=== PATIENT | male | born 1970 | race African-American/Black ===

== ENCOUNTER 2018-08-12 15:12 | Emergency (ER) | payer MEDICAID ==
[~2018-08-12] VITALS: Ht 182.9 cm; Wt 104.3 kg
--- NOTE | 2018-08-12 15:59 | EKG ---
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
--- NOTE | 2018-08-12 15:59 | PHYS DOC ---
Past Medical History Past Medical History: CVA, Diabetes-Type II, DVT, [place] Additional Past Medical Histor: pancreatitis, hyperlipidemia, PE, substance abuse Smoking: Cigarettes Alcohol Use: Rarely Drug Use: None Adult General Chief Complaint Chief Complaint: CHEST PAIN HPI HPI 48-year-old male presents to ER via POV for complaints of chest pain. Patient reports chest pain started getting worse approximately 15 minutes ago while sitting at his cousin's house. Patient reports he just left AMA from [facility] today and his sister had picked him up today. Patient reports he had a stroke and they had administered TPA on Wednesday. Patient reports the doctors had wanted him to stay longer at the hospital but he did not want to stay due to his dislike of the hospital seen. Patient reports he has had ongoing mid chest pain while he was inpatient at . Patient reports pain today is similar to what he was experiencing however approximately 15 minutes ago pain did slightly increase so he came to hospital for evaluation. Patient reports he was diagnosed approximately 8 months ago with a DVT in his right lower extremity and has been on Coumadin for that. Patient during initial exam had conflicting recall of his recent hospitalization making it difficult to determine what tx he had received at . Discussed obtaining records from [facility] to further determine his treatment received prior to treatment in the ER. Patient is agreeable with obtaining records from . Review of Systems Review of Systems Constitutional: Denies fever or chills. Denies weakness/fatigue Eyes: Denies change in visual acuity, redness, or eye pain [] HENT: Denies nasal congestion or sore throat [] Respiratory: Denies cough or shortness of breath [] Cardiovascular: Reports chest pain- denies palpitations. Reports had CP when he left [facility] similar to current pain- he reports pain did increase about 15 min. 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 Denies incontinence Musculoskeletal: Denies back/neck pain or joint pain [] Integument: Denies rash, swelling or skin lesions [] Neurologic: Denies headache or sensory changes. Denies dizziness or lightheadedness. Reports rt side weakness similar to when at Med. Endocrine: Denies polyuria or polydipsia [] All other systems were reviewed and found to be within normal limits, except as documented in this note. Current Medications Current Medications Current Medications Medications (Trade) Dose Ordered Sig/Shane Start Time Stop Time Status Last Admin Dose Admin Acetaminophen (Tylenol) 650 mg 1X ONCE 08/12/18 17:30 08/12/18 17:48 DC Allergies Allergies Allergies Coded Allergies Type Severity Reaction Last Updated Verified NSAIDS (Non-Steroidal Anti-Inflamma Allergy Intermediate 08/12/18 Yes aspirin Allergy Intermediate 08/12/18 Yes morphine Allergy Intermediate 08/12/18 Yes prednisone Allergy Intermediate 08/12/18 Yes Physical Exam Physical Exam Constitutional: Well developed, well nourished, no acute distress, non-toxic appearance. Clear speech with symmetric facial features. No slurring of words HENT: Normocephalic, atraumatic, bilateral ears normal, oropharynx moist, no oral exudates, nose normal. [] Eyes: 3 mm PERRLA, EOMI, no nystagmus conjunctiva normal, no discharge. [] Neck: Normal range of motion, no tenderness, supple, no stridor. [] Cardiovascular:Heart rate regular rhythm, no murmur [] Lungs & Thorax: Bilateral breath sounds clear to auscultation. Respirations equal and nonlabored Abdomen: Bowel sounds normal, soft, no tenderness, no masses, no pulsatile masses. [] Skin: Warm, dry, no erythema, no rash. [] Back: No tenderness, no CVA tenderness. [] Extremities: No tenderness, no cyanosis, no clubbing, no edema. [] Neurologic: Alert and oriented X 3, normal motor function, during exam when asked to lift rt leg pt initially stated he had was unable to lift- when told he was visualized standing from w/c to the ER cart with full use of rt LE pt then was able to lift rt leg with no drift. Pt did similar with rt upper extremity- telephonic case manager was equal once again following pt being informed that he was visualized with movement he was able to move rt arm- although does have less movement in rt upper extrem. Uncertain if this is an accurate exam as pt appeared to minimize his movements purposely Psychologic: Affect normal, judgement normal, mood normal. [] Current Patient Data Vital Signs Vital Signs Date Time Temp Pulse Resp B/P (MAP) Pulse Ox O2 Delivery O2 Flow Rate FiO2 08/12/18 17:09 84 18 121/78 (92) 96 Room Air 11/2/18 15:19 99.0 99.0 Lab Values Laboratory Tests Test 08/12/18 16:28 08/12/18 16:30 Prothrombin Time 15.8 SEC (11.7-14.0) H Prothrombin Time INR 1.3 (0.8-1.1) H PTT 26 SEC (24-38) Sodium Level 140 mmol/L (136-145) Potassium Level 3.4 mmol/L (3.5-5.1) L Chloride Level 106 mmol/L (98-107) Carbon Dioxide Level 23 mmol/L (21-32) Anion Gap 11 (6-14) 17 mmol/L (6-14) H Blood Urea Nitrogen 11 mg/dL (8-26) Creatinine 1.1 mg/dL (0.7-1.3) Estimated GFR (Cockcroft-Gault) 71.1 BUN/Creatinine Ratio 10 (6-20) Glucose Level 90 mg/dL (70-99) 87 mg/dL (70-99) Calcium Level 9.4 mg/dL (8.5-10.1) Total Bilirubin 0.4 mg/dL (0.2-1.0) Aspartate Amino Transferase (AST) 29 U/L (15-37) Alanine Aminotransferase (ALT) 48 U/L (16-63) Alkaline Phosphatase 93 U/L (46-116) Troponin I Quantitative < 0.017 ng/mL (0.000-0.055) Total Protein 7.6 g/dL (6.4-8.2) Albumin 3.4 g/dL (3.4-5.0) Albumin/Globulin Ratio 0.8 (1.0-1.7) L POC Hemoglobin 12.2 g/dL (14-18) L POC Hematocrit 36 % (37-52) L POC Sodium 141 mmol/L (135-145) POC Potassium 3.4 mmol/L (3.5-5.0) L POC Chloride 106 mmol/L (98-110) POC Total CO2 22 mmol/L (23-32) L POC Blood Urea Nitrogen 10 mg/dL (8-26) POC Creatinine 1.0 mg/dL (0.5-1.4) POC Ionized Calcium (Noemy) 1.12 mmol/L (1.13-1.32) L Laboratory Tests 08/12/18 16:28 08/12/18 16:30 EKG EKG EKG obtained 08/12/18 at [address] Dove Sinus tachycardia Rate 116 No STEMI Radiology/Procedures Radiology/Procedures PROCEDURE: CT HEAD WO CONTRAST PQRS Compliance Statement: One or more of the following individualized dose reduction techniques were utilized for this examination: 1. Automated exposure control 2. Adjustment of the mA and/or kV according to patient size 3. Use of iterative reconstruction technique CT HEAD WITHOUT CONTRAST History: POSSIBLE CVA, RIGHT SIDE NUMBNESS Comparison: CT head without contrast, [facility], July 10, 2014. Procedure: Axial images are obtained of the head from the skull base through the vertex without IV contrast. Findings: The ventricles and sulci are normal for the patient's age. No mass-effect, midline shift, hemorrhage, extra-axial fluid collection, or obvious acute infarction is identified. Basilar cisterns are patent. Bone windows demonstrate no acute calvarial abnormality. The visualized paranasal sinuses are clear. Mastoid air cells are well aerated. IMPRESSION: No acute intracranial abnormality. Electronically signed by: Anand Robb MD (08/12/2018 4:13 PM) [id number] DICTATED and SIGNED BY: ANAND ROBB MD DATE: 08/12/18 1610 PROCEDURE: CHEST AP ONLY CHEST AP ONLY Clinical Indication: CHEST PAIN Comparison: Two-view chest, December 17, 2009. Findings: The cardiomediastinal silhouette is normal. Lungs are clear. There is no pneumothorax. No pleural effusion is appreciated. No acute bone abnormality. IMPRESSION: No acute cardiopulmonary process. Electronically signed by: Anand Robb MD (08/12/2018 3:58 PM) [id number] DICTATED and SIGNED BY: ANAND ROBB MD DATE: 08/12/18 1556 Course & Med Decision Making Course & Med Decision Making Pertinent Labs and Imaging studies reviewed. (See chart for details) After initial exam w/pt discussed pt's case and plan of care with Dr. Dove- pt provided conflicting information to him than he had with this provider on when he had stopped his Coumadin and when he left AMA from [facility]. 1715: There was a delay in getting patient's labs- he reports he is a " difficult stick". Discussed test results with patient with EKG showing no acute ST elevation or STEMI and ISTAT troponin <0.017; H&H stable at 12.2/36; chest x- ray with no acute findings. Head CT no acute findings this was discussed in depth with patient along with waiting on medical records from patient's recent admission this week. Pt is not wanting admission unless pain can be managed. Discuss that ACS could not be completely r/o with initial troponin as he had reported CP had increased just TREASURY ASSOCIATE to this ER. Pt after discussion is still not wanting to be admitted. Discussed repeating troponin in 2 hours to further rule out ACS- and pt is agreeable with this plan. Will provide patient with dose of Tylenol for pain. Patient at this time is in no visible distress with heart rate 84 and O2 sat 99% on room air. Pt remains neuro and vascular intact in all extremities. Patient is alert and oriented 3 with no neuro focal deficits. 1738: RN reports patient called out and is requesting to leave the ER. Upon entering the room patient reports he is not willing to stay for repeat troponin and is wanting to be discharged from the ER. Discussion had with patient regarding repeat troponin to further rule out ACS and that at this time he would have to check out AMA as further testing was advised. Patient was educated on risks of leaving AMA as well as benefits from staying for further testing. Patient verbalized understanding however is still wanting to check out AMA without repeat troponin or further monitoring. Should be noted that pt was able to ambulate without assist and dress himself- he was seen in the doorway of R[facility] with steady gait waiting on AMA paperwork. He had clear speech and was in no visible distress. Pt had no facial drooping, dragging of his rt LE, slurring of words, or difficulty grabbing paperwork from nurse. Pt walked out of the ER unassisted. Pt's paperwork had arrived via fax from [facility] as pt was leaving AMA. It was noted by Dr. Thaddeus Mercado MD that "there were several features on exam concerning for functional etiology of symptoms, including positive Norwood's sign and give way weakness. Pt also had persistent request of narcotics and refusal of other alternatives and refusal of NG tube. Pt also had refused to sign consent to request records from outside hospital. Regarding chest pain, ECG/troponin, CT chest w/o contrast, and VQ scan all unrevealing for etiology. Diagnosis likely not acute stroke, and more likely conversion disorder vs malingering. Pt requested to leave AMA overnight 08/10/18". Further noted by this physician "Pt able to ambulate out of unit". IN records it was noted "#PE/DVT -off Coumadin for 3d (ran out)" however pt reported to this ER he had stopped taking his Coumadin on Wednesday 08/08 and was admitted to on . Pt's MRA head w/o results from [facility] reported "no signifcant arterial stenosis or major branch vessel occlusion of the cerebral arterial vasculature"- CT chest w/o reported " unchanged size and contour of the thoracic aorta since September 2007 w/o calcified aortic plaque, intramural hematoma, or periaortic inflammation"; CXR report " The lung volume is normal. No pleural effusion or pneumothorax. Heart size is normal. Normal thoracic aorta ". In progress note on 08/10/18- Dr. Maria E Galvez MD reported "pt refusing to stay at . Pt stated that psychiatry and pain management promised medications to help with his 07/20 pain. Pt also stated that he spoke to another physician around 6:30 pm, who also promised him pain medications". Further writing from this physician "Pt continued to attempt to manipulate blurb writer into giving him medications". Pt had reported to this provider that he left AMA from prior to receiving a prescription for his Coumadin although there are discharge instructions in pt's records with information on his Rx'd Coumadin. So uncertain accuracy of pt's information he had provided during this ER visit. Dragon Disclaimer Dragon Disclaimer This electronic medical record was generated, in whole or in part, using a voice recognition dictation system. 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
--- NOTE | 2018-08-12 16:16 | RAD ---
PQRS Compliance Statement: One or more of the following individualized dose reduction techniques were utilized for this examination: 1. Automated exposure control 2. Adjustment of the mA and/or kV according to patient size 3. Use of iterative reconstruction technique CT HEAD WITHOUT CONTRAST History: POSSIBLE CVA, RIGHT SIDE NUMBNESS Comparison: CT head without contrast, [facility], July 10, 2014. Procedure: Axial images are obtained of the head from the skull base through the vertex without IV contrast. Findings: The ventricles and sulci are normal for the patient's age. No mass-effect, midline shift, hemorrhage, extra-axial fluid collection, or obvious acute infarction is identified. Basilar cisterns are patent. Bone windows demonstrate no acute calvarial abnormality. The visualized paranasal sinuses are clear. Mastoid air cells are well aerated. IMPRESSION: No acute intracranial abnormality. Electronically signed by: Anand Robb MD (08/12/2018 4:13 PM) [id number]
[2018-08-12 16:42] LABS: HEMOGLOBIN ISTAT 12.2 g/dL (14-18); ION CA ISTAT 1.12 mmol/L (1.13-1.32); POTASSIUM ISTAT 3.4 mmol/L (3.5-5.0)
[2018-08-12 16:49] LABS: PROTHROMBIN TIME PATIENT 15.8 SEC (11.7-14.0)
[2018-08-12 16:53] LABS: CALCIUM 9.4 mg/dL (8.5-10.1); CREATININE 1.1 mg/dL (0.7-1.3); GFR 71.1; POTASSIUM 3.4 mmol/L (3.5-5.1)
[2018-08-12 16:59] LABS: ALBUMIN 3.4 g/dL (3.4-5.0); ALBUMIN/GLOBULIN RATIO 0.8 (1.0-1.7); TOTAL BILIRUBIN 0.4 mg/dL (0.2-1.0); TOTAL PROTEIN 7.6 g/dL (6.4-8.2)
[2018-08-12 17:09] VITALS: BP 121/78
[2018-08-12] MEDS ORDERED: ACETAMINOPHEN 325 MG TABLET. PO ONE (17:30)
== END 2018-08-12 17:52 | disposition left against medical advice (07) ==
LOC: ER 15:12
DX: R07.89 Other chest pain (principal); I25.2 Old myocardial infarction; E11.9 Type 2 diabetes mellitus without complications; E78.00 Pure hypercholesterolemia, unspecified; Z86.711 Personal history of pulmonary embolism; F17.210 Nicotine dependence, cigarettes, uncomplicated; Z86.718 Personal history of other venous thrombosis and embolism; Z79.01 Long term (current) use of anticoagulants; Z88.6 Allergy status to analgesic agent; Z88.5 Allergy status to narcotic agent; Z88.8 Allergy status to other drugs, medicaments and biological substances
CPT/HCPCS: 36415; 70450; 71045; 80047; 80053; 84484; 85610; 85730; 93005; 99285-25

== ENCOUNTER 2020-05-28 01:35 | Inpatient (IN) | payer MEDICAID ==
[2020-05-28] VITALS (18 sets, daily range): BP systolic 123–176; BP diastolic 77–101
[~2020-05-28] VITALS: Ht 182.9 cm; Wt 85.7 kg
[~2020-05-28 01:35] MED LIST: APIX5TAB PO; ATOR40TA59 PO; DIPH25CA58 PO; EPIPEN0.3 MG/0.3 IM; FENT1PAT17 TP; GABA300C18 PO; LISI10TA2 PO; OXYC10TA46 PO; OXYC1TAB22 PO; PANT40TA77 PO; PROM25AM6 IJ
--- NOTE | 2020-05-28 01:57 | PHYS DOC ---
Past Medical History Past Medical History: CVA, Diabetes-Type II, DVT, [place] Additional Past Medical Histor: pancreatitis, hyperlipidemia, PE, substance abuse Smoking Status: Current Every Day Smoker Alcohol Use: Rarely Drug Use: None General Adult HPI: HPI: Patient is a 49 year old male who presents with swelling of his face. Patient told me that he has had this happen as long as he can remember. In addition he has family members who suffers from the same problem. He will intermittently develop swelling of his face and neck which eventually resulted in him needing to be intubated. He said he has been told that "his body is fighting himself ". Patient reports chest pain but he states that this chest pain and shortness of breath is secondary to the swelling that happens when this hits him. It also causes him to have some abdominal pain and he reports severe pain at this time. Given the emergent nature of this situation review of systems is limited to shortness of breath, positive for chest pain, no fever or chills, positive for abdominal pain, no nausea or vomiting, no melena or hematochezia. Review of Systems: Review of Systems: Limited secondary to patient's medical acuity] Heart Score: Risk Factors: Risk Factors: DM, Current or recent (<one month) smoker, HTN, HLP, family history of CAD, obesity. Risk Scores: Score 0 - 3: 2.5% MACE over next 6 weeks - Discharge Home Score 4 - 6: 20.3% MACE over next 6 weeks - Admit for Clinical Observation Score 7 - 10: 72.7% MACE over next 6 weeks - Early Invasive Strategies Current Medications: Current Medications Medications (Trade) Dose Ordered Sig/[facility] Start Time Stop Time Status Last Admin Dose Admin Atropine Sulfate (ATROPINE 0.5mg SYRINGE) 0.5 mg 1X ONCE 05/28/20 02:00 05/28/20 02:01 Midazolam HCl (Versed) 5 mg 1X ONCE 05/28/20 02:00 05/28/20 02:01 Rocuronium [place] (Zemuron) 42 mg 1X ONCE 05/28/20 02:00 05/28/20 02:01 UNV Allergies: Allergies: Allergies Coded Allergies Type Severity Reaction Last Updated Verified iodine Allergy Severe 09/15/19 Yes metoclopramide Allergy Severe 09/15/19 Yes ondansetron Allergy Severe ANAPHYLAXIS 09/15/19 Yes NSAIDS (Non-Steroidal Anti-Inflamma Allergy Intermediate 09/15/19 Yes aspirin Allergy Intermediate 09/15/19 Yes morphine Allergy Intermediate 09/15/19 Yes prednisone Allergy Intermediate 09/15/19 Yes Physical Exam: PE: Constitutional: Well developed, well nourished, moderate pain distress non-toxic appearance. [] HENT: Normocephalic, atraumatic, bilateral external ears normal, oropharynx moist, no oral exudates, nose normal. Tongue is normal in size, uvula is mildly enlarged, [] Eyes: PERRLA, EOMI, conjunctiva normal, no discharge. [] Neck: Normal range of motion, no tenderness, supple, no stridor. Soft tissue swelling of the lateral neck no masses [] Cardiovascular:Heart rate regular rhythm, no murmur [] Lungs & Thorax: Bilateral breath sounds clear to auscultation [] Abdomen: Bowel sounds normal, soft, no tenderness, no masses, no pulsatile masses. [] Skin: Warm, dry, no erythema, no rash. [] Back: No tenderness, no CVA tenderness. [] Extremities: No tenderness, no cyanosis, no clubbing, ROM intact, no edema. [] Neurologic: Alert and oriented X 3, normal motor function, normal sensory function, no focal deficits noted. [] Psychologic: Affect agitated, judgment normal, mood frightened. [] EKG: EKG: [] Radiology/Procedures: Radiology/Procedures: Indication: Respiratory failure Consent: Unable to give consent due to emergent nature. Medications Used: see nursing note Procedure: The patient was placed in the appropriate position. Intubation was performed with direct laryngoscope and a gum bougie as well as a 7.5 ETT. ETT was secured at 22 cm at the teeth. Initial confirmation of placement included bilateral breath sounds, tube fogging, adequate chest rise, adequate pulse oximetry reading. A chest x-ray to verify correct placement of the tube showed appropriate tube position. The patient tolerated the procedure well. Complications: none.[] Indication: Vascular access Consent: The patient provided consent for this procedure. Procedure: The patient was placed in the supine position. The right IJ area was prepped and draped in the usual fashion. Using ultrasound we were able to identify a possible area that would be consistent with the internal jugular vein. However after 2 attempts I was unable to maintain a high level of confidence that I was in the appropriate vein. I then switched to the left side. The left IJ area was then prepped and draped in the usual fashion. Using ultrasound I was able to identify very small left internal jugular vein.I was unable to cannulate secondary to a code being called at the time. I then abandoned the procedure and asked anesthesia to proceed with insertion. The patient tolerated the procedure well. Complications: Unable to perform [] Course & Med Decision Making: Course & Med Decision Making Pertinent Labs and Imaging studies reviewed. (See chart for details) 0156-after discussion with the patient I think he needs emergent intubation. I did discuss the treatment with the pharmacy and he did they do not have any C1 esterase inhibitor available to him. In addition no treatments are really effective hereditary angioedema. Although I do not know that this is the definitive diagnosis I highly suspect it. We will go ahead and treat with epinephrine and Benadryl and Pepcid. [] Dragon Disclaimer: Dragon Disclaimer: This electronic medical record was generated, in whole or in part, using a voice recognition dictation system. Departure Departure Impression: Primary Impression: Hereditary angioedema Additional Impressions: Acute respiratory failure Qualified Codes: J96.00 - Acute respiratory failure, unspecified whether with hypoxia or hypercapnia Chest pain Qualified Codes: R07.9 - Chest pain, unspecified Disposition: ADMITTED INPATIENT Condition: CRITICAL Referrals: UNKNOWN PCP NAME (PCP) Justicifation of Admission Dx: Justifications for Admission: Justification of Admission Dx: Yes Respiratory Failure: Airway Obstruction Critical Care Note Total Time (mins): 75 Comments A total of 75 minutes of critical care time was billed secondary to impending collapse of the cardiovascular and respiratory system. This was time billed outside of any procedure or teaching time. ELVIE DURAN MD May 28, 2020 01:57
[2020-05-28] MEDS ORDERED: ATROPINE 0.5 MG/5 ML DISP.SYRINGE. IV ONE (02:00)
[2020-05-28] MEDS ORDERED: MIDAZOLAM HCL/PF 5 MG/5 ML VIAL. NS ONE ×2 (02:00→04:00)
[2020-05-28] MEDS ORDERED: ROCURONIUM 50 MG/5 ML VIAL. IV ONE (02:00)
[2020-05-28] MEDS ORDERED: PROPOFOL 10 MG/ML (20ML) VIAL. IV ONE ×4 (02:03→03:22)
[2020-05-28] MEDS ORDERED: PROPOFOL 50 ML IV ONE (02:30)
[2020-05-28] MEDS ORDERED: PROPOFOL 100 ML IV PRN (02:30)
[2020-05-28] MEDS ORDERED: FAMOTIDINE 20 MG/2 ML VIAL IVP ONE (03:00)
[2020-05-28] MEDS ORDERED: diphenhydrAMINE 50 MG/ML VIAL IVP ONE ×2 (03:00→12:00)
--- NOTE | 2020-05-28 03:05 | RAD ---
INDICATION: Reason: Postintubation / Spl. Instructions: / History: COMPARISON: September 12, 2019 FINDINGS: Single view of chest obtained. Endotracheal tube near thoracic inlet. Enteric tube is seen coursing below the diaphragm with tip at expected location of stomach. Air-filled prominent loops of bowel and partially visualized left upper quadrant of abdomen. Hazy opacity at the left greater than right lung base IMPRESSION: * Lines and tubes as above. * Hazy opacity at the left greater than right lung base which could be from atelectasis, infiltrate or aspiration. Electronically signed by: Renny Goncalves MD (05/28/2020 3:02 AM) [id number]
[2020-05-28 04:58] LABS: BASE EXCESS ABG 0 mmol/L (-3-3); FIO2 ABG 40; HCO3 ABG 25 mmol/L (21-28); PCO2 ABG 44 mmHg (35-46); PO2 ABG 148 mmHg (75-108); SAT O2 ABG 99 % (92-99)
[2020-05-28] MEDS ORDERED: PROPOFOL 50 ML IV PRN (05:30)
--- NOTE | 2020-05-28 06:43 | RAD ---
INDICATION: Reason: pOST CENTRAL LINE / Spl. Instructions: / History: COMPARISON: Earlier same day FINDINGS: Single view of chest obtained. Endotracheal tube mid thoracic trachea. Enteric tube is seen with tip at left upper quadrant of the abdomen at expected location of the stomach. Right-sided vascular catheter with tip projecting over atriocaval junction. Mild opacity at the left lung base. IMPRESSION: * Lines and tubes as above. * Hazy opacity left lung base which could be from atelectasis or infiltrate. Electronically signed by: Renny Goncalves MD (05/28/2020 6:41 AM) [id number]
[2020-05-28 07:00] LABS: BILIRUBIN,URINE NEGATIVE (NEG); CLARITY,URINE CLEAR; COLOR,URINE YELLOW; NITRITE,URINE NEGATIVE (NEG); PH,URINE 6.5 (<5.0-8.0); PROTEIN,URINE NEGATIVE (NEG-TRACE)
[2020-05-28 07:07] LABS: AMPHETAMINE/METHAMPHETAMINE NEG (NEG); BARBITURATES NEG (NEG); BENZODIAZEPINES POS (NEG); CANNABINOIDS NEG (NEG); COCAINE NEG (NEG); METHADONE NEG (NEG); OPIATES POS (NEG); PHENCYCLIDINE NEG (NEG)
[2020-05-28] MEDS ORDERED: ROCURONIUM 50 MG/5 ML VIAL. ONE (07:07)
[2020-05-28] MEDS ORDERED: diphenhydrAMINE 50 MG/ML VIAL ONE (07:15)
[2020-05-28] MEDS ORDERED: FAMOTIDINE 20 MG/2 ML VIAL ONE (07:15)
[2020-05-28 07:19] LABS: AMORPHOUS SEDIMENT,UR PRESENT /HPF; BACTERIA,URINE 0 /HPF (0-FEW); RBC,URINE OCC /HPF (0-2); WBC,URINE 0 /HPF (0-4)
[2020-05-28 07:19] LABS: BASO % 1 % (0-3); EOS # 0.2 x10^3/uL (0.0-0.7); EOS % 4 % (0-3); HEMATOCRIT 34.5 % (39.0-53.0); HEMOGLOBIN 11.6 g/dL (13.0-17.5); LYMPH # 0.7 x10^3/uL (1.0-4.8); LYMPH % 18 % (24-48); MEAN CORPUSCULAR HEMOGLOBIN 30 pg (25-35); MEAN CORPUSCULAR HGB CONC 34 g/dL (31-37); MEAN CORPUSCULAR VOLUME 88 fL (79-100); MONO # 0.3 x10^3/uL (0.0-1.1); MONO % 9 % (0-9); NEUT # 2.7 x10^3/uL (1.8-7.7); NEUT % 68 % (31-73); PLATELET COUNT 216 x10^3/uL (140-400); RED BLOOD COUNT 3.91 x10^6/uL (4.30-5.70); RED CELL DISTRIBUTION WIDTH 14.4 % (11.5-14.5); WHITE BLOOD COUNT 3.9 x10^3/uL (4.0-11.0)
[2020-05-28] MEDS: IV NORMAL SALINE 1000ML BAG 1,000 ML IV SCH ×2 (07:25→21:15)
[2020-05-28 07:29] LABS: CALCIUM 9.1 mg/dL (8.5-10.1); CREATININE 0.6 mg/dL (0.7-1.3); GFR 172.6; POTASSIUM 3.5 mmol/L (3.5-5.1)
[2020-05-28] MEDS: amLODIPine BESYLATE 10 MG TABLET PO SCH (11:57)
--- NOTE | 2020-05-28 12:09 | CONS ---
DATE OF CONSULTATION: 05/28/2020 PULMONARY CONSULTATION REASON FOR CONSULTATION: Respiratory failure, angioedema. HISTORY OF PRESENT ILLNESS: The patient is a 49-year-old male who has known history of sarcoidosis, details of which are unknown. He has history of hereditary angioedema. He has history of tongue and face swelling chronically. Has required intubation a month ago. He presented to [facility] with swelling of his face. He had some chest pain as well as shortness of breath. There was some abdominal pain as well. The patient was intubated for airway protection. He has allergies to NONSTEROIDAL ANTI-INFLAMMATORY WELL IODINE AND PREDNISONE. He was transferred to our facility for further care. Currently, he is intubated and sedated with Versed. ABG showed a pH of 7.38, pCO2 of 44 and a pO2 148 on 40% FiO2. His urine drug screen was positive for opiates. I have been asked to see him for further evaluation. I have reviewed the patient's chest x-ray. No definite consolidation seen. He has some atelectasis of the left base. PAST MEDICAL HISTORY: History of sarcoidosis, details unknown, history of PE. History of deep venous thrombosis, history of CVA, history of substance abuse and history of hereditary angioedema. PAST SURGICAL HISTORY: Unknown. ALLERGIES: NONSTEROIDALS, ASPIRIN, IODINE, METOCLOPRAMIDE, MORPHINE, ONDANSETRON, AND PREDNISONE. REVIEW OF SYSTEMS: Unable to obtain from the patient. SOCIAL HISTORY: Is everyday smoker. MEDICATIONS: Reviewed as listed in the MRAD including Versed, fentanyl and Benadryl. PHYSICAL EXAMINATION: VITAL SIGNS: Reviewed. Blood pressure is stable, diastolic, mildly higher. Pulse ox 100%. HEENT: Visual exam done due to COVID suspected. No paradoxical breathing. SKIN: With no rash. EXTREMITIES: Leg with no edema and face with no obvious swelling. LABORATORY DATA: Reviewed. Chemistries: BUN and creatinine normal. INR 1.1. White cell count 3.9, hemoglobin 11.6 and platelets are 216. IMPRESSION: 1. Acute respiratory failure secondary to angioedema. This is a patient who has had hereditary angioedema and required intubation over a month ago. Currently, his facial swelling appears to have improved. He will be rested on assist control mode for another 24 hours. 2. History of deep venous thrombosis and pulmonary embolism, on home Eliquis. 3. History of sarcoidosis, details unknown. 4. History of tobacco use. RECOMMENDATIONS: 1. We will continue with present assist control mode along with sedation. 2. We will do the cuff deflation test in the next 24 hours. 3. Continue p.r.n. Benadryl. 4. Continue home Eliquis. 5. Stress ulcer prophylaxis. 6. Discussed with RN and RT. Critical care time is 37 minutes, Dr. Corbin. TEGAN MARTIN MD DR: BARAK/araceli JOB#: [id number] / [id number]
--- NOTE | 2020-05-28 12:39 | NUR ---
SS following for discharge planning. SS reviewed pt chart and discussed with pt RN. Pt is from home and is currently on the vent. COVID19 pending. SS will continue to follow for discharge planning.
--- NOTE | 2020-05-28 13:22 | HP ---
ADMIT DATE: 05/28/2020 CHIEF COMPLAINT: Shortness of breath, facial swelling. HISTORY OF PRESENT ILLNESS: The patient is a pleasant 49-year-old male well known to our service. We admit him once a month or so. At this time, he presents with unusual symptoms. He has swelling of his face. Apparently, this runs in his family. He lost his airway and had to be intubated in the ER, is now in the ICU on the vent. PAST MEDICAL HISTORY: Stroke, diabetes, hypertension, hyperlipidemia, PE, substance abuse, pancreatitis, tobacco abuse. ALLERGIES: NSAIDs, METOCLOPRAMIDE, MORPHINE, ONDANSETRON, AND PREDNISONE. FAMILY HISTORY: Diabetes. SOCIAL HISTORY: He quit drinking. He still takes drugs and smokes. MEDICATIONS: Reviewed, please refer to the MRAD. REVIEW OF SYSTEMS: Unable to obtain. The patient is on the vent. PHYSICAL EXAMINATION: VITALS: Within normal limits and are stable. GENERAL: He is intubated and sedated. HEENT: Normal cephalic atraumatic, external auditory canals are patent EYES: Extraocular muscles are intact, pupils are equally round and reactive to light and accommodation MUSCULOSKELETAL: Well developed, well nourished, good range of motion ENDOCRINE: No thyromegaly was palpated LYMPHATICS: No cervical chain or axillary nodes were noted HEMATOPOIETIC: No bruising NECK: Supple, no JVD, no thyromegaly was noted. LUNGS: He has decreased breath sound. He is on the vent, AC/16/450 with 40% FiO2 and 5 of PEEP and he is satting 100%. HEART: RRR, S1, S2 present. Peripheral pulses intact, no obvious murmurs were noted. ABDOMEN: Soft, nontender. Positive bowel sounds no organomegaly, normal bowel sounds. EXTREMITIES: Without any cyanosis, clubbing, or edema. Pedal pulses intact, Homans sign is negative. NEUROLOGIC: He is sedated. PSYCHIATRIC Unobtainable. SKIN: No ulcerations or rashes, good skin turgor, no jaundice. VASCULAR: Good capillary refill, neurovascular bundle appears to be intact. ASSESSMENT AND PLAN: Angioedema. The patient has been admitted. He got treated with IV Benadryl, IV Pepcid and IV Zemuron. We have consulted Pulmonary for vent management. Continue home meds including Eliquis. GI prophylaxis. LONG-TERM PROGNOSIS: Guarded. KEESHAL Blossom GARCIA DO DR: LURDES/araceli JOB#: [id number] / [id number]
[2020-05-28] MEDS: ANTI-COAG MONITOR BY PHARMACY. MC PRN (14:38)
[2020-05-28] MEDS: MIDAZOLAM HCL 100 MG in IV NORMAL SALINE 100ML 100 ML IV PRN (17:19)
[2020-05-28] MEDS: diphenhydrAMINE 50 MG/ML VIAL IVP SCH ×2 (17:19→23:43)
[2020-05-28] MEDS: FAMOTIDINE 20 MG/2 ML VIAL IVP SCH (21:14)
[2020-05-28] MEDS: APIXABAN 5 MG TABLET. PO SCH (21:14)
[2020-05-29] VITALS (21 sets, daily range): BP systolic 108–159; BP diastolic 67–99
[2020-05-29] MEDS: MIDAZOLAM HCL 100 MG in IV NORMAL SALINE 100ML 100 ML IV PRN (04:30)
[2020-05-29] MEDS: diphenhydrAMINE 50 MG/ML VIAL IVP SCH ×4 (06:02→23:45)
[2020-05-29 07:38] LABS: BASE EXCESS ABG -3 mmol/L (-3-3); HCO3 ABG 22 mmol/L (21-28); PCO2 ABG 37 mmHg (35-46); PO2 ABG 128 mmHg (75-108); SAT O2 ABG 98 % (92-99)
[2020-05-29] MEDS: FAMOTIDINE 20 MG/2 ML VIAL IVP SCH ×2 (07:39→20:49)
[2020-05-29] MEDS: amLODIPine BESYLATE 10 MG TABLET PO SCH (07:39)
[2020-05-29] MEDS: APIXABAN 5 MG TABLET. PO SCH ×2 (07:39→20:00)
[2020-05-29 09:24] LABS: FIO2 ABG 40
[2020-05-29] MEDS: ANTI-COAG MONITOR BY PHARMACY. MC PRN (09:32)
--- NOTE | 2020-05-29 10:09 | PDOC ---
PULMONARY PROGRESS NOTES DATE: 05/29/20 TIME: 10:06 Subjective Pt. is awake and alert, off sedation, Positive cuff leak, place on CPAP trial and tolerating Vitals Vital Signs Date Time Temp Pulse Resp B/P (MAP) Pulse Ox O2 Delivery O2 Flow Rate FiO2 05/29/20 09:00 75 18 145/83 (103) 100 Ventilator 05/29/20 07:52 98.7 98.7 Comments intubated Lungs: Clear, Other Cardiovascular: S1, S2 Abdomen: Soft, Non-tender Neuro Exam: Alert Extremities: No Edema Labs Laboratory Tests Test 05/28/20 04:55 05/28/20 06:41 05/28/20 06:48 05/29/20 07:15 O2 Saturation 99 % (92-99) 98 % (92-99) Arterial Blood pH 7.38 (7.35-7.45) 7.39 (7.35-7.45) Arterial Blood pCO2 at Patient Temp 44 mmHg (35-46) 37 mmHg (35-46) Arterial Blood pO2 at Patient Temp 148 mmHg (75-108) 128 mmHg (75-108) Arterial Blood HCO3 25 mmol/L (21-28) 22 mmol/L (21-28) Arterial Blood Base Excess 0 mmol/L (-3-3) -3 mmol/L (-3-3) FiO2 40 40 White Blood Count 3.9 x10^3/uL (4.0-11.0) Red Blood Count 3.91 x10^6/uL (4.30-5.70) Hemoglobin 11.6 g/dL (13.0-17.5) Hematocrit 34.5 % (39.0-53.0) Mean Corpuscular Volume 88 fL (79-100) Mean Corpuscular Hemoglobin 30 pg (25-35) Mean Corpuscular Hemoglobin Concent 34 g/dL (31-37) Red Cell Distribution Width 14.4 % (11.5-14.5) Platelet Count 216 x10^3/uL (140-400) Neutrophils (%) (Auto) 68 % (31-73) Lymphocytes (%) (Auto) 18 % (24-48) Monocytes (%) (Auto) 9 % (0-9) Eosinophils (%) (Auto) 4 % (0-3) Basophils (%) (Auto) 1 % (0-3) Neutrophils # (Auto) 2.7 x10^3/uL (1.8-7.7) Lymphocytes # (Auto) 0.7 x10^3/uL (1.0-4.8) Monocytes # (Auto) 0.3 x10^3/uL (0.0-1.1) Eosinophils # (Auto) 0.2 x10^3/uL (0.0-0.7) Basophils # (Auto) 0.0 x10^3/uL (0.0-0.2) Prothrombin Time 14.0 SEC (11.7-14.0) Prothromb Time International Ratio 1.1 (0.8-1.1) Activated Partial Thromboplast Time 31 SEC (24-38) Sodium Level 141 mmol/L (136-145) Potassium Level 3.5 mmol/L (3.5-5.1) Chloride Level 105 mmol/L (98-107) Carbon Dioxide Level 28 mmol/L (21-32) Anion Gap 8 (6-14) Blood Urea Nitrogen 9 mg/dL (8-26) Creatinine 0.6 mg/dL (0.7-1.3) Estimated GFR (Cockcroft-Gault) 172.6 Glucose Level 108 mg/dL (70-99) Calcium Level 9.1 mg/dL (8.5-10.1) Troponin I Quantitative < 0.017 ng/mL (0.000-0.055) Urine Collection Type Unknown Urine Color Yellow Urine Clarity Clear Urine pH 6.5 (<5.0-8.0) Urine Specific [place] 1.015 (1.000-1.030) Urine Protein Negative mg/dL (NEG-TRACE) Urine Glucose (UA) Negative mg/dL (NEG) Urine Ketones (Stick) Trace mg/dL (NEG) Urine Blood Negative (NEG) Urine Nitrite Negative (NEG) Urine Bilirubin Negative (NEG) Urine Urobilinogen Dipstick 1.0 mg/dL (0.2 mg/dL) Urine Leukocyte Esterase Negative (NEG) Urine RBC Occ /HPF (0-2) Urine WBC 0 /HPF (0-4) Urine Amorphous Sediment Present /HPF Urine Bacteria 0 /HPF (0-FEW) Urine Mucus Marked /LPF Urine Opiates Screen Pos (NEG) Urine Methadone Screen Neg (NEG) Urine Barbiturates Neg (NEG) Urine Phencyclidine Screen Neg (NEG) Urine Amphetamine/Methamphetamine Neg (NEG) Urine Benzodiazepines Screen Pos (NEG) Urine Cocaine Screen Neg (NEG) Urine Cannabinoids Screen Neg (NEG) Urine Ethyl Alcohol Neg (NEG) Laboratory Tests Test 05/29/20 07:15 O2 Saturation 98 % (92-99) Arterial Blood pH 7.39 (7.35-7.45) Arterial Blood pCO2 at Patient Temp 37 mmHg (35-46) Arterial Blood pO2 at Patient Temp 128 mmHg (75-108) Arterial Blood HCO3 22 mmol/L (21-28) Arterial Blood Base Excess -3 mmol/L (-3-3) FiO2 40 Medications Active Scripts Medications Dose Route/Sig Max Daily Dose Days Date Category FENTANYL 50mcg/hr (Fentanyl) 1 Each Patch.td72 1 Patch TP Q3DAYS 09/16/19 Reported Percocet 10-325 Mg Tablet (Oxycodone/Acetaminophen) 1 Each Tablet 2 Tab PO PRN Q4-6HRS PRN 09/13/19 Reported Oxycontin (Oxycodone HCl) 10 Mg Tab.er.12h 10 Mg PO BID 09/13/19 Reported Benadryl (Diphenhydramine Hcl) 25 Mg Capsule 50 Mg PO Q6HRS 09/13/19 Reported Phenergan (Promethazine Hcl) 25 Mg/1 Ml Ampul 25 Mg IJ PRN PRN 09/13/19 Reported Gabapentin 300 Mg Capsule 600 Mg PO DAILY 09/13/19 Reported Eliquis (Apixaban) 5 Mg Tablet 5 Mg PO DAILY 09/13/19 Reported Protonix (Pantoprazole Sodium) 40 Mg Tablet.dr 40 Mg PO DAILYAC 09/13/19 Reported Atorvastatin Calcium 40 Mg Tablet 1 Tab PO DAILY 09/13/19 Reported Lisinopril 10 Mg Tablet 1 Tab PO DAILY 09/13/19 Reported Epipen (Epinephrine) 0.3 Mg/0.3 Ml Auto.injct 0.3 Mg IM UD 09/13/19 Reported Impression . IMPRESSION: 1. Acute respiratory failure secondary to angioedema. This is a patient who has had hereditary angioedema and required intubation over a month ago. Currently, his facial swelling appears to have improved. He will be rested on assist control mode for another 24 hours.--- improved plan for extubation today 2. History of deep venous thrombosis and pulmonary embolism, on home Eliquis. 3. History of sarcoidosis, details unknown. 4. History of tobacco use. Plan . RECOMMENDATIONS: Pt. placed on CPAP trial this am, plan to proceed with extubation post ABG Cuff deflation test demonstrated positive cuff leak Continue p.r.n. Benadryl. Continue home Eliquis. Stress ulcer prophylaxis. Discussed with RN and RT. Critical care time is 30 minutes addend: Post extubation patient had some neck swelling but did ok. He reports 8 times intubations before. He has been reluctant for tracheostomy but agreed if has another intubation, he would be ok with with tracheostomy. TEGAN MARTIN MD May 29, 2020 10:09
--- NOTE | 2020-05-29 11:01 | NUR ---
Pt extubated to a 4L NC. Voice very hoarse. complaining of throat and chest pain. Good air movement auscultated over thachea area by RT. Sats at 100% on the NC. pt encouraged not to talk right now concentrate on breathing. Pt given suction catheter for when coughing. Call light within reach. Addendum: 05/29/20 at 1109 by ESPERANZA MORENO RN Dr Romero notified of the above.
[2020-05-29] MEDS ORDERED: EPINEPHrine 1 MG/ML VIAL ONE (11:22)
--- NOTE | 2020-05-29 11:28 | EKG ---
[facility] [address] [place] [address] Test Date: 2020-05-29 Test Time: 11:23:43 Pat Name: JAY WHITE Department: Room: 109 1 Gender: M Complex Case Manager: MONIKA : 1970 Requested By: GIANNI CARLSON Order Number: [id number] Reading MD: Measurements Intervals [place] Rate: 82 P: 90 MN: 178 QRS: 43 QRSD: 90 T: 62 QT: 382 QTc: 449 Interpretive Statements SINUS RHYTHM NORMAL ECG RI6.02 Compared to ECG 09/15/2019 19:41:44 Sinus tachycardia no longer present
[2020-05-29] MEDS ORDERED: RACEPINEPHRINE 2.25% 0.5 ML NEBU. NEB ONE (11:30)
[2020-05-29] MEDS: IV NORMAL SALINE 1000ML BAG 1,000 ML IV SCH ×2 (11:45→23:45)
[2020-05-29] MEDS ORDERED: HYDROmorphone 2 MG TABLET PO PRN (12:00)
[2020-05-29] MEDS: HYDROmorphone 2 MG/ML VIAL IV PRN ×6 (12:14→23:46)
[2020-05-29] MEDS ORDERED: ONDANSETRON PF 4 MG/2 ML VIAL. IVP PRN (13:30)
[2020-05-29] MEDS: diphenhydrAMINE 50 MG/ML VIAL IVP PRN ×2 (13:51→21:10)
[2020-05-29] MEDS ORDERED: fentaNYL 50MCG/HR PATCH 1 PATCH PATCH.TD72 TD SCH (14:00)
--- NOTE | 2020-05-29 14:00 | NUR ---
Pt requesting more benadryl. states when this happens at home he take 100mg every 6 hours for several days. PRN dose given as per order. Also pt states that pain medication is not working and unable to swallow pain pills at this time. Pt states I iva go home and take my pain pills to make the pain go away. Home medication verified and Dr Patterson notified and orders given. Pt willing to stay at this time. Pain medication given as per new order. Dr Romero called and updated of patient.
--- NOTE | 2020-05-29 15:31 | NUR ---
SS following up with discharge planning. SS reviewed pt chart and discussed with pt RN. Pt extubated today. Pt now on nasal canula oxygen. SS will continue to follow for discharge planning.
--- NOTE | 2020-05-29 20:52 | PDOC ---
PROGRESS NOTES Date of Service: DATE: 05/29/20 TIME: 20:49 Chief Complaint Chief Complaint Acute respiratory failure secondary to angioedema. 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 Plan: Vent management as per pulmonary regional engagement consultant supportive measures probable extubation later in the day reassess in the am DVT prophylaxis: Eliquis. Vitals Vitals Vital Signs Date Time Temp Pulse Resp B/P (MAP) Pulse Ox O2 Delivery O2 Flow Rate FiO2 05/29/20 18:25 16 99 Nasal Cannula 4.0 05/29/20 18:00 82 128/82 (97) 05/29/20 15:00 97.5 97.5 Physical Exam Lungs: Clear, Other Labs LABS Laboratory Tests Test 05/29/20 07:15 O2 Saturation 98 % (92-99) Arterial Blood pH 7.39 (7.35-7.45) Arterial Blood pCO2 at Patient Temp 37 mmHg (35-46) Arterial Blood pO2 at Patient Temp 128 mmHg (75-108) Arterial Blood HCO3 22 mmol/L (21-28) Arterial Blood Base Excess -3 mmol/L (-3-3) FiO2 40 Assessment and Plan Assessmemt and Plan Problems Medical Problems: (1) Acute respiratory failure Status: Acute (2) Chest pain Status: Acute (3) Hereditary angioedema Status: Acute Comment Review of Relevant I have reviewed the following items wandy (where applicable) has been applied. Labs Laboratory Tests Test 05/28/20 04:55 05/28/20 06:41 05/28/20 06:48 05/29/20 07:15 O2 Saturation 99 % (92-99) 98 % (92-99) Arterial Blood pH 7.38 (7.35-7.45) 7.39 (7.35-7.45) Arterial Blood pCO2 at Patient Temp 44 mmHg (35-46) 37 mmHg (35-46) Arterial Blood pO2 at Patient Temp 148 mmHg (75-108) 128 mmHg (75-108) Arterial Blood HCO3 25 mmol/L (21-28) 22 mmol/L (21-28) Arterial Blood Base Excess 0 mmol/L (-3-3) -3 mmol/L (-3-3) FiO2 40 40 White Blood Count 3.9 x10^3/uL (4.0-11.0) Red Blood Count 3.91 x10^6/uL (4.30-5.70) Hemoglobin 11.6 g/dL (13.0-17.5) Hematocrit 34.5 % (39.0-53.0) Mean Corpuscular Volume 88 fL (79-100) Mean Corpuscular Hemoglobin 30 pg (25-35) Mean Corpuscular Hemoglobin Concent 34 g/dL (31-37) Red Cell Distribution Width 14.4 % (11.5-14.5) Platelet Count 216 x10^3/uL (140-400) Neutrophils (%) (Auto) 68 % (31-73) Lymphocytes (%) (Auto) 18 % (24-48) Monocytes (%) (Auto) 9 % (0-9) Eosinophils (%) (Auto) 4 % (0-3) Basophils (%) (Auto) 1 % (0-3) Neutrophils # (Auto) 2.7 x10^3/uL (1.8-7.7) Lymphocytes # (Auto) 0.7 x10^3/uL (1.0-4.8) Monocytes # (Auto) 0.3 x10^3/uL (0.0-1.1) Eosinophils # (Auto) 0.2 x10^3/uL (0.0-0.7) Basophils # (Auto) 0.0 x10^3/uL (0.0-0.2) Prothrombin Time 14.0 SEC (11.7-14.0) Prothromb Time International Ratio 1.1 (0.8-1.1) Activated Partial Thromboplast Time 31 SEC (24-38) Sodium Level 141 mmol/L (136-145) Potassium Level 3.5 mmol/L (3.5-5.1) Chloride Level 105 mmol/L (98-107) Carbon Dioxide Level 28 mmol/L (21-32) Anion Gap 8 (6-14) Blood Urea Nitrogen 9 mg/dL (8-26) Creatinine 0.6 mg/dL (0.7-1.3) Estimated GFR (Cockcroft-Gault) 172.6 Glucose Level 108 mg/dL (70-99) Calcium Level 9.1 mg/dL (8.5-10.1) Troponin I Quantitative < 0.017 ng/mL (0.000-0.055) Urine Collection Type Unknown Urine Color Yellow Urine Clarity Clear Urine pH 6.5 (<5.0-8.0) Urine Specific [place] 1.015 (1.000-1.030) Urine Protein Negative mg/dL (NEG-TRACE) Urine Glucose (UA) Negative mg/dL (NEG) Urine Ketones (Stick) Trace mg/dL (NEG) Urine Blood Negative (NEG) Urine Nitrite Negative (NEG) Urine Bilirubin Negative (NEG) Urine Urobilinogen Dipstick 1.0 mg/dL (0.2 mg/dL) Urine Leukocyte Esterase Negative (NEG) Urine RBC Occ /HPF (0-2) Urine WBC 0 /HPF (0-4) Urine Amorphous Sediment Present /HPF Urine Bacteria 0 /HPF (0-FEW) Urine Mucus Marked /LPF Urine Opiates Screen Pos (NEG) Urine Methadone Screen Neg (NEG) Urine Barbiturates Neg (NEG) Urine Phencyclidine Screen Neg (NEG) Urine Amphetamine/Methamphetamine Neg (NEG) Urine Benzodiazepines Screen Pos (NEG) Urine Cocaine Screen Neg (NEG) Urine Cannabinoids Screen Neg (NEG) Urine Ethyl Alcohol Neg (NEG) Laboratory Tests Test 05/29/20 07:15 O2 Saturation 98 % (92-99) Arterial Blood pH 7.39 (7.35-7.45) Arterial Blood pCO2 at Patient Temp 37 mmHg (35-46) Arterial Blood pO2 at Patient Temp 128 mmHg (75-108) Arterial Blood HCO3 22 mmol/L (21-28) Arterial Blood Base Excess -3 mmol/L (-3-3) FiO2 40 Medications Current Medications Midazolam HCl (Versed) 5 mg 1X ONCE NS ; Start 05/28/20 at 02:00; Stop 05/28/20 at 02:01; Status DC Atropine Sulfate (ATROPINE 0.5mg SYRINGE) 0.5 mg 1X ONCE IV Last administered on 05/28/20at 02:02; Start 05/28/20 at 02:00; Stop 05/28/20 at 02:01; Status DC Rocuronium [place] (Zemuron) 42 mg 1X ONCE IV Last administered on 05/28/20at 02:04; Start 05/28/20 at 02:00; Stop 05/28/20 at 02:01; Status DC Propofol (Diprivan) 200 mg STK-MED ONCE IV ; Start 05/28/20 at 02:03; Stop 05/28/20 at 02:04; Status DC Propofol (Diprivan) 200 mg STK-MED ONCE IV ; Start 05/28/20 at 02:03; Stop 05/28/20 at 02:04; Status DC Propofol 50 ml @ 1.301 mls/ hr 1X ONCE IV Last administered on 05/28/20at 02:27; Start 05/28/20 at 02:30; Stop 05/28/20 at 02:31; Status DC Propofol 100 ml @ 1.301 mls/ hr CONT PRN IV SEE I/O RECORD; Start 05/28/20 at 02:30; Stop 05/29/20 at 10:05; Status DC Diphenhydramine HCl (Benadryl) 25 mg 1X ONCE IVP Last administered on 05/28/20at 07:32; Start 05/28/20 at 03:00; Stop 05/28/20 at 03:01; Status DC Famotidine (Pepcid Vial) 20 mg 1X ONCE IVP Last administered on 05/28/20at 07:31; Start 05/28/20 at 03:00; Stop 05/28/20 at 03:01; Status DC Propofol (Diprivan) 200 mg STK-MED ONCE IV ; Start 05/28/20 at 03:21; Stop 05/28/20 at 03:22; Status DC Propofol (Diprivan) 200 mg STK-MED ONCE IV ; Start 05/28/20 at 03:22; Stop 05/28/20 at 03:22; Status DC Midazolam HCl (Versed) 5 mg 1X ONCE NS ; Start 05/28/20 at 04:00; Stop 05/28/20 at 04:01; Status DC Propofol 50 ml @ 1.301 mls/ hr CONT PRN PRN IV SEDATION Last administered on 05/28/20at 07:39; Start 05/28/20 at 05:30; Stop 05/28/20 at 12:00; Status DC Sodium Chloride 1,000 ml @ 75 mls/hr [id number] IV Last administered on 05/28/20at 21:15; Start 05/28/20 at 06:00; Stop 05/29/20 at 05:59; Status DC Midazolam HCl 100 mg/Sodium Chloride 100 ml @ 1 mls/hr CONT PRN PRN IV SEE COMMENTS Last administered on 05/29/20at 04:30; Start 05/28/20 at 06:45; Stop at 10:05; Status DC Rocuronium [place] (Zemuron) 50 mg STK-MED ONCE .ROUTE ; Start 05/28/20 at 07:07; Stop 05/28/20 at 07:08; Status DC Diphenhydramine HCl (Benadryl) 50 mg STK-MED ONCE .ROUTE ; Start 05/28/20 at 07:15; Stop 05/28/20 at 07:15; Status DC Famotidine (Pepcid Vial) 20 mg STK-MED ONCE .ROUTE ; Start 05/28/20 at 07:15; Stop 05/28/20 at 07:15; Status DC Fentanyl Citrate 30 ml @ 2.5 mls/hr CONT PRN IV SEE PROTOCOL Last administered on 05/29/20at 04:30; Start 05/28/20 at 08:30; Stop 05/29/20 at 10:05; Status DC Apixaban (Eliquis) 5 mg BID PO Last administered on 05/29/20at 07:39; Start 05/28/20 at 21:00 Diphenhydramine HCl (Benadryl) 25 mg Q6HRS ONCE IVP Last administered on 05/28/20at 11:56; Start 05/28/20 at 12:00; Stop 05/28/20 at 12:01; Status DC Info (Anti-Coagulation Monitoring By Pharmacy) 1 each PRN DAILY PRN MC SEE COMMENTS Last administered on 05/29/20at 09:32; Start 05/28/20 at 10:45 Amlodipine Besylate (Norvasc) 10 mg DAILY PO Last administered on 05/29/20at 07:39; Start 05/28/20 at 12:00 Famotidine (Pepcid Vial) 20 mg BID IVP Last administered on 05/29/20at 07:39; Start 05/28/20 at 21:00 Diphenhydramine HCl (Benadryl) 25 mg PRN Q6HRS PRN IVP ITCHING Last administered on 05/29/20at 13:51; Start 05/28/20 at 13:15 Diphenhydramine HCl (Benadryl) 25 mg Q6HRS IVP Last administered on 05/29/20at 17:54; Start 05/28/20 at 18:00 Epinephrine HCl (Adrenalin) 1 mg STK-MED ONCE .ROUTE ; Start 05/29/20 at 11:22; Stop 05/29/20 at 11:22; Status DC Epinephrine (S2 Racepinephrine) 0.5 ml 1X ONCE NEB Last administered on 05/29/20at 11:32; Start 05/29/20 at 11:30; Stop 05/29/20 at 11:42; Status DC Sodium Chloride 1,000 ml @ 75 mls/hr [id number] IV Last administered on 05/29/20at 11:45; Start 05/29/20 at 11:45 Hydromorphone HCl (Dilaudid) 1 mg PRN Q4HRS PRN PO PAIN; Start 05/29/20 at 12:00; Status Cancel Hydromorphone HCl (Dilaudid) 1 mg PRN Q4HRS PRN IV MODERATE TO SEVERE PAIN Last administered on 05/29/20at 13:52; Start 05/29/20 at 12:15; Stop 05/29/20 at 13:58; Status DC Ondansetron HCl (Zofran) 4 mg PRN Q6HRS PRN IVP NAUSEA/VOMITING; Start 05/29/20 at 13:30 Fentanyl (Duragesic 50mcg/ Hr Patch) 1 patch Q3DAYS TD ; Start 05/29/20 at 14:00 Hydromorphone HCl (Dilaudid) 1 mg PRN Q2HR PRN IV MODERATE TO SEVERE PAIN Last administered on 05/29/20at 17:55; Start 05/29/20 at 14:00 Active Scripts Active Reported FENTANYL 50mcg/hr (Fentanyl) 1 Each Patch.td72 1 Patch TP Q3DAYS Percocet 10-325 Mg Tablet (Oxycodone/Acetaminophen) 1 Each Tablet 2 Tab PO PRN Q4-6HRS PRN Oxycontin (Oxycodone HCl) 10 Mg Tab.er.12h 10 Mg PO BID Benadryl (Diphenhydramine Hcl) 25 Mg Capsule 50 Mg PO Q6HRS Phenergan (Promethazine Hcl) 25 Mg/1 Ml Ampul 25 Mg IJ PRN PRN Gabapentin 300 Mg Capsule 600 Mg PO DAILY Eliquis (Apixaban) 5 Mg Tablet 5 Mg PO DAILY Protonix (Pantoprazole Sodium) 40 Mg Tablet.dr 40 Mg PO DAILYAC Atorvastatin Calcium 40 Mg Tablet 1 Tab PO DAILY Lisinopril 10 Mg Tablet 1 Tab PO DAILY Epipen (Epinephrine) 0.3 Mg/0.3 Ml Auto.injct 0.3 Mg IM UD Vitals/I & O Vital Sign - Last 24 Hours 05/28/20 05/28/20 05/28/20 05/28/20 21:00 22:00 22:25 22:30 Pulse 67 67 Resp 18 18 B/P (MAP) 140/78 (98) 143/77 (99) Pulse Ox 100 100 100 99 O2 Delivery Ventilator Ventilator Ventilator 05/28/20 05/28/20 05/28/20 05/28/20 23:00 23:27 23:59 23:59 Temp 97.6 97.6 Pulse 79 80 Resp 17 17 B/P (MAP) 140/83 (102) 129/77 (94) Pulse Ox 97 99 97 O2 Delivery Ventilator Mechanical Ventilator Ventilator 05/29/20 05/29/20 05/29/20 05/29/20 00:05 00:59 02:00 03:00 Pulse 79 78 81 Resp 17 14 17 B/P (MAP) 128/78 (95) 155/91 (112) 159/94 (115) Pulse Ox 97 97 99 98 O2 Delivery Ventilator Ventilator Ventilator Ventilator 05/29/20 05/29/20 05/29/20 05/29/20 03:45 04:00 04:00 04:30 Temp 98.7 98.7 Pulse 79 Resp 17 B/P (MAP) 156/99 (118) Pulse Ox 98 99 97 O2 Delivery Ventilator Ventilator Mechanical Ventilator 05/29/20 05/29/20 05/29/20 05/29/20 05:00 05:38 05:40 06:00 Pulse 87 88 Resp 18 16 B/P (MAP) 140/86 (104) 133/83 (100) Pulse Ox 98 97 98 98 O2 Delivery Ventilator Ventilator Ventilator 05/29/20 05/29/20 05/29/20 05/29/20 07:00 07:18 07:39 07:52 Temp 98.7 98.7 Pulse 71 71 Resp 18 B/P (MAP) 126/87 126/81 (96) Pulse Ox 100 100 O2 Delivery Mechanical Ventilator Ventilator Ventilator 05/29/20 05/29/20 05/29/20 05/29/20 08:00 09:00 10:06 10:35 Pulse 75 75 81 Resp 18 20 B/P (MAP) 154/87 (109) 145/83 (103) 150/90 (110) Pulse Ox 100 97 O2 Delivery Ventilator Ventilator Nasal Cannula O2 Flow Rate 4.0 05/29/20 05/29/20 05/29/20 05/29/20 11:33 12:00 12:14 12:28 Pulse 92 Resp 24 26 B/P (MAP) 146/90 (108) Pulse Ox 100 100 98 O2 Delivery Nasal Cannula Nasal Cannula Nasal Cannula Nasal Cannula O2 Flow Rate 4.0 4.0 4.0 4.0 05/29/20 05/29/20 05/29/20 05/29/20 13:52 13:55 14:47 15:00 Temp 97.5 97.5 Pulse 81 81 Resp 16 16 16 18 B/P (MAP) 128/78 (95) 133/81 (98) Pulse Ox 99 99 99 O2 Delivery Nasal Cannula Nasal Cannula Nasal Cannula Nasal Cannula O2 Flow Rate 4.0 4.0 4.0 05/29/20 05/29/20 05/29/20 05/29/20 16:00 16:00 16:02 16:32 Pulse 73 Resp 12 16 16 B/P (MAP) 118/73 (88) Pulse Ox 99 99 O2 Delivery Nasal Cannula Nasal Cannula Nasal Cannula O2 Flow Rate 4.0 4.0 4.0 4.0 05/29/20 05/29/20 05/29/20 05/29/20 17:00 17:55 18:00 18:25 Pulse 79 82 Resp 16 16 18 16 B/P (MAP) 112/79 (90) 128/82 (97) Pulse Ox 99 97 99 99 O2 Delivery Nasal Cannula Nasal Cannula Nasal Cannula Nasal Cannula O2 Flow Rate 4.0 4.0 4.0 Intake and Output0 05/28/20 05/28/20 05/29/20 15:00 23:00 07:00 Intake Total 996 ml 1114 ml Output Total 700 ml 802 ml 525 ml Balance -700 ml 194 ml 589 ml Justicifation of Admission Dx: Justifications for Admission: Justification of Admission Dx: Yes Respiratory Failure: Airway Obstruction GIANNI CARLSON MD May 29, 2020 20:52
--- NOTE | 2020-05-29 23:00 | NUR ---
Patient moved to room to ICU room 109 to 106. Green belongings bag with clothes and back pack left in room. Patient states he wanted to keep his wallet with him. Advised that it is possible to lost in linens. He further stated that he had $800 in his wallet. Asked if he wanted to keep it with security and that would be the safest place in order to security of wallet. He replied "no" and placed his wallet in green back. I did not witness $800 but saw a $20 bill. Placed green bag in corner of room.
[2020-05-30] VITALS (10 sets, daily range): BP systolic 110–133; BP diastolic 49–84
[2020-05-30] MEDS: diphenhydrAMINE 50 MG/ML VIAL IVP SCH ×2 (02:32→06:39)
[2020-05-30] MEDS: HYDROmorphone 2 MG/ML VIAL IV PRN ×4 (02:32→08:47)
--- NOTE | 2020-05-30 03:35 | NUR ---
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 Denies SOA and refused RT assessment. Appeared tearful and a stated he did feel like he was being treated well and wanted to get better so he could go home. Reports pain as a "spasm" and the dilaudid helps. Pain meds and PRN benedryl given. 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 Requested to speak to supervisor communications and signals. Patient care turned over to PEDRO Baltazar.
[2020-05-30] MEDS: diphenhydrAMINE 50 MG/ML VIAL IVP PRN ×2 (04:32→08:46)
--- NOTE | 2020-05-30 06:20 | NUR ---
After explanation to patient, bentley catheter removed without difficulty and urinal left at bedside. Educate patient to notify RN if he is unable to void and call for assistance if he needs to stand to void. Patient verbalized understanding.
[2020-05-30] MEDS: APIXABAN 5 MG TABLET. PO SCH (08:49)
[2020-05-30] MEDS: amLODIPine BESYLATE 10 MG TABLET PO SCH (09:00)
[2020-05-30] MEDS: FAMOTIDINE 20 MG/2 ML VIAL IVP SCH (09:03)
[2020-05-30] MEDS ORDERED: AMLO5TAB10 PO (09:10)
--- NOTE | 2020-05-30 09:16 | PDOC3 ---
Discharge Summary Visit Information Date of Admission: May 28, 2020 Date of Discharge: May 30, 2020 Admitting Diagnosis Comment: Acute respiratory failure secondary to hereditary angioedema Final Diagnosis Problems Medical Problems: (1) Acute respiratory failure Status: Acute (2) Chest pain Status: Acute (3) Hereditary angioedema Status: Acute Acute respiratory failure secondary to angioedema. Essential hypertension History of sarcoidosis Tobacco abuse COPD History of deep venous thrombosis and pulmonary embolism, on home Eliquis. Brief Hospital Course Allergies Allergies Coded Allergies Type Severity Reaction Last Updated Verified iodine Allergy Severe 09/15/19 Yes metoclopramide Allergy Severe 09/15/19 Yes ondansetron Allergy Severe ANAPHYLAXIS 09/15/19 Yes NSAIDS (Non-Steroidal Anti-Inflamma Allergy Intermediate 09/15/19 Yes aspirin Allergy Intermediate 09/15/19 Yes morphine Allergy Intermediate 09/15/19 Yes prednisone Allergy Intermediate 09/15/19 Yes Vital Signs Vital Signs Date Time Temp Pulse Resp B/P (MAP) Pulse Ox O2 Delivery O2 Flow Rate FiO2 05/30/20 08:47 18 Room Air 05/30/20 07:00 69 124/81 (95) 92 05/30/20 04:00 98.4 2.0 98.4 Lab Results Laboratory Tests Test 05/29/20 07:15 O2 Saturation 98 % (92-99) Arterial Blood pH 7.39 (7.35-7.45) Arterial Blood pCO2 at Patient Temp 37 mmHg (35-46) Arterial Blood pO2 at Patient Temp 128 mmHg (75-108) Arterial Blood HCO3 22 mmol/L (21-28) Arterial Blood Base Excess -3 mmol/L (-3-3) FiO2 40 Brief Hospital Course Mr. Christensen is a 49 old male who presented with acute respiratory failure secondary to angioedema and was promptly intubated, the patient fortunately enough was able to be extubated quite quickly. The patient had been taking lisinopril and I have strongly recommended to avoid BELEM inhibitors in ARB use as well. Amlodipine was started in the inpatient setting but he is says that due to his pain medications his blood pressure tends to run low. I have encouraged him to take a log of her BP readings at home in the meantime. I will provide him with a prescription for amlodipine 5 mg and encouraged him to follow-up with his primary care physician within 1 week. Signs and symptoms of alarm were discussed prior to discharge no changes were made to his home medications except for the discontinuation of the BELEM inhibitor and the recommendation to start a calcium channel marvin for better pressure control Greater than 35 minutes were spent in the discharge process the patient counseling coordination of care and arrangements for a safe discharge Assessment Assessment Gen.: well-developed well-nourished in no apparent distress Head: Normal shape atraumatic Eyes: Pupils equal reactive to light and accommodation, normal conjunctivae and lids Ears: Normal shape Nose: Normal shape no trauma Mouth: No exudates of the back of throat no thrush no lesions Neck: Supple no JVD no carotid bruit or lymphadenopathy no thyromegaly Chest: Lungs clear to auscultation with good inspiratory effort no crackles rales or rhonchi Cardiovascular: S1-S2 regular rhythm no murmurs gallops or rubs Abdomen: Bowel sounds present soft nontender no hepatosplenomegaly appreciated sign Extremities: No clubbing no cyanosis no edema peripheral pulses palpated bilaterally Neurological: Alert awake oriented in person time place and situation, cranial nerves II through XII intact, no motor or sensory deficits appreciated Psych: Appropriate mood, cooperative Discharge Information Condition at Discharge: Improved Follow Up: Weeks Disposition/Orders: D/C to Home Scheduled Amlodipine Besylate (Amlodipine Besylate) 5 Mg Tablet, 5 MG PO DAILY for HTN for 30 Days, #30 Prescribed by: GIANNI CARLSON MD on 05/30/20 0910 Apixaban (Eliquis) 5 Mg Tablet, 5 MG PO DAILY for blood thinner, (Reported) Entered as Reported by: SHWETHA PAYNE RN on 09/13/19 0645 Diphenhydramine Hcl (Benadryl) 25 Mg Capsule, 50 MG PO Q6HRS for Allergic reaction , (Reported) Entered as Reported by: SHWETHA PAYNE RN on 09/13/19 0645 Epinephrine (Epipen) 0.3 Mg/0.3 Ml Auto.injct, 0.3 MG IM UD for allergic reaction, #1 Ref 0 (Reported) Entered as Reported by: SHWETHA PAYNE RN on 09/13/19 0630 Fentanyl (FENTANYL 50mcg/hr) 1 Each Patch.td72, 1 PATCH TP Q3DAYS for pain, #10 (Reported) Entered as Reported by: PREMA DONALDSON on 09/16/19 1343 Gabapentin (Gabapentin) 300 Mg Capsule, 600 MG PO DAILY for NEUROGENIC PAIN, (Reported) Entered as Reported by: SHWETHA PAYNE RN on 09/13/19644 Oxycodone HCl (Oxycontin) 10 Mg Tab.er.12h, 10 MG PO BID for pain, (Reported) Entered as Reported by: SHWETHA PAYNE RN on 09/13/19644 Pantoprazole Sodium (Protonix ) 40 Mg Tablet.dr, 40 MG PO DAILYAC for GERD, (Reported) Entered as Reported by: SHWETHA PAYNE RN on 09/13/19644 Scheduled PRN Oxycodone/Apap 10-325 (Percocet 10-325 Mg Tablet ) 1 Each Tablet, 2 TAB PO PRN Q4-6HRS PRN for PAIN, Ref 0 (Reported) Entered as Reported by: SHWETHA PAYNE RN on 09/13/19644 Promethazine Hcl (Phenergan) 25 Mg/1 Ml Ampul, 25 MG IJ PRN PRN for GAS / BLOATING, (Reported) Entered as Reported by: SHWETHA PAYNE RN on 09/13/19644 Discontinued Medications Atorvastatin Calcium (Atorvastatin Calcium) 40 Mg Tablet, 1 TAB PO DAILY for High Cholesterol , #30 Ref 5 (Reported) Entered as Reported by: SHWETHA PAYNE RN on 09/13/19644 Last Action: Discontinued on 05/30/20 0900 by CLYDE VERDUGO Lisinopril (Lisinopril) 10 Mg Tablet, 1 TAB PO DAILY for Hypertention , #30 Ref 5 (Reported) Entered as Reported by: SHWETHA PAYNE RN on 09/13/19644 Last Action: Discontinued on 05/30/20 0900 by CLYDE VERDUGO Justicifation of Admission Dx: Justifications for Admission: Justification of Admission Dx: Yes Respiratory Failure: Airway Obstruction GIANNI CARLSON MD May 30, 2020 09:15
--- NOTE | 2020-05-30 09:29 | PDOC ---
PULMONARY PROGRESS NOTES DATE: 05/30/20 TIME: 09:27 Subjective Pt. is awake and alert, extubated 05/29 Vitals Vital Signs Date Time Temp Pulse Resp B/P (MAP) Pulse Ox O2 Delivery O2 Flow Rate FiO2 05/30/20 08:47 18 Room Air 05/30/20 07:00 69 124/81 (95) 92 05/30/20 04:00 98.4 2.0 98.4 General: Alert, No acute distress Lungs: Clear Cardiovascular: S1, S2 Abdomen: Soft, Non-tender Neuro Exam: Alert Extremities: No Edema Labs Laboratory Tests Test 05/29/20 07:15 O2 Saturation 98 % (92-99) Arterial Blood pH 7.39 (7.35-7.45) Arterial Blood pCO2 at Patient Temp 37 mmHg (35-46) Arterial Blood pO2 at Patient Temp 128 mmHg (75-108) Arterial Blood HCO3 22 mmol/L (21-28) Arterial Blood Base Excess -3 mmol/L (-3-3) FiO2 40 Medications Active Scripts Medications Dose Route/Sig Max Daily Dose Days Date Category FENTANYL 50mcg/hr (Fentanyl) 1 Each Patch.td72 1 Patch TP Q3DAYS 09/16/19 Reported Percocet 10-325 Mg Tablet (Oxycodone/Acetaminophen) 1 Each Tablet 2 Tab PO PRN Q4-6HRS PRN 09/13/19 Reported Oxycontin (Oxycodone HCl) 10 Mg Tab.er.12h 10 Mg PO BID 09/13/19 Reported Benadryl (Diphenhydramine Hcl) 25 Mg Capsule 50 Mg PO Q6HRS 09/13/19 Reported Phenergan (Promethazine Hcl) 25 Mg/1 Ml Ampul 25 Mg IJ PRN PRN 09/13/19 Reported Gabapentin 300 Mg Capsule 600 Mg PO DAILY 09/13/19 Reported Eliquis (Apixaban) 5 Mg Tablet 5 Mg PO DAILY 09/13/19 Reported Protonix (Pantoprazole Sodium) 40 Mg Tablet.dr 40 Mg PO DAILYAC 09/13/19 Reported Atorvastatin Calcium 40 Mg Tablet 1 Tab PO DAILY 09/13/19 Reported Lisinopril 10 Mg Tablet 1 Tab PO DAILY 09/13/19 Reported Epipen (Epinephrine) 0.3 Mg/0.3 Ml Auto.injct 0.3 Mg IM UD 09/13/19 Reported Impression . IMPRESSION: 1. Acute respiratory failure secondary to angioedema. This is a patient who has had hereditary angioedema and required intubation over a month ago. extubated 05/29 2. History of deep venous thrombosis and pulmonary embolism, on home Eliquis. 3. History of sarcoidosis, allergic to steroids 4. History of tobacco use. Plan . Extubated.05/29. on RA Continue p.r.n. Benadryl. Continue home Eliquis. Stress ulcer prophylaxis. Discussed with RN and RT. He reports 8 times intubations before. He has been reluctant for tracheostomy but agreed if has another intubation, he would be ok with with tracheostomy. ok with dc plans TEGAN MARTIN MD May 30, 2020 09:29
--- NOTE | 2020-05-30 11:05 | NUR ---
DC: Earlier pt was given sherbert and water which he handled w/o diff and took Eliqiis med w/o diff. Clear speech and good cough. Pt requested Dilaudid and Benadryl this morn and meds given.Pt requested to go home as he had job he needed to get to. Seen by Dr Romero and Savita. Rt SC TL Dc'd w/o diff with occlusive dsg and instructions to leave on 24 Hr. DC instructions and presc for Amlodipine given to pt. Cab pass given to pt. He is going to his pharmacy in [place] and he will get a ride from there. 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 Pt smoked cigarette prior to getting into cab w/o permission.
== END 2020-05-30 10:50 | disposition home or self-care (01) | DRG 208 ==
LOC: ER 01:35 → 1 WEST ICU 06:50
PROVIDERS: ADMIT Internal Medicine; ATTEND Internal Medicine
PROC: 0BH17EZ Insertion of Endotracheal Airway into Trachea, Via Natural or Artificial Opening (ICD-10-PCS; principal; 2020-05-28)
PROC: 5A1945Z Respiratory Ventilation, 24-96 Consecutive Hours (ICD-10-PCS; 2020-05-28)
PROC: 02HV33Z Insertion of Infusion Device into Superior Vena Cava, Percutaneous Approach (ICD-10-PCS; 2020-05-28)
PROC: B548ZZA Ultrasonography of Superior Vena Cava, Guidance (ICD-10-PCS; 2020-05-28)
DX: J96.00 Acute respiratory failure, unspecified whether with hypoxia or hypercapnia (principal); J98.11 Atelectasis; T78.3XXA Angioneurotic edema, initial encounter; J44.9 Chronic obstructive pulmonary disease, unspecified; I10 Essential (primary) hypertension; F17.200 Nicotine dependence, unspecified, uncomplicated; E78.5 Hyperlipidemia, unspecified; E11.9 Type 2 diabetes mellitus without complications; D86.9 Sarcoidosis, unspecified; D84.1 Defects in the complement system; Z86.73 Personal history of transient ischemic attack (TIA), and cerebral infarction without residual deficits; Z88.8 Allergy status to other drugs, medicaments and biological substances; Z86.718 Personal history of other venous thrombosis and embolism; Z86.711 Personal history of pulmonary embolism; Z83.3 Family history of diabetes mellitus; Z79.01 Long term (current) use of anticoagulants; Z88.6 Allergy status to analgesic agent; Z88.5 Allergy status to narcotic agent; Z91.041 Radiographic dye allergy status
CPT/HCPCS: 31500; 36415; 36556; 36600; 51702; 71045; 80048; 80307; 81001; 82805; 84484; 85025; 85610; 85730; 93005; 94002; 94003; 94640; 94760; 96374; 96375; 99291; 99292; J0461; J1170; J1200; J2250; J2704; J3010; J3490; J7030; G0378

== ENCOUNTER 2020-08-18 03:55 | Emergency (ER) | payer MEDICAID ==
[~2020-08-18] VITALS: Ht 185.4 cm; Wt 86.4 kg
[~2020-08-18 03:55] MED LIST changes: +AMLO-186 PO
--- NOTE | 2020-08-18 04:26 | PHYS DOC ---
Past Medical History Past Medical History: CVA, Diabetes-Type II, DVT, [place] Additional Past Medical Histor: pancreatitis, hyperlipidemia, PE, substance abuse Past Surgical History: Cholecystectomy Additional Past Surgical Histo: CHEST TUBE INSERTION; PEG TUBE Smoking Status: Current Every Day Smoker Alcohol Use: None Drug Use: None General Adult EDM: Chief Complaint: CHEST PAIN HPI: HPI: Patient is a 50 year old presents with a chief complaint of chest pain. Patient states he has a history of hereditary angioedema and feels like his chest is tightening up and causing his airway to close off. Patient has shortness of breath and this chest discomfort. Patient describes the symptoms as severe in intensity. Patient states he has been intubated multiple times in the past has had similar symptoms in the past. Patient states he gave himself epinephrine shot in the leg prior to arrival. Review of Systems: Review of Systems: Constitutional: Denies fever or chills. [] Eyes: Denies change in visual acuity. [] HENT: Denies nasal congestion or sore throat. [] Respiratory: Denies cough but has shortness of breath. [] Cardiovascular: Complains of chest pain GI: Complains of abdominal pain but no vomiting or diarrhea : Denies dysuria. [] Musculoskeletal: Denies back pain or joint pain. [] Integument: Denies rash. [] Neurologic: Denies headache, focal weakness or sensory changes. [] Endocrine: Denies polyuria or polydipsia. [] Lymphatic: Denies swollen glands. [] Psychiatric: Denies depression or anxiety. [] Heart Score: HEART Score for Chest Pain: HEART Score for Chest Pain Response (Comments) Value History Slighlty/Non-Suspicious 0 ECG Normal 0 Age >45 - < 65 1 Risk Factors 1 or 2 Risk Factors 1 Total 2 Risk Factors: Risk Factors: DM, Current or recent (<one month) smoker, HTN, HLP, family history of CAD, obesity. Risk Scores: Score 0 - 3: 2.5% MACE over next 6 weeks - Discharge Home Score 4 - 6: 20.3% MACE over next 6 weeks - Admit for Clinical Observation Score 7 - 10: 72.7% MACE over next 6 weeks - Early Invasive Strategies Current Medications: Active Scripts Active Reported Percocet 10-325 Mg Tablet (Oxycodone/Acetaminophen) 1 Each Tablet 2 Tab PO PRN Q4-6HRS PRN Oxycontin (Oxycodone HCl) 10 Mg Tab.er.12h 10 Mg PO BID Benadryl (Diphenhydramine Hcl) 25 Mg Capsule 50 Mg PO Q6HRS Eliquis (Apixaban) 5 Mg Tablet 5 Mg PO DAILY Protonix (Pantoprazole Sodium) 40 Mg Tablet.dr 40 Mg PO DAILYAC Epipen (Epinephrine) 0.3 Mg/0.3 Ml Auto.injct 0.3 Mg IM UD Allergies: Allergies: Allergies Coded Allergies Type Severity Reaction Last Updated Verified iodine Allergy Severe 09/15/19 Yes metoclopramide Allergy Severe 09/15/19 Yes ondansetron Allergy Severe ANAPHYLAXIS 09/15/19 Yes NSAIDS (Non-Steroidal Anti-Inflamma Allergy Intermediate 09/15/19 Yes aspirin Allergy Intermediate 09/15/19 Yes morphine Allergy Intermediate 09/15/19 Yes prednisone Allergy Intermediate 09/15/19 Yes Physical Exam: PE: Constitutional: Well developed, well nourished, anxious, speaks in full sentences, handle secretions well HENT: Normocephalic, atraumatic, bilateral external ears normal, no angioedema of the lips tongue or oropharynx. Nose normal. [] Eyes: PERRLA, EOMI, conjunctiva normal, no discharge. [] Neck: Normal range of motion, no tenderness, supple, no stridor. [] Patient appears to be forcefully flexing his sternocleidomastoid muscles to create the appearance of swelling behind the angle of the mandible Cardiovascular:Heart rate regular rhythm, peripheral pulses are intact cap refill is brisk Lungs & Thorax: Bilateral breath sounds clear, no respiratory distress Abdomen: soft, no tenderness, no masses, no pulsatile masses. [] Skin: Warm, dry, no erythema, no rash. [] Back: No tenderness, no CVA tenderness. [] Extremities: No tenderness, no cyanosis, no clubbing, ROM intact, no edema. [] Neurologic: Alert and oriented X 3, normal motor function, normal sensory function, no focal deficits noted. [] Psychologic: Anxious Current Patient Data: Vital Signs: Vital Signs Date Time Temp Pulse Resp B/P (MAP) Pulse Ox O2 Delivery O2 Flow Rate FiO2 08/18/20 04:37 86 140/97 (111) 99 Room Air 08/18/20 04:19 86 197/111 (139) 99 Room Air 08/18/20 04:04 92 178/107 (130) 100 Room Air 08/18/20 04:02 98.6 92 18 178/107 (130) 99 Room Air 98.6 EKG: EKG: [] EKG interpreted by me normal sinus rhythm with rate 89 normal axis normal intervals normal ST segments Radiology/Procedures: Radiology/Procedures: [][address] [address] IMAGING REPORT Signed PATIENT: JAY WHITE CACCOUNT: [id number] : 1970 LOCATION: ER AGE: 50 SEX: M EXAM STATUS: DEP ER ORD. PHYSICIAN: AMI CHRISTOPHER MD REASON: PATIENT STATES NECK IS SWELLING PROCEDURE: NECK SOFT TISSUE Study: CR NECK SOFT TISSUE Indication: Neck swelling. Comparison: 06/11/2020 Findings: The lateral view is diagnostic to the C5-C6 disc space. More inferiorly obscuration by overlapping osseous and soft tissue structures. Prevertebral soft tissue thickness is within normal limits. Unremarkable epiglottis. No radiopaque foreign body seen within the airway. Multilevel facet degeneration. Discogenic arthrosis and uncovertebral joint hypertrophy is greatest at C6-C7. Impression: No acute osseous or soft tissue abnormality throughout the adequately assessed neck to account for reported swelling. Electronically signed by: XANDER ROCHA MD (08/18/2020 6:24 AM) [id number] DICTATED and SIGNED BY: XANDER ROCHA MD DATE: 08/18/[address] [address] IMAGING REPORT Signed PATIENT: JAY WHITE CACCOUNT: [id number] : 1970 LOCATION: ER AGE: 50 SEX: M EXAM STATUS: DEP ER ORD. PHYSICIAN: AMI CHRISTOPHER MD REASON: CHEST PAIN PROCEDURE: PORTABLE CHEST 1V Study: CR PORTABLE CHEST 1V Indication: Chest pain. Comparison: 08/06/2020 Findings: The cardiomediastinal silhouette is within normal limits for size. Similar configuration of the zach. No confluent infiltrate, layering effusion or pneumothorax. Symmetric rounded densities at both lower lung arana favored nipple shadows. Impression: No acute radiographic abnormality of the chest. Electronically signed by: XANDER ROCHA MD (08/18/2020 6:20 AM) [id number] DICTATED and SIGNED BY: XANDER ROCHA MD DATE: 08/18/20619 Course & Med Decision Making: Course & Med Decision Making Pertinent Labs and Imaging studies reviewed. (See chart for details) [] Patient states he gave himself the epinephrine shot in the right thigh, I examined the thigh, there is no evidence of puncture wound 50-year-old male comes in with chest pain and a feeling like his throat is closing off. Reviewing the patient's old record he had similar episode in the past and when he was intubated. Patient was assessed several times by me in the ER and was able to handle secretions without difficulty, he had no stridor and no signs of angioedema in his airway. Patient kept asking for medications to knock him down, he was informed that he would not be getting any sedative medicines at this time. Patient then became upset and elected to sign out AMA after he refused lab to draw his blood. Patient understands the risk of signing out AMA including myocardial infarction pulmonary embolism respiratory failure and . Of note I am highly suspicious that the patient's behavior is concerning for drug-seeking behavior. Patient has multiple allergies to none opiate medications and has no objective signs of angioedema on my exam. Patient also had no puncture wound in his thigh where he said he gave himself an epi shot. Patient's chest x-ray and soft tissue neck shows no evidence of edema. Patient vital signs are stable in the ER other than hypertension. Oxygen levels are present Dragon Disclaimer: Dragon Disclaimer: This electronic medical record was generated, in whole or in part, using a voice recognition dictation system. Departure Departure Impression: Primary Impression: Chest pain Disposition: 07 AMA/ELOPED/LWBS Condition: STABLE Referrals: NO PCP (PCP) AMI CHRISTOPHER MD Aug 18, 2020 04:26
--- NOTE | 2020-08-18 04:34 | EKG ---
[facility] [address] [place] [address] Test Date: 2020-08-18 Test Time: 04:02:32 Pat Name: JAY WHITE Department: Room: Gender: M Bacon Slicer: : 1970 Requested By: AMI CHRISTOPHER Order Number: [id number] Reading MD: Measurements Intervals [place] Rate: 89 P: 51 MD: 162 QRS: 40 QRSD: 86 T: 60 QT: 354 QTc: 432 Interpretive Statements SINUS RHYTHM NORMAL ECG RI6.02 No previous ECG available for comparison
[2020-08-18 04:37] VITALS: BP 140/97
--- NOTE | 2020-08-18 06:23 | RAD ---
Study: CR PORTABLE CHEST 1V Indication: Chest pain. Comparison: 08/06/2020 Findings: The cardiomediastinal silhouette is within normal limits for size. Similar configuration of the zach. No confluent infiltrate, layering effusion or pneumothorax. Symmetric rounded densities at both lower lung arana favored nipple shadows. Impression: No acute radiographic abnormality of the chest. Electronically signed by: XANDER ROCHA MD (08/18/2020 6:20 AM) [id number]
--- NOTE | 2020-08-18 06:27 | RAD ---
Study: CR NECK SOFT TISSUE Indication: Neck swelling. Comparison: 06/11/2020 Findings: The lateral view is diagnostic to the C5-C6 disc space. More inferiorly obscuration by overlapping osseous and soft tissue structures. Prevertebral soft tissue thickness is within normal limits. Unremarkable epiglottis. No radiopaque foreign body seen within the airway. Multilevel facet degeneration. Discogenic arthrosis and uncovertebral joint hypertrophy is greatest at C6-C7. Impression: No acute osseous or soft tissue abnormality throughout the adequately assessed neck to account for reported swelling. Electronically signed by: XANDER ROCHA MD (08/18/2020 6:24 AM) [id number]
== END 2020-08-18 04:48 | disposition left against medical advice (07) ==
LOC: ER 03:55
DX: R07.89 Other chest pain (principal); R06.02 Shortness of breath; E11.9 Type 2 diabetes mellitus without complications; F17.200 Nicotine dependence, unspecified, uncomplicated; E78.5 Hyperlipidemia, unspecified; Z86.718 Personal history of other venous thrombosis and embolism; I25.2 Old myocardial infarction; Z86.73 Personal history of transient ischemic attack (TIA), and cerebral infarction without residual deficits; Z88.5 Allergy status to narcotic agent; Z88.6 Allergy status to analgesic agent; Z88.8 Allergy status to other drugs, medicaments and biological substances
CPT/HCPCS: 70360; 71045; 93005; 99284; 99285

== ENCOUNTER 2021-02-14 11:46 | Inpatient (IN) | payer MEDICAID ==
[~2021-02-14] VITALS: Ht 180.3 cm; Wt 86.3 kg
[~2021-02-14 11:46] MED LIST changes: +LISI10TA16 PO; -LISI10TA2 PO; +PROM25TA10 PO
[2021-02-14] MEDS ORDERED: EPINEPHrine 1 MG/ML VIAL IM PRN (12:00)
[2021-02-14] MEDS ORDERED: diphenhydrAMINE 50 MG/ML VIAL IM ONE (12:00)
[2021-02-14] MEDS ORDERED: DEXAMETHASONE SOD PHOS 20 MG/5 ML VIAL. IV ONE (12:00)
--- NOTE | 2021-02-14 12:03 | PDOC1 ---
History and Physical Date of Admission Date of Admission DATE: 02/14/21 TIME: 12:10 Identification/Chief Complaint Chief Complaint sudden onset throat swelling today, pain both jaws History of Present Illness History of Present Illness seen in ER sudden onset throat swelling today, pain both jaws GIVEN SQ EPI, DEXAMETHASONE IN ER BY DR IBARRA history of hereditary angioedema, who has required multiple intubations in the past at different hospitals and refused to have any elective tracheostomy. history of a CVA, history of factor V Leiden mutation for which he is on anticoagulation. Had abd pain and hematemesis in 09/2019 - EGD by Dr. Almonte then showed GERD and emesis-induced lesion at fundus. PT has prior, refusal for tracheostomy, leaves AMA unless gets requested meds, Past Medical History Past Medical History Angioedema Narcotic dependence CVA, Diabetes-Type II, DVT, [place], pancreatitis, hyperlipidemia, PE, substance abuse, HEREDITARY ANGIOEDEMA Cholecystectomy, CHEST TUBE INSERTION; PEG TUBE Pulmonary: Bronchitis GI: No pertinent hx Heme/Onc: Anemia NOS, Other Past Surgical History Past Surgical History: Other Family History Family History: No Significant, Hypertension Social History Drugs: Marijuana Current Medications Current Medications Current Medications Diphenhydramine HCl (Benadryl) 50 mg 1X ONCE IM ; Start 02/14/21 at 12:00; Stop 02/14/21 at 12:01; Status DC Dexamethasone Sodium Phosphate (Decadron) 10 mg 1X ONCE IV ; Start 02/14/21 at 12:00; Stop 02/14/21 at 12:01; Status DC Epinephrine HCl (Adrenalin) 0.3 mg PRN Q5MIN PRN IM ALLERGIC REACTION; Start 02/14/21 at 12:00 Active Scripts Active Reported Promethazine Hcl 25 Mg Tablet 25 Mg PO PRN BID PRN Percocet 10-325 Mg Tablet (Oxycodone/Acetaminophen) 1 Each Tablet 2 Tab PO PRN Q4-6HRS PRN Oxycontin (Oxycodone HCl) 10 Mg Tab.er.12h 10 Mg PO BID Benadryl (Diphenhydramine Hcl) 25 Mg Capsule 50 Mg PO Q6HRS Eliquis (Apixaban) 5 Mg Tablet 5 Mg PO DAILY Protonix (Pantoprazole Sodium) 40 Mg Tablet.dr 40 Mg PO DAILYAC Epipen (Epinephrine) 0.3 Mg/0.3 Ml Auto.injct 0.3 Mg IM UD Allergies Allergies: Coded Allergies: iodine (Verified Allergy, Severe, 09/15/19) metoclopramide (Verified Allergy, Severe, 09/15/19) ondansetron (Verified Allergy, Severe, ANAPHYLAXIS, 09/15/19) prochlorperazine (Verified Allergy, Severe, 09/16/20) NSAIDS (Non-Steroidal Anti-Inflamma (Verified Allergy, Intermediate, 09/15/19) aspirin (Verified Allergy, Intermediate, 09/15/19) morphine (Verified Allergy, Intermediate, 09/15/19) prednisone (Verified Allergy, Intermediate, 09/15/19) ROS Review of System Had abd pain and hematemesis in 09/2019 - EGD by Dr. Almonte then showed GERD and emesis-induced lesion at fundus. PT has prior, refusal for tracheostomy, leaves AMA unless gets requested meds, General: YES: Fatigue, Appetite PSYCHOLOGICAL ROS: YES: Anxiety, Depression Eyes: No Blurry vision, No Decreased vision, No Double vision, No Dry eyes, No Excessive tearing, No Eye Pain, No Itchy Eyes, No Loss of vision, No Photophobia, No Scotomata, No Uses contacts, No Uses glasses, No Other HEENT: No: Heacaches, Visual Changes, Hearing change, Nasal congestion, Nasal discharge, Oral lesions, Sinus pain, Sore Throat, Epistaxis, Sneezing, Snoring, Tinnitus, Vertigo, Vocal changes, Other ALLERGY AND IMMUNOLOGY: YES: Hives, Nasal Congestion Hematological and Lymphatic: YES: Bleeding Problems; No: Blood Clots, Blood Transfusions, Brusing, Night Sweats, Pallor, Swollen Lymph Nodes, Other Respiratory: No: Cough, Hemoptysis, Orthopnea, Pleuritic Pain, Shortness of breath, SOB with excertion, Sputum Changes, Stridor, Tachypnea, Wheezing, Other Cardiovascular: No Chest Pain, No Palpitations, No Orthopnea, No Paroxysmal Noc. Dyspnea, No Edema, No Lt Headedness, No Other Gastrointestinal: No Nausea, No Vomiting, No Abdominal Pain, No Diarrhea, No Constipation, No Melena, No Hematochezia, No Other Genitourinary: No Dysuria, No Frequency, No Incontinence, No Hematuria, No Retention, No Discharge, No Urgency, No Pain, No Flank Pain, No Other, No , No , No , No , No , No , No Musculoskeletal: No Gait Disturbance, No Joint Pain, No Joint Stiffness, No Joint Swelling, No Muscle Pain, No Muscular Weakness, No Pain In:, No Swelling In:, No Other Skin: Yes Dry Skin, Yes Rash, Yes Skin Lesion Changes Physical Exam Physical Exam General: Alert, Oriented X3, Cooperative, mod acute distress HEENT: Atraumatic TMJ'S swollen Lungs: Normal air movement Abdomen: Soft Extremities: No clubbing, No cyanosis Skin: No rashes, No breakdown Neuro: Normal speech, Sensation intact General: Oriented X3, Cooperative, mild distress HEENT: Atraumatic, Mucous membr. moist/pink Lungs: Clear to auscultation, Normal air movement Heart: RRR, no thrills, no gallops, no murmurs, no jug vein distention Breasts: Not examined Abdomen: Normal bowel sounds, Soft Rectal Exam: not examined Extremities: No cyanosis Neuro: Cranial nerves 3-12 NL Images Images MRI of the abdomen without contrast to include a MRCP 02/04/2021 CLINICAL HISTORY: Chronic abdominal pain. TECHNIQUE: Unenhanced T2-weighted axial and coronal fat saturated T2-weighted axial, diffusion-weighted axial and inversion phase T1-weighted axial images of the abdomen were obtained. Additionally thin section fat saturated T2-weighted coronal images of the abdomen were obtained. Multiplanar 3-D MIP reconstructed images of the biliary system were obtained for an MRCP. FINDINGS: Comparison is made to the patient's CT scan of the abdomen dated 02/02/2021. The liver, spleen, pancreas and adrenal glands are within normal limits. Rounded high signal intensity lesions are seen involving both kidneys on the T2-weighted images which measure 3 mm to 2.1 cm in size. These likely represent cysts. No further imaging evaluation is recommended. The abdominal aorta tapers normally. No free fluid is seen within the abdomen. There is no evidence of bowel obstruction. MRCP images demonstrate nonvisualization of the gallbladder consistent with a cholecystectomy. The common hepatic duct, left and right hepatic ducts and their branches, and common bile duct are normal in caliber as is the main pancreatic duct. No filling defect is seen. The marrow signal of the visualized bony structures is within normal limits. IMPRESSION: 1. Post cholecystectomy. 2. No evidence of choledocholithiasis. Electronically signed by: Dhaval Dave MD (02/04/2021 6:05 PM) [id number] DICTATED and SIGNED BY: DHAVAL DAVE MD DATE: 02/04/21 [id number] 0 VTE Prophylaxis Ordered VTE Prophylaxis Devices: No VTE Pharmacological Prophylaxi: Yes Assessment/Plan Assessment/Plan Impression: Hereditary angioedema with acute throat swelling HX factor V Leiden mutation for which he is on anticoagulation. ELIQUIS Narcotic dependence hx HX CVA, Diabetes-Type II, DVT, SC, hx pancreatitis, hx hyperlipidemia, HX PE, HX substance abuse, anemia ADMITTED ICU BED IV STEROIDS DECADRON 4 MG IV Q 6 HRS GI prophylaxis Consult DR MARTIN IV BENADRYL prn 25 mg q 6 hrs HOME MEDS ASPIRATION PRECAUTIONS hx noncompliance 35 min cc time Justifications for Admission Other Justification Seizure ELSIE HERCULES MD February 14, 2021 12:03
[2021-02-14] MEDS ORDERED: oxyCODONE/APAP 10/325 1 TAB TABLET ONE (14:11)
[2021-02-14] MEDS ORDERED: EPINEPHRINE 0.3 MG IM SCH (14:15)
[2021-02-14] MEDS ORDERED: 0.9 % SODIUM CHLORIDE 10 ML DISP.SYRIN. IV PRN (14:30)
[2021-02-14] MEDS ORDERED: MAG HYDROX/ALUMINUM HYD/SIMETH 30 ML ORAL.SUSP PO PRN (14:30)
[2021-02-14] MEDS ORDERED: IV NORMAL SALINE 1000ML BAG 1,000 ML IV SCH (14:30)
[2021-02-14] MEDS ORDERED: oxyCODONE/APAP 10/325 1 TAB TABLET PO ONE (14:30)
[2021-02-14] MEDS ORDERED: ONDANSETRON PF 4 MG/2 ML VIAL. IVP PRN (14:30)
[2021-02-14] MEDS ORDERED: diphenhydrAMINE 50 MG/ML VIAL IVP PRN (14:30)
[2021-02-14] MEDS ORDERED: CALCIUM CARBONATE 500 MG TAB.CHEW PO PRN (14:30)
[2021-02-14] MEDS ORDERED: BISACODYL 10 MG SUPP.RECT. PR PRN (14:30)
[2021-02-14] MEDS ORDERED: MAGNESIUM HYDROXIDE 2,400 MG/30 ML ORAL.SUSP. PO PRN (14:30)
[2021-02-14] MEDS ORDERED: PROMETHAZINE 12.5 MG TABLET. PO PRN (14:45)
[2021-02-14 14:50] LABS: CALCIUM 8.8 mg/dL (8.5-10.1); CREATININE 0.7 mg/dL (0.7-1.3); GFR 143.9; POTASSIUM 3.2 mmol/L (3.5-5.1)
[2021-02-14 14:53] VITALS: BP 161/93
[2021-02-14 14:57] LABS: ALBUMIN 3.3 g/dL (3.4-5.0); ALBUMIN/GLOBULIN RATIO 1.1 (1.0-1.7); TOTAL BILIRUBIN 0.3 mg/dL (0.2-1.0); TOTAL PROTEIN 6.3 g/dL (6.4-8.2)
[2021-02-14] MEDS ORDERED: PANTOPRAZOLE 40 MG TABLET.DR. PO SCH (16:30)
--- NOTE | 2021-02-14 17:58 | PHYS DOC ---
Past Medical History Past Medical History: CVA, Diabetes-Type II, DVT, [place] Additional Past Medical Histor: pancreatitis, hyperlipidemia, PE, substance abuse, HEREDITARY ANGIOEDEMA Past Surgical History: Cholecystectomy, Other Additional Past Surgical Histo: CHEST TUBE INSERTION; PEG TUBE Smoking Status: Current Every Day Smoker Alcohol Use: None Drug Use: None General Adult EDM: Chief Complaint: ALLERGIC REACTION HPI: HPI: 50-year-old male presenting the emergency department today with swelling of the neck and difficulty breathing with a history of angioedema. This all started today. He has a history of this and was admitted many times recently intubated and left AGAINST MEDICAL ADVICE for not receiving opiate therapy in the intensive care unit. Here the patient is breathing comfortably without stridor he does have swelling of his parotid glands and his tonsils. He is not in acute respiratory distress. He reports the swelling is in the inside of his neck. Onset today. Location neck. Duration constant. No alleviating factors. Review of systems negative for chest pain shortness of breath abdominal pain vomiting fevers chills headache. All other review of systems negative. ED course: 50-year-old male presenting with swelling of the neck that started today. On examination the patient is breathing comfortably with swelling pre sent externally and internally but without acute stridor or acute respiratory distress. Patient was given intramuscular epinephrine. He is reportedly allergic to steroids and he reports that this makes his swelling worse so we did not give the Decadron I ordered. We were able to give the intramuscular Benadryl. On reexamination he continues to be breathing comfortably without stridor or any respiratory distress. Given the location of his sensation of swelling we will admit the patient to the intensive care unit. I spoke with Dr. Strauss who accepts patient for admission. While in the emergency department the patient decided to leave AGAINST MEDICAL ADVICE. He understands the risks of disability chronic pain and suffering. He continues to breathe comfortably without any distress at this time Heart Score: C/O Chest Pain: No Risk Factors: Risk Factors: DM, Current or recent (<one month) smoker, HTN, HLP, family his tory of CAD, obesity. Risk Scores: Score 0 - 3: 2.5% MACE over next 6 weeks - Discharge Home Score 4 - 6: 20.3% MACE over next 6 weeks - Admit for Clinical Observation Score 7 - 10: 72.7% MACE over next 6 weeks - Early Invasive Strategies Current Medications: Current Medications Medications (Trade) Dose Ordered Sig/Shane Start Time Stop Time Status Last Admin Dose Admin Dexamethasone Sodium Phosphate (Decadron) 10 mg 1X ONCE 02/14/21 12:00 02/14/21 12:01 DC Diphenhydramine HCl (Benadryl) 50 mg 1X ONCE 02/14/21 12:00 02/14/21 12:01 DC 02/14/21 12:03 50 MG Epinephrine HCl (Adrenalin) 0.3 mg PRN Q5MIN PRN 02/14/21 12:00 02/14/21 12:03 0.3 MG Allergies: Allergies: Allergies Coded Allergies Type Severity Reaction Last Updated Verified iodine Allergy Severe 09/15/19 Yes metoclopramide Allergy Severe 09/15/19 Yes ondansetron Allergy Severe ANAPHYLAXIS 09/15/19 Yes prochlorperazine Allergy Severe 09/16/20 Yes NSAIDS (Non-Steroidal Anti-Inflamma Allergy Intermediate 09/15/19 Yes aspirin Allergy Intermediate 09/15/19 Yes morphine Allergy Intermediate 09/15/19 Yes prednisone Allergy Intermediate 09/15/19 Yes Physical Exam: PE: Constitutional: Well developed, well nourished, no acute distress, non-toxic appearance. [] Not in acute respiratory distress. HENT: Normocephalic, atraumatic, bilateral external ears normal, oropharynx moist, no oral exudates, nose normal. [] The patient's oropharyngeal region has some mild swelling of the tonsils bilaterally. The tonsils are not touching. There is a patent airway without stridor. Eyes: PERRLA, EOMI, conjunctiva normal, no discharge. [] Neck: Normal range of motion, no tenderness, supple, no stridor. Mild swelling of the parotid glands of the jaw but without swelling of the anterior neck. Cardiovascular:Heart rate regular rhythm, no murmur [] Lungs & Thorax: Bilateral breath sounds clear to auscultation [] Abdomen: Bowel sounds normal, soft, no tenderness, no masses, no pulsatile masses. [] Skin: Warm, dry, no erythema, no rash. [] Back: No tenderness, no CVA tenderness. [] Extremities: No tenderness, no cyanosis, no clubbing, ROM intact, no edema. [] Neurologic: Alert and oriented X 3, normal motor function, normal sensory function, no focal deficits noted. [] Psychologic: Affect normal, judgement normal, mood normal. [] Current Patient Data: Labs: Laboratory Tests Test 02/14/21 14:25 Sodium Level 148 mmol/L (136-145) H Potassium Level 3.2 mmol/L (3.5-5.1) L Chloride Level 109 mmol/L (98-107) H Carbon Dioxide Level 28 mmol/L (21-32) Anion Gap 11 (6-14) Blood Urea Nitrogen 11 mg/dL (8-26) Creatinine 0.7 mg/dL (0.7-1.3) Estimated GFR (Cockcroft-Gault) 143.9 BUN/Creatinine Ratio 16 (6-20) Glucose Level 102 mg/dL (70-99) H Calcium Level 8.8 mg/dL (8.5-10.1) Iron Level 23 ug/dL (65-175) L Total Iron Binding Capacity 354 ug/dL (250-450) Iron Saturation 6 % (15-34) L Total Bilirubin 0.3 mg/dL (0.2-1.0) Aspartate Amino Transferase (AST) 17 U/L (15-37) Alanine Aminotransferase (ALT) 12 U/L (16-63) L Alkaline Phosphatase 104 U/L (46-116) Troponin I Quantitative < 0.017 ng/mL (0.000-0.055) Total Protein 6.3 g/dL (6.4-8.2) L Albumin 3.3 g/dL (3.4-5.0) L Albumin/Globulin Ratio 1.1 (1.0-1.7) Thyroid Stimulating Hormone (TSH) 0.141 uIU/mL (0.358-3.74) L Laboratory Tests 02/14/21 14:25 Vital Signs: Vital Signs Date Time Temp Pulse Resp B/P (MAP) Pulse Ox O2 Delivery O2 Flow Rate FiO2 02/14/21 14:53 84 21 161/93 (115) 97 Room Air 02/14/21 11:53 99.6 99.6 EKG: EKG: [] Radiology/Procedures: Radiology/Procedures: [] Course & Med Decision Making: Course & Med Decision Making Pertinent Labs and Imaging studies reviewed. (See chart for details) [] Dragon Disclaimer: Dragon Disclaimer: This electronic medical record was generated, in whole or in part, using a voice recognition dictation system. Departure Departure Impression: Primary Impression: Left against medical advice Additional Impressions: Acute anaphylaxis Angioedema Disposition: LEFT AGAINST MEDICAL ADVICE Condition: GOOD Referrals: NO PCP (PCP) Critical Care Time Critical care time was 45 minutes exclusive of procedures. BABAK IBARRA MD February 14, 2021 17:58
[2021-02-14] MEDS ORDERED: DEXAMETHASONE SOD PHOS 4 MG/ML VIAL IVP SCH (18:00)
[2021-02-14] MEDS ORDERED: oxyCODONE ER 10 MG TAB.ER.12H PO SCH (21:00)
[2021-02-14] MEDS ORDERED: FAMOTIDINE 20 MG/2 ML VIAL IVP SCH (21:00)
[2021-02-14] MEDS ORDERED: APIXABAN 5 MG TABLET. PO SCH (21:00)
[2021-02-14] MEDS ORDERED: SENNOSIDES/DOCUSATE 8.6/50MG TABLET. PO SCH (21:00)
[2021-02-14] MEDS ORDERED: DOCUSATE SODIUM 100 MG CAPSULE. PO SCH (21:00)
[2021-02-15] MEDS ORDERED: ELECTROLYTE (ICU) PROTOCOL. MC SCH (09:00)
== END 2021-02-14 15:10 | disposition left against medical advice (07) | DRG 642 ==
LOC: ER 11:46 → ED HOLD 12:00
PROVIDERS: ADMIT Family Medicine; ATTEND Family Medicine
DX: D84.1 Defects in the complement system (principal); D68.51 Activated protein C resistance; E11.9 Type 2 diabetes mellitus without complications; E78.5 Hyperlipidemia, unspecified; I10 Essential (primary) hypertension; K21.9 Gastro-esophageal reflux disease without esophagitis; Z79.01 Long term (current) use of anticoagulants; Z82.49 Family history of ischemic heart disease and other diseases of the circulatory system; Z86.711 Personal history of pulmonary embolism; Z86.73 Personal history of transient ischemic attack (TIA), and cerebral infarction without residual deficits; Z87.891 Personal history of nicotine dependence; Z88.8 Allergy status to other drugs, medicaments and biological substances; Z91.19 Patient's noncompliance with other medical treatment and regimen; Z86.718 Personal history of other venous thrombosis and embolism; I25.2 Old myocardial infarction; Z90.49 Acquired absence of other specified parts of digestive tract; D64.9 Anemia, unspecified; Z53.29 Procedure and treatment not carried out because of patient's decision for other reasons
CPT/HCPCS: 36415; 80053; 83540; 83550; 84443; 84484; 96372; J0171; J1200; 99291-25

== ENCOUNTER 2021-08-07 10:42 | Inpatient (IN) | payer MEDICAID ==
[~2021-08-07] VITALS: Ht 182.9 cm; Wt 84.2 kg
[2021-08-07] MEDS ORDERED: EPINEPHrine 1 MG/ML VIAL SQ ONE (11:15)
[2021-08-07] MEDS ORDERED: diphenhydrAMINE 50 MG/ML VIAL IVP ONE (11:15)
[2021-08-07] MEDS ORDERED: FAMOTIDINE 20 MG/2 ML VIAL IVP ONE (11:15)
--- NOTE | 2021-08-07 11:19 | PHYS DOC ---
Past Medical History Past Medical History: CVA, Diabetes-Type II, DVT, UT Additional Past Medical Histor: pancreatitis, hyperlipidemia, PE, substance abuse, HEREDITARY ANGIOEDEMA Past Surgical History: Cholecystectomy, Other Additional Past Surgical Histo: CHEST TUBE INSERTION; PEG TUBE Smoking Status: Current Every Day Smoker Alcohol Use: None Drug Use: None General Adult EDM: Chief Complaint: SHORTNESS OF BREATH HPI: HPI: Patient is a 51-year-old male presenting for shortness of breath. This is an acute on chronic issue for him. He has a complex history of hereditary angioedema, who has required multiple intubations in the past, narcotic dependence, CVA, history of factor V Leiden mutation for which he is on anticoagulation. Reports he has been at baseline health but 2 days ago started noticing increased fullness in bilateral submandibular areas in addition to abdomen and groin. Symptoms progressively worsened and reports he had difficulties with p.o. intake yesterday. Reports he woke up today and had issues speaking and so, he administered 0.3 mg IM epinephrine. Reports this helped his symptoms and he began to speak again. Nonetheless, his symptoms did not significantly improve prompting him to come in for evaluation. On arrival, continues to complain of bilateral neck, abdomen and groin swelling. Denies any significant changes in baseline health, sick contacts or recent travel. Admits he is amenable for elective tracheostomy at this time. Review of Systems: Review of Systems: Fourteen body systems of review of systems have been reviewed. See HPI for pertinent positives and negative responses, other newman all other systems are negative, non-pertinent or non-contributory Heart Score: C/O Chest Pain: No Risk Factors: Risk Factors: DM, Current or recent (<one month) smoker, HTN, HLP, family history of CAD, obesity. Risk Scores: Score 0 - 3: 2.5% MACE over next 6 weeks - Discharge Home Score 4 - 6: 20.3% MACE over next 6 weeks - Admit for Clinical Observation Score 7 - 10: 72.7% MACE over next 6 weeks - Early Invasive Strategies Current Medications: Current Medications Medications (Trade) Dose Ordered Sig/Shane Start Time Stop Time Status Last Admin Dose Admin Diphenhydramine HCl (Benadryl) 50 mg 1X ONCE 08/07/21 11:15 08/07/21 11:16 UNV Epinephrine HCl (Adrenalin) 0.3 mg 1X ONCE 08/07/21 11:15 08/07/21 11:16 UNV Famotidine (Pepcid Vial) 20 mg 1X ONCE 08/07/21 11:15 08/07/21 11:16 UNV Allergies: Allergies: Allergies Coded Allergies Type Severity Reaction Last Updated Verified iodine Allergy Severe 09/15/19 Yes metoclopramide Allergy Severe 09/15/19 Yes ondansetron Allergy Severe ANAPHYLAXIS 09/15/19 Yes prochlorperazine Allergy Severe 09/16/20 Yes NSAIDS (Non-Steroidal Anti-Inflamma Allergy Intermediate 09/15/19 Yes aspirin Allergy Intermediate 09/15/19 Yes morphine Allergy Intermediate 09/15/19 Yes prednisone Allergy Intermediate 09/15/19 Yes Physical Exam: PE: Constitutional: Well developed, well nourished, age-appropriate, appears in moderate respiratory distress speaking in few word sentences only HENT: Normocephalic, atraumatic, bilateral external ears normal, oropharynx moist, no oral exudates, nose normal. Bilateral submandibular space engorged without any obvious oropharyngeal involvement. No phonation changes. Patient tolerating secretions well. Eyes: PERRLA, EOMI, conjunctiva normal, no discharge. Neck: Normal range of motion, no tenderness, supple, no stridor. Cardiovascular: Heart rate regular, sinus rhythm, no murmurs rubs or gallops Lungs & Thorax: Tachypneic but no obvious respiratory failure. Accessory muscle use noted in bilateral neck and abdomen, clear to auscultation bilaterally Abdomen: Bowel sounds normal, soft, no tenderness, no masses, no pulsatile masses. Nonsurgical abdomen, no peritoneal signs Skin: Warm, dry, no erythema, no rash. Back: No tenderness, no CVA tenderness. Extremities: No tenderness, no cyanosis, no clubbing, ROM intact, no edema. Neurologic: Alert and oriented X 3, grossly normal motor & sensory function, no focal deficits noted. Psychologic: Anxious affect and mood Current Patient Data: Vital Signs: Vital Signs Date Time Temp Pulse Resp B/P (MAP) Pulse Ox O2 Delivery O2 Flow Rate FiO2 08/07/21 10:53 98.3 121 22 176/108 (130) 98 Room Air 98.3 Vital Signs Date Time Temp Pulse Resp B/P (MAP) Pulse Ox O2 Delivery O2 Flow Rate FiO2 08/07/21 10:53 98.3 121 22 176/108 (130) 98 Room Air 98.3 EKG: EKG: EKG ordered and interpreted by myself 1111 hrs. as sinus rhythm at 99 bpm, u nremarkable intervals, no axis deviation, no acute ischemic findings, no STEMI Radiology/Procedures: Radiology/Procedures: EXAM: Chest, single view. HISTORY: Shortness of breath. COMPARISON: 02/02/2021 FINDINGS: A frontal view of the chest is obtained. There is no infiltrate, pleural effusion or pneumothorax. The heart is normal in size. IMPRESSION: No acute pulmonary finding. Electronically signed by: Amparo Martinez MD (08/07/2021 11:46 AM) [id number] Course & Med Decision Making: Course & Med Decision Making Airway patent, breathing labored, vitals obtained and grossly nonconcerning There was initial concern as patient is well-known to our department for need for intubation, airway is patent and he is oxygenating and ventilating well on arrival so this was deferred Patient has longstanding history of poor peripheral access and difficulties were had trying to obtain peripheral access. I recommended placement of central line or IO but patient deferred, requesting PICC/midline As such, patient who administered IM epinephrine prior to arrival was administered IM Benadryl. Steroids were deferred due to patient's history of reported allergic reaction to steroids? Patient monitored closely in ER with continued improvement in overall airway. Patient initially presented speaking in few word sentences but was eventually a ble to have full sentences and aggressively asking for pain medication Traveling PICC/midline team contacted who were ultimately unable to obtain definitive access. 24-gauge peripheral IV started on the left anterior chest I disclosed with patient again who had full capacity need for definitive IV access, continues to decline IO and/or central line placement at this time. I discussed with patient history of hereditary angioedema, he has received FFP for his condition in the past. He has refused elective tracheostomies in the past. He is never tried new injectable therapies for this condition Ultimately I discussed case at length with hospitalist who accepted patient care in ICU setting for continued airway monitoring and inpatient medical management of patient's improved hereditary angioedema Hospitalist is aware of patient's refusal of central line/IO placement at this time. Patient does understand if there is an acute worsening in condition that due to medical necessity we will attempt these procedures and complies Critical Care Time This patient required critical care. Due to the fact that the patient required a significant amount of one on one physician - patient contact time, ordering and review of studies, arranging urgent treatment with development of a management plan, evaluation of patients response to treatment with frequent reassessments, and discussions with other providers this patient required 30 minutes of critical care time. Critical care time was indicated due to the inherent instability and/or potential for instability in this patient. The critical care time that is allocated to this patient is above and beyond any time spent on any other billable procedures performed on this patient. Marguerite Disclaimer: Marguerite Disclaimer: This electronic medical record was generated, in whole or in part, using a voice recognition dictation system. Departure Departure Impression: Primary Impression: Hereditary angioedema Additional Impression: Cervical lymphadenopathy Disposition: ADMITTED INPATIENT Condition: STABLE Referrals: NO PCP (PCP) CELAI HATFIELD DO Aug 07, 2021 11:19
--- NOTE | 2021-08-07 11:22 | EKG ---
[facility] [address] [place] [address] Test Date: 2021-08-07 Test Time: 11:02:42 Pat Name: JAY WHITE Department: Room: Gender: M Club Director: : 1970 Requested By: CELIA HATFIELD Order Number: [id number] Reading MD: Shane Ely Measurements Intervals [place] Rate: 99 P: 113 HI: 154 QRS: 51 QRSD: 88 T: 64 QT: 350 QTc: 455 Interpretive Statements SINUS RHYTHM Electronically Signed On 08-08-2021 13:29:20 CDT by Shane Ely
[2021-08-07] MEDS ORDERED: EPINEPHrine 1 MG/ML VIAL ONE (11:38)
--- NOTE | 2021-08-07 11:48 | RAD ---
EXAM: Chest, single view. HISTORY: Shortness of breath. COMPARISON: 02/02/2021 FINDINGS: A frontal view of the chest is obtained. There is no infiltrate, pleural effusion or pneumo thorax. The heart is normal in size. IMPRESSION: No acute pulmonary finding. Electronically signed by: Amparo Martinez MD (08/07/2021 11:46 AM) [id number]
[2021-08-07] MEDS ORDERED: diphenhydrAMINE 50 MG/ML VIAL IM ONE (12:15)
[2021-08-07] MEDS ORDERED: fentaNYL PF VIAL 100 MCG/2 ML VIAL IVP ONE (13:00)
--- NOTE | 2021-08-07 13:03 | PDOC1 ---
History and Physical Date of Admission Date of Admission DATE: 08/07/21 TIME: 13:03 Identification/Chief Complaint Chief Complaint Throat Swelling Source Source: Patient History of Present Illness History of Present Illness The patient is a 50-year-old male who has a history of sarcoidosis, hereditary angioedema, DVT/PE and Factor V leiden mutation with polysubstance abuse and multiple intubations for hereditary angioedema who comes to ED c/o bilateral jaw, abdominal, and scrotal pain and throat swelling. He awoke having difficulty speaking and took IM epinephrine at home 0.3mg and had some improvement but has neck pain abdominal pain scrotal pain worsened he felt his throat closing came to the ED for further care. EKG ordered and interpreted by myself 1111 hrs. as sinus rhythm at 99 bpm, unremarkable intervals, no axis deviation, no acute ischemic findings, No labs available. Chest x-ray no infiltrates Given benadryl and fentanyl IV with improvement in his symptoms. Notes he is amenable to elective traceostomy at this time. Admitted to ICU for further care. Past Medical History Pulmonary: Bronchitis GI: No pertinent hx Heme/Onc: Anemia NOS, Other Past Surgical History Past Surgical History: Other Family History Family History: No Significant, Hypertension Social History Smoke: 1 pack per day ALCOHOL: none Drugs: Marijuana Current Problem List Problem List Problems Medical Problems: (1) Hereditary angioedema Status: Acute Current Medications Current Medications Current Medications Famotidine (Pepcid Vial) 20 mg 1X ONCE IVP Last administered on 08/07/21at 12:25; Start 08/07/21 at 11:15; Stop 08/07/21 at 11:23; Status DC Diphenhydramine HCl (Benadryl) 50 mg 1X ONCE IVP ; Start 08/07/21 at 11:15; Stop 08/07/21 at 11:30; Status DC Epinephrine HCl (Adrenalin) 0.3 mg 1X ONCE SQ ; Start 08/07/21 at 11:15; Stop 08/07/21 at 11:30; Status DC Diphenhydramine HCl (Benadryl) 50 mg 1X ONCE IM Last administered on 08/07/21at 11:33; Start 08/07/21 at 12:15; Stop 08/07/21 at 12:16; Status DC Epinephrine HCl (Adrenalin) 1 mg STK-MED ONCE .ROUTE ; Start 08/07/21 at 11:38; Stop 08/07/21 at 11:38; Status DC Fentanyl Citrate (Fentanyl 2ml Vial) 50 mcg 1X ONCE IVP Last administered on 08/07/21at 12:58; Start 08/07/21 at 13:00; Stop 08/07/21 at 13:01; Status DC Active Scripts Active Reported Promethazine Hcl 25 Mg Tablet 25 Mg PO PRN BID PRN Percocet 10-325 Mg Tablet (Oxycodone/Acetaminophen) 1 Each Tablet 2 Tab PO PRN Q4-6HRS PRN Oxycontin (Oxycodone HCl) 10 Mg Tab.er.12h 10 Mg PO BID Benadryl (Diphenhydramine Hcl) 25 Mg Capsule 50 Mg PO Q6HRS Eliquis (Apixaban) 5 Mg Tablet 5 Mg PO DAILY Protonix (Pantoprazole Sodium) 40 Mg Tablet.dr 40 Mg PO DAILYAC Epipen (Epinephrine) 0.3 Mg/0.3 Ml Auto.injct 0.3 Mg IM UD Allergies Allergies: Coded Allergies: iodine (Verified Allergy, Severe, 09/15/19) metoclopramide (Verified Allergy, Severe, 09/15/19) ondansetron (Verified Allergy, Severe, ANAPHYLAXIS, 09/15/19) prochlorperazine (Verified Allergy, Severe, 09/16/20) NSAIDS (Non-Steroidal Anti-Inflamma (Verified Allergy, Intermediate, 09/15/19) aspirin (Verified Allergy, Intermediate, 09/15/19) morphine (Verified Allergy, Intermediate, 09/15/19) prednisone (Verified Allergy, Intermediate, 09/15/19) ROS General: YES: Fatigue, Malaise; No: Chills, Night Sweats, Appetite, Other PSYCHOLOGICAL ROS: YES: Anxiety; No: Behavioral Disorder, Concentration difficultie, Decreased libido, Depression, Disorientation, Hallucinations, Hostility, Irritablity, Memory difficulties, Mood Swings, Obsessive thoughts, Physical abuse, Sexual abuse, Sl eep disturbances, Suicidal ideation, Other Eyes: No Blurry vision, No Decreased vision, No Double vision, No Dry eyes, No Excessive tearing, No Eye Pain, No Itchy Eyes, No Loss of vision, No Photophobia, No Scotomata, No Uses contacts, No Uses glasses, No Other HEENT: YES: Sore Throat; No: Heacaches, Visual Changes, Hearing change, Nasal congestion, Nasal discharge, Oral lesions, Sinus pain, Epistaxis, Sneezing, Snoring, Tinnitus, Vertigo, Vocal changes, Other ALLERGY AND IMMUNOLOGY: No: Hives, Insect Bite Sensitivity, Itchy/Watery Eyes, Nasal Congestion, Post Nasal Drip, Seasonal Allergies, Other Hematological and Lymphatic: YES: Blood Clots; No: Bleeding Problems, Blood Transfusions, Brusing, Night Sweats, Pallor, Swollen Lymph Nodes, Other ENDOCRINE: No: Breast Changes, Galactorrhea, Hair Pattern Changes, Hot Flashes, Malaise/lethargy, Mood Swings, Palpitations, Polydipsia/polyuria, Skin Changes, Temperature Intolerance, Unexpected Weight Changes, Other Breast: No New/Changing Breast Lumps, No Nipple changes, No Nipple discharge, No Other Respiratory: YES: Shortness of breath, Stridor; No: Cough, Hemoptysis, Orthopnea, Pleuritic Pain, SOB with excertion, Sputum Changes, Tachypnea, Wheezing, Other Cardiovascular: No Chest Pain, No Palpitations, No Orthopnea, No Paroxysmal Noc. Dyspnea, No Edema, No Lt Headedness, No Other Gastrointestinal: Yes Nausea, Yes Abdominal Pain; No Vomiting, No Diarrhea, No Constipation, No Melena, No Hematochezia, No Other Genitourinary: No Dysuria, No Frequency, No Incontinence, No Hematuria, No Retention, No Discharge, No Urgency, No Pain, No Flank Pain, No Other, No , No , No , No , No , No , No Musculoskeletal: No Gait Disturbance, No Joint Pain, No Joint Stiffness, No Joint Swelling, No Muscle Pain, No Muscular Weakness, No Pain In:, No Swelling In:, No Other Neurological: No Behavorial Changes, No Bowel/Bladder ControlChng, No Confusion, No Dizziness, No Gait Disturbance, No Headaches, No Impaired Coord/balance, No Memory Loss, No Numbness/Tingling, No Seizures, No Speech Problems, No Tremors, No Visual Changes, No Weakness, No Other Skin: No Dry Skin, No Eczema, No Hair Changes, No Lumps, No Mole Changes, No Mottling, No Nail Changes, No Pruritus, No Rash, No Skin Lesion Changes, No Other, No Acne Physical Exam General: Alert, Oriented X3, Cooperative, moderate distress HEENT: Atraumatic, PERRLA, EOMI, Mucous membr. moist/pink, Other (bilateral cervical lymphadenopathy) Lungs: Clear to auscultation, Normal air movement Heart: S1S2, RRR, no thrills, no rubs, no gallops, no murmurs Abdomen: Normal bowel sounds, Soft, No hepatosplenomegaly, No masses, Other (Bilateral LQ tenderness) Rectal Exam: not examined Extremities: No clubbing, No cyanosis, No edema, Normal pulses, No tenderness/swelling Skin: No rashes, No breakdown, No significant lesion Neuro: Normal gait, Normal speech, Strength at 5/5 X4 ext, Normal tone, Sensation intact, Cranial nerves 3-12 NL, Reflexes 2+ Psych/Mental Status: Mental status NL, Mood NL Vitals Vitals Vital Signs Date Time Temp Pulse Resp B/P (MAP) Pulse Ox O2 Delivery O2 Flow Rate FiO2 08/07/21 12:58 24 98 Room Air 08/07/21 10:53 98.3 121 176/108 (130) 98.3 VTE Prophylaxis Ordered VTE Prophylaxis Devices: No VTE Pharmacological Prophylaxi: Yes Assessment/Plan Assessment/Plan A/P: Hereditary angioedema with acute throat swelling - He has declined to have a tracheostomy in the past. IV decadron, benadryl. Admit to ICU, consult general surgery, pulmonology Intractable abdominal pain - IV fentanyl ordered for angioedema related pain History of polysubstance abuse History of deep venous thrombosis and pulmonary embolism in the past and HX factor V Leiden mutation for which he is on ELIQUIS Narcotic dependence hx HX CVA, Diabetes-Type II, FEN - NPO PPX - eliquis, may need to change to lovenox FULL CODE Dispo - ICU cc time 43 minutes Justifications for Admission Other Justification ANGIOEDEMA HATTIE PETERSON MD Aug 07, 2021 13:03
[2021-08-07] MEDS ORDERED: fentaNYL PF VIAL 100 MCG/2 ML VIAL IVP PRN (14:30)
[2021-08-07] MEDS ORDERED: diphenhydrAMINE 50 MG/ML VIAL IVP PRN (14:30)
[2021-08-07] MEDS ORDERED: DEXAMETHASONE SOD PHOS 4 MG/ML VIAL IVP ONE ×2 (16:15→20:00)
[2021-08-07 17:20] VITALS: BP 158/98
[2021-08-07] MEDS ORDERED: ACETAMINOPHEN 325 MG TABLET. PO PRN (17:45)
[2021-08-07] MEDS: oxyCODONE/APAP 10/325 1 TAB TABLET PO PRN (18:16)
[2021-08-07] MEDS: PANTOPRAZOLE 40 MG TABLET.DR. PO SCH (18:16)
[2021-08-07 19:00] VITALS: BP 139/99
--- NOTE | 2021-08-07 19:51 | NUR ---
Pt asking for pain med. Claimed the med given earlier wasn't working. Pt claimed that he was told earlier if it's not working that the doctor will be notified. Pt was informed that anayeli morning RN already talked to the doctor. shelly Baltazar RN informed. Pt also want to talk to nursing fur dressing supervisor. Nursing fur dressing supervisor notified and will see patient after report. Afterwards, patient called and wanted to talk to hemodialysis charge nurse. PEDRO Baltazar talked to the patient. Dr. Corbin was paged and shelly Baltazar RN talked to Dr. Corbin.
[2021-08-07 20:00] VITALS: BP 139/99
--- NOTE | 2021-08-07 20:05 | NUR ---
Patient requesting to speak to dry pan charger; upon arrival in room patient appears very agitated and anxious and is shaking. Patient states he is having more pain and the Percocet did not relieve pain in lower abdomen/pelvic/scrotum area. Patient states he was told by physician IV pain medications and Benadryl would be ordered/administered. Patient stated, "You all are making me feel like I am drug seeking and I am not! I am in a lot of pain! I have multiple issues that cause pain--Sarcoidosis and Angioedema. I had a deal that I would stay for trach if IV pain medications and Benadryl were ordered!" Explained to patient I was not aware of this "deal" but I would call Dr Corbin (PCP) and notify him of above and ask for other options. Dr Corbin paged, returned page and notified of above. Orders received for Fentanyl 50MCG [id number] for a total of 5 doses to be administered after Percocet for continued/breakthrough pain, Benadryl 50MG IVP PRN Q6HRS and Decadron 4MG IVP x1. Patient notified of orders and POC; specifically asked patient if he was agreeable to Percocet followed 30min by Fentanyl IVP for continued pain, Fentanyl is only for 5 doses and Benadryl available IV Q6HRS. Patient verbalized understanding and is agreeable to POC. Patient did refuse Decadron stating, "it worsens Angioedema." Educated patient that Decadron was not a NSAID but a steroid--patient continued to refuse. See orders.
[2021-08-07] MEDS: diphenhydrAMINE 50 MG/ML VIAL IVP PRN (20:39)
[2021-08-07] MEDS: fentaNYL PF VIAL 100 MCG/2 ML VIAL IVP PRN (20:43)
[2021-08-07 21:00] VITALS: BP 142/100
[2021-08-07 22:00] VITALS: BP 133/79
[2021-08-07 23:00] VITALS: BP 141/93
[2021-08-07 23:30] LABS: BARBITURATES NEG (NEG); BENZODIAZEPINES NEG (NEG); CANNABINOIDS POS (NEG); COCAINE NEG (NEG); METHADONE NEG (NEG); OPIATES POS (NEG); PHENCYCLIDINE NEG (NEG)
[2021-08-07 23:31] LABS: AMPHETAMINE/METHAMPHETAMINE NEG (NEG)
[2021-08-08] VITALS (13 sets, daily range): BP systolic 120–145; BP diastolic 77–96
[2021-08-08] MEDS: oxyCODONE/APAP 10/325 1 TAB TABLET PO PRN ×4 (00:22→20:12)
[2021-08-08] MEDS: fentaNYL PF VIAL 100 MCG/2 ML VIAL IVP PRN ×8 (01:06→23:17)
[2021-08-08] MEDS: diphenhydrAMINE 50 MG/ML VIAL IVP PRN ×4 (04:08→23:18)
[2021-08-08] MEDS: PANTOPRAZOLE 40 MG TABLET.DR. PO SCH (06:24)
--- NOTE | 2021-08-08 07:09 | PDOC ---
[employer] PROGRESS NOTE Date of Service DOS: DATE: 08/08/21 TIME: 07:02 Chief Complaint Chief Complaint Hereditary angioedema with acute throat swelling - He has declined to have a tracheostomy in the past. IV decadron, benadryl. Admit to ICU, consult general surgery, pulmonology Intractable abdominal pain - IV fentanyl ordered for angioedema related pain History of polysubstance abuse History of deep venous thrombosis and pulmonary embolism in the past and HX factor V Leiden mutation for which he is on ELIQUIS Narcotic dependence hx HX CVA, Diabetes-Type II, FEN - NPO PPX - eliquis, may need to change to lovenox FULL CODE Dispo - ICU cc time 43 minutes History of Present Illness History of Present Illness The patient is a 50-year-old male who has a history of sarcoidosis, hereditary angioedema, DVT/PE and Factor V leiden mutation with polysubstance abuse and multiple intubations for hereditary angioedema who comes to ED c/o bilateral jaw, abdominal, and scrotal pain and throat swelling. He awoke having difficulty speaking and took IM epinephrine at home 0.3mg and had some improvement but has neck pain abdominal pain scrotal pain worsened he felt his throat closing came to the ED for further care. EKG ordered and interpreted by myself 1111 hrs. as sinus rhythm at 99 bpm, unremarkable intervals, no axis deviation, no acute ischemic findings, No labs available. Chest x-ray no infiltrates Given benadryl and fentanyl IV with improvement in his symptoms. Notes he is amenable to elective traceostomy at this time. Admitted to ICU for further care. 08/08: Patient afebrile, currently breathing on room air. Multiple admissions for angioedema, and history of leaving AGAINST MEDICAL ADVICE. He is agreeable to elective trach at this time. Discussed with general surgery, this would not be until Wednesday. The patient and I have concerned that he would leave AMA if trach is not performed on Wednesday. We will keep him comfortable with as needed fentanyl until such time trach can be placed. Can transfer out of ICU to med/surg. Vitals/I&O Vitals/I&O: Vital Signs Date Time Temp Pulse Resp B/P (MAP) Pulse Ox O2 Delivery O2 Flow Rate FiO2 08/08/21 06:25 16 95 Room Air 08/08/21 06:00 67 140/86 (104) 08/08/21 03:00 98.0 98.0 I & O 08/07/21 08/07/21 08/08/21 15:00 23:00 07:00 Intake Total 120 ml 270 ml Output Total 100 ml 100 ml Balance 20 ml 170 ml Physical Exam General: Alert, Oriented X3, Cooperative, No acute distress Heart: Regular rate Lungs: Clear Abdomen: Normal bowel sounds, Soft, No hepatosplenomegaly, No masses, Other (Bilateral LQ tenderness) Extremities: No clubbing, No cyanosis, No edema, Normal pulses, No tenderness/swelling Skin: No rashes, No breakdown, No significant lesion Labs Labs: Laboratory Tests Test 08/07/21 23:15 Urine Opiates Screen Pos (NEG) Urine Methadone Screen Neg (NEG) Urine Barbiturates Neg (NEG) Urine Phencyclidine Screen Neg (NEG) Urine Amphetamine/Methamphetamine Neg (NEG) Urine Benzodiazepines Screen Neg (NEG) Urine Cocaine Screen Neg (NEG) Urine Cannabinoids Screen Pos (NEG) Urine Ethyl Alcohol Neg (NEG) Assessment and Plan Assessmemt and Plan Problems Medical Problems: (1) Hereditary angioedema Status: Acute Comment Review of Relevant I have reviewed the following items wandy (where applicable) has been applied. Medications: Current Medications Medications (Trade) Dose Ordered Sig/Shane Route PRN Reason Start Time Stop Time Status Last Admin Dose Admin Famotidine (Pepcid Vial) 20 mg 1X ONCE IVP 08/07/21 11:15 08/07/21 11:23 DC 08/07/21 12:25 Diphenhydramine HCl (Benadryl) 50 mg 1X ONCE IM 08/07/21 12:15 08/07/21 12:16 DC 08/07/21 11:33 Fentanyl Citrate (Fentanyl 2ml Vial) 50 mcg 1X ONCE IVP 08/07/21 13:00 08/07/21 13:01 DC 08/07/21 12:58 Diphenhydramine HCl (Benadryl) 50 mg PRN Q6HRS PRN IVP allergic reaction 08/07/21 14:30 08/07/21 17:53 DC 08/07/21 15:17 Fentanyl Citrate (Fentanyl 2ml Vial) 50 mcg PRN Q3HRS PRN IVP SEVERE PAIN 7-10 08/07/21 14:30 08/07/21 17:53 DC 08/07/21 15:20 Pantoprazole Sodium (Protonix) 40 mg DAILYAC PO 08/07/21 16:30 08/08/21 06:24 Oxycodone/ Acetaminophen (Percocet ) 2 tab PRN Q6HRS PRN PO PAIN 08/07/21 18:00 08/08/21 06:25 Fentanyl Citrate (Fentanyl 2ml Vial) 50 mcg PRN Q3HRS PRN IVP SEVERE PAIN 7-10 08/07/21 20:00 08/08/21 04:08 Diphenhydramine HCl (Benadryl) 50 mg PRN Q6HRS PRN IVP INFLAMMATION 08/07/21 20:00 08/08/21 04:08 Justifications for Admission Other Justification ANGIOEDEMA LYNNETTE SWANSON MD Aug 08, 2021 07:09
[2021-08-08] MEDS: oxyCODONE ER 10 MG TAB.ER.12H PO SCH ×2 (10:12→23:22)
--- NOTE | 2021-08-08 10:39 | PDOC ---
PULMONARY PROGRESS NOTES DATE: 08/08/21 TIME: 10:38 Vitals Vital Signs Date Time Temp Pulse Resp B/P (MAP) Pulse Ox O2 Delivery O2 Flow Rate FiO2 08/08/21 10:12 97 Room Air 08/08/21 09:00 60 12 131/78 (95) 08/08/21 03:00 98.0 98.0 General: Alert, No acute distress Lungs: Clear Cardiovascular: S1, S2 Abdomen: Soft, Non-tender Extremities: No Edema Labs Laboratory Tests Test 08/07/21 23:15 Urine Opiates Screen Pos (NEG) Urine Methadone Screen Neg (NEG) Urine Barbiturates Neg (NEG) Urine Phencyclidine Screen Neg (NEG) Urine Amphetamine/Methamphetamine Neg (NEG) Urine Benzodiazepines Screen Neg (NEG) Urine Cocaine Screen Neg (NEG) Urine Cannabinoids Screen Pos (NEG) Urine Ethyl Alcohol Neg (NEG) Laboratory Tests Test 08/07/21 23:15 Urine Opiates Screen Pos (NEG) Urine Methadone Screen Neg (NEG) Urine Barbiturates Neg (NEG) Urine Phencyclidine Screen Neg (NEG) Urine Amphetamine/Methamphetamine Neg (NEG) Urine Benzodiazepines Screen Neg (NEG) Urine Cocaine Screen Neg (NEG) Urine Cannabinoids Screen Pos (NEG) Urine Ethyl Alcohol Neg (NEG) Medications Active Scripts Medications Dose Route/Sig Max Daily Dose Days Date Category Promethazine Hcl 25 Mg Tablet 25 Mg PO PRN BID PRN 09/16/20 Reported Percocet 10-325 Mg Tablet (Oxycodone/Acetaminophen) 1 Each Tablet 2 Tab PO PRN Q4-6HRS PRN 09/13/19 Reported Oxycontin (Oxycodone HCl) 10 Mg Tab.er.12h 10 Mg PO BID 09/13/19 Reported Benadryl (Diphenhydramine Hcl) 25 Mg Capsule 50 Mg PO Q6HRS 09/13/19 Reported Eliquis (Apixaban) 5 Mg Tablet 5 Mg PO DAILY 09/13/19 Reported Protonix (Pantoprazole Sodium) 40 Mg Tablet.dr 40 Mg PO DAILYAC 09/13/19 Reported Epipen (Epinephrine) 0.3 Mg/0.3 Ml Auto.injct 0.3 Mg IM UD 09/13/19 Reported Impression . Full consult dictated Progressive dyspnea multifactorial History of hereditary angioedema, History of DVT PE MICHELLE DEVLIN MD Aug 08, 2021 10:39
--- NOTE | 2021-08-08 11:16 | CONS ---
DATE OF CONSULTATION: 08/08/2021 ATTENDING PHYSICIAN: Elmo Corbin MD REASON FOR CONSULTATION: The patient is seen in Pulmonary consultation at the request of Dr. Corbin for increasing shortness of breath. HISTORY OF PRESENT ILLNESS: The patient is a 51-year-old with a history of a hereditary angioedema. Presented with a feeling that his throat was swelling up. The patient has had multiple episodes of hereditary angioedema. He has been intubated multiple times. He presented to the Emergency Room for further evaluation. He is currently in the intensive care unit on room air. He feels better. Since yesterday, the patient has been treated with steroids and antihistamine. He is not more short of breath. He does have some discomfort in the back of his throat. PAST MEDICAL HISTORY: Remarkable for the hereditary angioedema DVT, PE, factor V mutation, status post IVC filter placement. There is also a history of polysubstance use, bronchitis, COPD. PAST SURGICAL HISTORY: Status post IVC filter placement. REVIEW OF SYSTEMS: As indicated above, otherwise other systems were reviewed and negative. PAST SURGICAL HISTORY: He has had intubation, chest tube insertion, previous PEG. CURRENT MEDICATIONS: List was reviewed. SOCIAL HISTORY: He denies any tobacco. PHYSICAL EXAMINATION: GENERAL: The patient was in the intensive care unit and no respiratory distress was noted, able to complete full sentences, no stridor, currently on room air saturation 94-97%. HEENT: Eyes: The sclerae were nonicteric. NECK: No JVD. No subcutaneous emphysema. No audible wheezing. No stridor. CHEST: Full expansion. LUNGS: Adequate flow with no wheezes, rales or rhonchi. CARDIOVASCULAR: Regular rate and rhythm with S1 and S2, no S3. ABDOMEN: Soft. EXTREMITIES: No clubbing or cyanosis. No pitting edema. LABORATORY DATA: Urine drug screen was positive for opiates and cannabinoids. DIAGNOSTIC DATA: Chest x-ray: Reviewed. No acute cardiopulmonary process. IMPRESSION: 1. Progressive dyspnea, multifactorial. 2. Hereditary angioedema. 3. History of deep venous thrombosis and pulmonary embolism, factor V mutation, status post inferior vena cava filter placement. 4. Polysubstance use. PLAN: As indicated above, the patient presented to the Emergency Department with feeling that his throat was swelling, he was given IV steroids, IV antihistamine. He now feels better. On exam, no evidence of respiratory distress, no stridor, no audible wheezing, continue current support. NILSA DR: Evelyn TID: [id number]
--- NOTE | 2021-08-08 14:10 | NUR ---
Patient transferred to 5th floor at 1345 with patient belongings. Report given to PEDRO Plascencia. No complaints at this time from patient.
--- NOTE | 2021-08-08 14:56 | PDOC ---
EMMIE FORRESTER KILN PLACER 08/08/21 1456: SURGICAL PROGRESS NOTE DATE: 08/08/21 TIME: 14:55 Subjective chart reviewed, hx of angioedema, have discussed trach in past, left AMA will tentatively work to plan trach early next week Vital Signs Vital Signs Date Time Temp Pulse Resp B/P (MAP) Pulse Ox O2 Delivery O2 Flow Rate FiO2 08/08/21 13:27 99 Room Air 08/08/21 11:00 98.2 68 17 140/81 (100) 98.2 I&O Intake and Output 08/08/21 07:00 Intake Total 390 ml Output Total 200 ml Balance 190 ml Intake Oral 390 ml Output Urine Total 200 ml # Voids 1 Labs Laboratory Tests Test 08/07/21 12:43 08/07/21 23:15 SARS-CoV-2 RNA (MARIEL) Negative (Negative) Urine Opiates Screen Pos (NEG) Urine Methadone Screen Neg (NEG) Urine Barbiturates Neg (NEG) Urine Phencyclidine Screen Neg (NEG) Urine Amphetamine/Methamphetamine Neg (NEG) Urine Benzodiazepines Screen Neg (NEG) Urine Cocaine Screen Neg (NEG) Urine Cannabinoids Screen Pos (NEG) Urine Ethyl Alcohol Neg (NEG) Laboratory Tests Test 08/07/21 23:15 Urine Opiates Screen Pos (NEG) Urine Methadone Screen Neg (NEG) Urine Barbiturates Neg (NEG) Urine Phencyclidine Screen Neg (NEG) Urine Amphetamine/Methamphetamine Neg (NEG) Urine Benzodiazepines Screen Neg (NEG) Urine Cocaine Screen Neg (NEG) Urine Cannabinoids Screen Pos (NEG) Urine Ethyl Alcohol Neg (NEG) Problem List Problems Medical Problems: (1) Hereditary angioedema Status: Acute Justicifation of Admission Dx: Justifications for Admission: Justification of Admission Dx: Yes Respiratory Failure: Airway Obstruction EVANS HIGUERA MD 08/08/21 1708: EMMIE FORRESTER APRN Aug 08, 2021 14:56 EVANS HIGUERA MD Aug 08, 2021 17:08
--- NOTE | 2021-08-08 20:59 | PDOC2 ---
CONSULT Date of Consult Date of Consult DATE: 08/08/21 TIME: 20:47 Reason for Consult Reason for Consult: angioedema Referring Physician Referring Physician: Dr. Palm Identification/Chief Complaint Chief Complaint neck swelling Source Source: Chart review, Patient History of Present Illness Reason for Visit: 51 yo M with history of angioedema. Pt has history of airway compromise. Currently improved. Main c/o currently is neck swelling and abd pain. Past Medical History Pulmonary: Bronchitis GI: No pertinent hx Heme/Onc: Anemia NOS, Other Past Surgical History Past Surgical History: Other Family History Family History: No Significant, Hypertension Social History 1 pack per day ALCOHOL: none Drugs: Marijuana Current Problem List Problem List Problems Medical Problems: (1) Hereditary angioedema Status: Acute Current Medications Current Medications Current Medications Famotidine (Pepcid Vial) 20 mg 1X ONCE IVP Last administered on 08/07/21at 12:25; Start 08/07/21 at 11:15; Stop 08/07/21 at 11:23; Status DC Diphenhydramine HCl (Benadryl) 50 mg 1X ONCE IVP ; Start 08/07/21 at 11:15; Stop 08/07/21 at 11:30; Status DC Epinephrine HCl (Adrenalin) 0.3 mg 1X ONCE SQ ; Start 08/07/21 at 11:15; Stop 08/07/21 at 11:30; Status DC Diphenhydramine HCl (Benadryl) 50 mg 1X ONCE IM Last administered on at 11:33; Start 08/07/21 at 12:15; Stop 08/07/21 at 12:16; Status DC Epinephrine HCl (Adrenalin) 1 mg STK-MED ONCE .ROUTE ; Start 08/07/21 at 11:38; Stop 08/07/21 at 11:38; Status DC Fentanyl Citrate (Fentanyl 2ml Vial) 50 mcg 1X ONCE IVP Last administered on 08/07/21at 12:58; Start 08/07/21 at 13:00; Stop 08/07/21 at 13:01; Status DC Diphenhydramine HCl (Benadryl) 50 mg PRN Q6HRS PRN IVP allergic reaction Last administered on 08/07/21at 15:17; Start 08/07/21 at 14:30; Stop 08/07/21 at 17:53; Status DC Fentanyl Citrate (Fentanyl 2ml Vial) 50 mcg PRN Q3HRS PRN IVP SEVERE PAIN 7-10 Last administered on 08/07/21at 15:20; Start 08/07/21 at 14:30; Stop 08/07/21 at 17:53; Status DC Pantoprazole Sodium (Protonix) 40 mg DAILYAC PO Last administered on 08/08/21at 06:24; Start 08/07/21 at 16:30 Dexamethasone Sodium Phosphate (Decadron) 4 mg 1X ONCE IVP ; Start 08/07/21 at 16:15; Stop 08/07/21 at 16:18; Status DC Acetaminophen (Tylenol) 650 mg PRN Q6HRS PRN PO MILD PAIN / TEMP > 100.3'F; Start 08/07/21 at 17:45 Oxycodone/ Acetaminophen (Percocet 10/325) 2 tab PRN Q6HRS PRN PO MODERATE- SEVERE PAIN Last administered on 08/08/21at 20:12; Start 08/07/21 at 18:00 Fentanyl Citrate (Fentanyl 2ml Vial) 50 mcg PRN Q3HRS PRN IVP SEVERE PAIN 7-10 Last administered on 08/08/21at 10:47; Start 08/07/21 at 20:00; Stop 08/08/21 at 10:48; Status DC Diphenhydramine HCl (Benadryl) 50 mg PRN Q6HRS PRN IVP INFLAMMATION Last administered on 08/08/21at 16:58; Start 08/07/21 at 20:00 Dexamethasone Sodium Phosphate (Decadron) 4 mg 1X ONCE IVP ; Start 08/07/21 at 20:00; Stop 08/07/21 at 20:29; Status DC Oxycodone HCl (OxyCONTIN) 10 mg BID PO Last administered on 08/08/21at 10:12; Start 08/08/21 at 09:00 Fentanyl Citrate (Fentanyl 2ml Vial) 50 mcg PRN Q3HRS PRN IVP SEVERE PAIN 7-10 Last administered on 08/08/21at 20:18; Start 08/08/21 at 11:15 Active Scripts Active Reported Promethazine Hcl 25 Mg Tablet 25 Mg PO PRN BID PRN Percocet 10-325 Mg Tablet (Oxycodone/Acetaminophen) 1 Each Tablet 2 Tab PO PRN Q4-6HRS PRN Oxycontin (Oxycodone HCl) 10 Mg Tab.er.12h 10 Mg PO BID Benadryl (Diphenhydramine Hcl) 25 Mg Capsule 50 Mg PO Q6HRS Eliquis (Apixaban) 5 Mg Tablet 5 Mg PO DAILY Protonix (Pantoprazole Sodium) 40 Mg Tablet.dr 40 Mg PO DAILYAC Epipen (Epinephrine) 0.3 Mg/0.3 Ml Auto.injct 0.3 Mg IM UD Allergies Allergies: Coded Allergies: iodine (Verified Allergy, Severe, 09/15/19) metoclopramide (Verified Allergy, Severe, 09/15/19) ondansetron (Verified Allergy, Severe, ANAPHYLAXIS, 09/15/19) prochlorperazine (Verified Allergy, Severe, 09/16/20) NSAIDS (Non-Steroidal Anti-Inflamma (Verified Allergy, Intermediate, 09/15/19) aspirin (Verified Allergy, Intermediate, 09/15/19) morphine (Verified Allergy, Intermediate, 09/15/19) prednisone (Verified Allergy, Intermediate, 09/15/19) Uncoded Allergies: ALL STEROIDS (Allergy, Unknown, "MAKES ME REALLY SICK", 08/07/21) ROS HEENT: YES: Other (neck swelling) Gastrointestinal: Yes Abdominal Pain Physical Exam General: Alert, Oriented X3, Cooperative, mild distress HEENT: Atraumatic, Other (bilateral neck swelling) Abdomen: Soft, Other (mild TTP) Extremities: No clubbing, No cyanosis Skin: No rashes, No breakdown Neuro: Normal speech, Sensation intact Psych/Mental Status: Mental status NL, Mood NL Vitals VITALS Vital Signs Date Time Temp Pulse Resp B/P (MAP) Pulse Ox O2 Delivery O2 Flow Rate FiO2 08/08/21 20:18 20 Room Air 08/08/21 18:13 99 08/08/21 15:00 98.3 80 142/93 (109) 98.3 Labs Labs Laboratory Tests Test 08/07/21 12:43 08/07/21 23:15 SARS-CoV-2 RNA (MARIEL) Negative (Negative) Urine Opiates Screen Pos (NEG) Urine Methadone Screen Neg (NEG) Urine Barbiturates Neg (NEG) Urine Phencyclidine Screen Neg (NEG) Urine Amphetamine/Methamphetamine Neg (NEG) Urine Benzodiazepines Screen Neg (NEG) Urine Cocaine Screen Neg (NEG) Urine Cannabinoids Screen Pos (NEG) Urine Ethyl Alcohol Neg (NEG) Laboratory Tests Test 08/07/21 23:15 Urine Opiates Screen Pos (NEG) Urine Methadone Screen Neg (NEG) Urine Barbiturates Neg (NEG) Urine Phencyclidine Screen Neg (NEG) Urine Amphetamine/Methamphetamine Neg (NEG) Urine Benzodiazepines Screen Neg (NEG) Urine Cocaine Screen Neg (NEG) Urine Cannabinoids Screen Pos (NEG) Urine Ethyl Alcohol Neg (NEG) Assessment/Plan Assessment/Plan Angioedema will tentatively plan tracheostomy pending improvement in neck swelling and off anticoag Thanks for consult! EVANS HIGUERA MD Aug 08, 2021 20:59
--- NOTE | 2021-08-08 23:16 | PDOC ---
Date and Time Called to place IV. Pt with nonfunctioning 24 gauge IV L chest wall and poorly flushing 24 gauge IV only partially advanced in R hand. Multiple attempts to place IV with ultrasound and vein finder. Finally successful with 24 gauge IV in R wrist. Pt has had multiple central lines, port a caths, PICC lines, midlines in the past. He is a very difficult IV placement. Pt with known angioedema history. Pt complaining of itchy throat during IV placement attempts. Pt needs to have better IV access than a 24 gauge IV. Current Medications Current Medications Famotidine (Pepcid Vial) 20 mg 1X ONCE IVP Last administered on 08/07/21at 12:25; Start 08/07/21 at 11:15; Stop 08/07/21 at 11:23; Status DC Diphenhydramine HCl (Benadryl) 50 mg 1X ONCE IVP ; Start 08/07/21 at 11:15; Stop 08/07/21 at 11:30; Status DC Epinephrine HCl (Adrenalin) 0.3 mg 1X ONCE SQ ; Start 08/07/21 at 11:15; Stop 08/07/21 at 11:30; Status DC Diphenhydramine HCl (Benadryl) 50 mg 1X ONCE IM Last administered on 08/07/21at 11:33; Start 08/07/21 at 12:15; Stop 08/07/21 at 12:16; Status DC Epinephrine HCl (Adrenalin) 1 mg STK-MED ONCE .ROUTE ; Start 08/07/21 at 11:38; Stop 08/07/21 at 11:38; Status DC Fentanyl Citrate (Fentanyl 2ml Vial) 50 mcg 1X ONCE IVP Last administered on 08/07/21at 12:58; Start 08/07/21 at 13:00; Stop 08/07/21 at 13:01; Status DC Diphenhydramine HCl (Benadryl) 50 mg PRN Q6HRS PRN IVP allergic reaction Last administered on 08/07/21at 15:17; Start 08/07/21 at 14:30; Stop 08/07/21 at 17:53; Status DC Fentanyl Citrate (Fentanyl 2ml Vial) 50 mcg PRN Q3HRS PRN IVP SEVERE PAIN 7-10 Last administered on 08/07/21at 15:20; Start 08/07/21 at 14:30; Stop 08/07/21 at 17:53; Status DC Pantoprazole Sodium (Protonix) 40 mg DAILYAC PO Last administered on 08/08/21at 06:24; Start 08/07/21 at 16:30 Dexamethasone Sodium Phosphate (Decadron) 4 mg 1X ONCE IVP ; Start 08/07/21 at 16:15; Stop 08/07/21 at 16:18; Status DC Acetaminophen (Tylenol) 650 mg PRN Q6HRS PRN PO MILD PAIN / TEMP > 100.3'F; Start 08/07/21 at 17:45 Oxycodone/ Acetaminophen (Percocet 10/325) 2 tab PRN Q6HRS PRN PO MODERATE- SEVERE PAIN Last administered on 08/08/21at 20:12; Start 08/07/21 at 18:00 Fentanyl Citrate (Fentanyl 2ml Vial) 50 mcg PRN Q3HRS PRN IVP SEVERE PAIN 7-10 Last administered on 08/08/21at 10:47; Start 08/07/21 at 20:00; Stop 08/08/21 at 10:48; Status DC Diphenhydramine HCl (Benadryl) 50 mg PRN Q6HRS PRN IVP INFLAMMATION Last administered on 08/08/21at 16:58; Start 08/07/21 at 20:00 Dexamethasone Sodium Phosphate (Decadron) 4 mg 1X ONCE IVP ; Start 08/07/21 at 20:00; Stop 08/07/21 at 20:29; Status DC Oxycodone HCl (OxyCONTIN) 10 mg BID PO Last administered on 08/08/21at 10:12; Start 08/08/21 at 09:00 Fentanyl Citrate (Fentanyl 2ml Vial) 50 mcg PRN Q3HRS PRN IVP SEVERE PAIN 7-10 Last administered on 08/08/21at 20:18; Start 08/08/21 at 11:15 Active Scripts Active Reported Promethazine Hcl 25 Mg Tablet 25 Mg PO PRN BID PRN Percocet 10-325 Mg Tablet (Oxycodone/Acetaminophen) 1 Each Tablet 2 Tab PO PRN Q4-6HRS PRN Oxycontin (Oxycodone HCl) 10 Mg Tab.er.12h 10 Mg PO BID Benadryl (Diphenhydramine Hcl) 25 Mg Capsule 50 Mg PO Q6HRS Eliquis (Apixaban) 5 Mg Tablet 5 Mg PO DAILY Protonix (Pantoprazole Sodium) 40 Mg Tablet.dr 40 Mg PO DAILYAC Epipen (Epinephrine) 0.3 Mg/0.3 Ml Auto.injct 0.3 Mg IM UD Pertinent Labs/Test Laboratory Tests Test 08/07/21 12:43 08/07/21 23:15 SARS-CoV-2 RNA (MARIEL) Negative (Negative) Urine Opiates Screen Pos (NEG) Urine Methadone Screen Neg (NEG) Urine Barbiturates Neg (NEG) Urine Phencyclidine Screen Neg (NEG) Urine Amphetamine/Methamphetamine Neg (NEG) Urine Benzodiazepines Screen Neg (NEG) Urine Cocaine Screen Neg (NEG) Urine Cannabinoids Screen Pos (NEG) Urine Ethyl Alcohol Neg (NEG) Laboratory Tests Test 08/07/21 23:15 Urine Opiates Screen Pos (NEG) Urine Methadone Screen Neg (NEG) Urine Barbiturates Neg (NEG) Urine Phencyclidine Screen Neg (NEG) Urine Amphetamine/Methamphetamine Neg (NEG) Urine Benzodiazepines Screen Neg (NEG) Urine Cocaine Screen Neg (NEG) Urine Cannabinoids Screen Pos (NEG) Urine Ethyl Alcohol Neg (NEG) LAST VITALS Vital Signs Date Time Temp Pulse Resp B/P (MAP) Pulse Ox O2 Delivery O2 Flow Rate FiO2 08/08/21 20:18 20 Room Air 08/08/21 19:00 98.5 80 145/93 (110) 96 98.5 NEYMAR NOLASCO CRNA Aug 08, 2021 23:16
[2021-08-08] MEDS ORDERED: LIDOCAINE 2% PF 5 ML VIAL. ONE (23:20)
[2021-08-09] MEDS: fentaNYL PF VIAL 100 MCG/2 ML VIAL IVP PRN ×8 (02:21→22:59)
[2021-08-09 03:00] VITALS: BP 108/73
[2021-08-09] MEDS: oxyCODONE/APAP 10/325 1 TAB TABLET PO PRN ×4 (03:18→22:59)
[2021-08-09] MEDS: diphenhydrAMINE 50 MG/ML VIAL IVP PRN ×3 (05:27→18:26)
--- NOTE | 2021-08-09 07:02 | PDOC ---
PULMONARY PROGRESS NOTES DATE: 08/09/21 TIME: 07:01 Subjective has some sob on RA appears comfortable Vitals Vital Signs Date Time Temp Pulse Resp B/P (MAP) Pulse Ox O2 Delivery O2 Flow Rate FiO2 08/09/21 05:27 18 Room Air 08/09/21 03:00 98.1 75 108/73 (85) 95 98.1 ROS: No Nausea General: Alert, No acute distress Lungs: Clear Cardiovascular: S1, S2 Abdomen: Soft, Non-tender Neuro Exam: Alert Extremities: No Edema Skin: Warm Labs Laboratory Tests Test 08/07/21 12:43 08/07/21 23:15 SARS-CoV-2 RNA (MARIEL) Negative (Negative) Urine Opiates Screen Pos (NEG) Urine Methadone Screen Neg (NEG) Urine Barbiturates Neg (NEG) Urine Phencyclidine Screen Neg (NEG) Urine Amphetamine/Methamphetamine Neg (NEG) Urine Benzodiazepines Screen Neg (NEG) Urine Cocaine Screen Neg (NEG) Urine Cannabinoids Screen Pos (NEG) Urine Ethyl Alcohol Neg (NEG) Medications Active Scripts Medications Dose Route/Sig Max Daily Dose Days Date Category Promethazine Hcl 25 Mg Tablet 25 Mg PO PRN BID PRN 09/16/20 Reported Percocet 10-325 Mg Tablet (Oxycodone/Acetaminophen) 1 Each Tablet 2 Tab PO PRN Q4-6HRS PRN 09/13/19 Reported Oxycontin (Oxycodone HCl) 10 Mg Tab.er.12h 10 Mg PO BID 09/13/19 Reported Benadryl (Diphenhydramine Hcl) 25 Mg Capsule 50 Mg PO Q6HRS 09/13/19 Reported Eliquis (Apixaban) 5 Mg Tablet 5 Mg PO DAILY 09/13/19 Reported Protonix (Pantoprazole Sodium) 40 Mg Tablet.dr 40 Mg PO DAILYAC 09/13/19 Reported Epipen (Epinephrine) 0.3 Mg/0.3 Ml Auto.injct 0.3 Mg IM UD 09/13/19 Reported Impression . IMPRESSION: 1. Progressive dyspnea, multifactorial. 2. Hereditary angioedema. 3. History of deep venous thrombosis and pulmonary embolism, factor V mutation, status post inferior vena cava filter placement. 4. Polysubstance use. Plan . antihistamine 02 titration protonix on eliuis for vte discussed w RADHA Shah MD Aug 09, 2021 07:02
[2021-08-09 07:30] VITALS: BP 101/74
--- NOTE | 2021-08-09 08:08 | PDOC ---
[facility] PROGRESS NOTE Date of Service DOS: DATE: 08/09/21 TIME: 08:08 Chief Complaint Chief Complaint Hereditary angioedema with acute throat swelling - He has declined to have a tracheostomy in the past. IV decadron declined, benadryl. Admitted to ICU, consult general surgery, pulmonology. Transfusion of FFP ordered 08/09 for persistent symptoms Intractable abdominal pain - IV fentanyl ordered for angioedema related pain History of polysubstance abuse History of deep venous thrombosis and pulmonary embolism in the past and HX factor V Leiden mutation for which he is on ELIQUIS Narcotic dependence hx HX CVA, Diabetes-Type II, FEN - ADA PPX - eliquis, may need to change to lovenox FULL CODE Dispo - ICU --> telemetry History of Present Illness History of Present Illness The patient is a 50-year-old male who has a history of sarcoidosis, hereditary angioedema, DVT/PE and Factor V leiden mutation with polysubstance abuse and multiple intubations for hereditary angioedema who comes to ED c/o bilateral jaw, abdominal, and scrotal pain and throat swelling. He awoke having difficulty speaking and took IM epinephrine at home 0.3mg and had some improvement but has neck pain abdominal pain scrotal pain worsened he felt his throat closing came to the ED for further care. EKG ordered and interpreted by myself 1111 hrs. as sinus rhythm at 99 bpm, unremarkable intervals, no axis deviation, no acute ischemic findings, No labs available. Chest x-ray no infiltrates Given benadryl and fentanyl IV with improvement in his symptoms. Notes he is amenable to elective traceostomy at this time. Admitted to ICU for further care. 08/08: Patient afebrile, currently breathing on room air. Multiple admissions for angioedema, and history of leaving AGAINST MEDICAL ADVICE. He is agreeable to elective trach at this time. Discussed with general surgery, this would not be until Wednesday. The patient and I have concerned that he would leave AMA if trach is not performed on Wednesday. We will keep him comfortable with as needed fentanyl until such time trach can be placed. Can transfer out of ICU to med/surg. Pain worse today neck swelling worse abdominal swelling and scrotal swelling feels symptomatically nourished patient he is also having some difficulty swallowing. plan: FFP transfusion for symptomatic heriditary angioedema with multiple systems involved. Vitals/I&O Vitals/I&O: Vital Signs Date Time Temp Pulse Resp B/P (MAP) Pulse Ox O2 Delivery O2 Flow Rate FiO2 08/09/21 05:57 18 Room Air 08/09/21 03:00 98.1 75 108/73 (85) 95 98.1 I & O 08/08/21 08/08/21 08/09/21 15:00 23:00 07:00 Intake Total 240 ml 350 ml Output Total 200 ml Balance 240 ml 150 ml Physical Exam General: Alert, Oriented X3, Cooperative, mild distress Heart: Regular rate Lungs: Clear Abdomen: Soft, Other (mild TTP) Extremities: No clubbing, No cyanosis Skin: No rashes, No breakdown Assessment and Plan Assessmemt and Plan Problems Medical Problems: (1) Hereditary angioedema Status: Acute Comment Review of Relevant I have reviewed the following items wandy (where applicable) has been applied. Medications: Current Medications Medications (Trade) Dose Ordered Sig/Shane Route PRN Reason Start Time Stop Time Status Last Admin Dose Admin Oxycodone HCl (OxyCONTIN) 10 mg BID PO 08/08/21 09:00 08/08/21 23:22 Fentanyl Citrate (Fentanyl 2ml Vial) 50 mcg PRN Q3HRS PRN IVP SEVERE PAIN 7-10 08/08/21 11:15 08/09/21 05:27 Justifications for Admission Other Justification ANGIOEDEMA HATTIE PETERSON MD Aug 09, 2021 08:08
[2021-08-09] MEDS: PANTOPRAZOLE 40 MG TABLET.DR. PO SCH (08:34)
[2021-08-09] MEDS: oxyCODONE ER 10 MG TAB.ER.12H PO SCH ×2 (08:34→20:47)
[2021-08-09 10:58] VITALS: BP 107/71
[2021-08-09 14:36] LABS: CREATININE 0.8 mg/dL (0.7-1.3); GFR 122.8
[2021-08-09 14:59] VITALS: BP 109/66
[2021-08-09 19:51] VITALS: BP 114/71
[2021-08-09 23:21] VITALS: BP 111/78
[2021-08-10] MEDS: fentaNYL PF VIAL 100 MCG/2 ML VIAL IVP PRN ×5 (01:15→09:48)
[2021-08-10] MEDS: diphenhydrAMINE 50 MG/ML VIAL IVP PRN ×2 (01:15→07:25)
[2021-08-10 02:30] VITALS: BP 129/79
[2021-08-10] MEDS: oxyCODONE/APAP 10/325 1 TAB TABLET PO PRN (05:11)
[2021-08-10 07:00] VITALS: BP 116/72
--- NOTE | 2021-08-10 08:04 | PDOC ---
PULMONARY PROGRESS NOTES DATE: 08/10/21 TIME: 08:02 Subjective has some sob on 02 appears comfortable Vitals Vital Signs Date Time Temp Pulse Resp B/P (MAP) Pulse Ox O2 Delivery O2 Flow Rate FiO2 08/10/21 07:41 Room Air 08/10/21 07:35 2.0 08/10/21 03:20 99 08/10/21 02:30 98.3 64 129/79 (96) 98.3 08/09/21 23:21 18 ROS: No Nausea General: Alert, No acute distress Lungs: Clear Cardiovascular: S1, S2 Abdomen: Soft, Non-tender Neuro Exam: Alert Extremities: No Edema Skin: Warm Labs Laboratory Tests Test 08/09/21 14:05 Creatinine 0.8 mg/dL (0.7-1.3) Estimated GFR (Cockcroft-Gault) 122.8 Laboratory Tests Test 08/09/21 14:05 Creatinine 0.8 mg/dL (0.7-1.3) Estimated GFR (Cockcroft-Gault) 122.8 Medications Active Scripts Medications Dose Route/Sig Max Daily Dose Days Date Category Promethazine Hcl 25 Mg Tablet 25 Mg PO PRN BID PRN 09/16/20 Reported Percocet 10-325 Mg Tablet (Oxycodone/Acetaminophen) 1 Each Tablet 2 Tab PO PRN Q4-6HRS PRN 09/13/19 Reported Oxycontin (Oxycodone HCl) 10 Mg Tab.er.12h 10 Mg PO BID 09/13/19 Reported Benadryl (Diphenhydramine Hcl) 25 Mg Capsule 50 Mg PO Q6HRS 09/13/19 Reported Eliquis (Apixaban) 5 Mg Tablet 5 Mg PO DAILY 09/13/19 Reported Protonix (Pantoprazole Sodium) 40 Mg Tablet.dr 40 Mg PO DAILYAC 09/13/19 Reported Epipen (Epinephrine) 0.3 Mg/0.3 Ml Auto.injct 0.3 Mg IM UD 09/13/19 Reported Impression . IMPRESSION: 1. Progressive dyspnea, multifactorial. 2. Hereditary angioedema. 3. History of deep venous thrombosis and pulmonary embolism, factor V mutation, status post inferior vena cava filter placement. 4. Polysubstance use. Plan . antihistamine 02 titration protonix on eliuis for vte steroid causes more throat edema per pt agree w ffp discussed w dr kirby would need iv access discussed w pt/rn RADHA PROCTOR MD Aug 10, 2021 08:04
[2021-08-10] MEDS: PANTOPRAZOLE 40 MG TABLET.DR. PO SCH (08:16)
[2021-08-10] MEDS: oxyCODONE ER 10 MG TAB.ER.12H PO SCH (08:18)
--- NOTE | 2021-08-10 11:52 | PDOC ---
[employer] PROGRESS NOTE Date of Service DOS: DATE: 08/10/21 TIME: 11:50 Chief Complaint Chief Complaint Hereditary angioedema with acute throat swelling - He has declined to have a tracheostomy in the past. IV decadron declined, benadryl. Admitted to ICU, consult general surgery, pulmonology. Transfusion of FFP ordered 08/09 for persistent symptoms Intractable abdominal pain - IV fentanyl ordered for angioedema related pain History of polysubstance abuse History of deep venous thrombosis and pulmonary embolism in the past and HX factor V Leiden mutation for which he is on ELIQUIS Narcotic dependence hx HX CVA, Diabetes-Type II, FEN - ADA PPX - eliquis, may need to change to lovenox FULL CODE Dispo - ICU --> telemetry History of Present Illness History of Present Illness The patient is a 50-year-old male who has a history of sarcoidosis, hereditary angioedema, DVT/PE and Factor V leiden mutation with polysubstance abuse and multiple intubations for hereditary angioedema who comes to ED c/o bilateral jaw, abdominal, and scrotal pain and throat swelling. He awoke having difficulty speaking and took IM epinephrine at home 0.3mg and had some improvement but has neck pain abdominal pain scrotal pain worsened he felt his throat closing came to the ED for further care. EKG ordered and interpreted by myself 1111 hrs. as sinus rhythm at 99 bpm, unremarkable intervals, no axis deviation, no acute ischemic findings, No labs available. Chest x-ray no infiltrates Given benadryl and fentanyl IV with improvement in his symptoms. Notes he is amenable to elective traceostomy at this time. Admitted to ICU for further care. 08/08: Patient afebrile, currently breathing on room air. Multiple admissions for angioedema, and history of leaving AGAINST MEDICAL ADVICE. He is agreeable to elective trach at this time. Discussed with general surgery, this would not be until Wednesday. The patient and I have concerned that he would leave AMA if trach is not performed on Wednesday. We will keep him comfortable with as needed fentanyl until such time trach can be placed. Can transfer out of ICU to med/surg. 08/09: Pain worse today neck swelling worse abdominal swelling and scrotal swelling feels symptomatically nourished patient he is also having some difficulty swallowing. FFP ordered however his IV access is too small to accommodate this and despite multiple times by nursing anesthesia physician unable to get peripheral access, awaiting central line 08/10: Symptomatically improved today with Benadryl and has 2 additional rounds of epinephrine. He is a little frustrated but notes his pain is controlled he is breathing better he is able to swallow a little better today and he would prefer discharge rather than waiting for FFP infusion. Have counseled him on the risks and benefits and if observed him eating and drinking will discharge with strict instructions for return he is going to be with his sister will bring him to the ED if symptoms do recur. Vitals/I&O Vitals/I&O: Vital Signs Date Time Temp Pulse Resp B/P (MAP) Pulse Ox O2 Delivery O2 Flow Rate FiO2 08/10/21 09:48 Room Air 08/10/21 08:21 2.0 08/10/21 07:00 98.3 76 18 116/72 (87) 96 98.3 I & O 08/09/21 08/09/21 08/10/21 15:00 23:00 07:00 Intake Total 360 ml 240 ml 240 ml Output Total 300 ml Balance 360 ml 240 ml -60 ml Physical Exam General: Alert, Oriented X3, Cooperative, mild distress Heart: Regular rate Lungs: Clear Abdomen: Soft, Other (mild TTP) Extremities: No clubbing, No cyanosis Skin: No rashes, No breakdown Labs Labs: Laboratory Tests Test 08/09/21 14:05 Creatinine 0.8 mg/dL (0.7-1.3) Estimated GFR (Cockcroft-Gault) 122.8 Assessment and Plan Assessmemt and Plan Problems Medical Problems: (1) Hereditary angioedema Status: Acute Comment Review of Relevant I have reviewed the following items wandy (where applicable) has been applied. Medications: Current Medications Medications (Trade) Dose Ordered Sig/Shane Route PRN Reason Start Time Stop Time Status Last Admin Dose Admin Fentanyl Citrate (Fentanyl 2ml Vial) 50 mcg PRN Q2HRS PRN IVP SEVERE PAIN 7-10 08/09/21 19:00 08/10/21 09:48 Lorazepam (Ativan) 1 mg PRN Q6HRS PRN PO ANXIETY / AGITATION 08/10/21 02:45 08/10/21 03:08 Justifications for Admission Other Justification ANGIOEDEMA HATTIE PETERSON MD Aug 10, 2021 11:52
--- NOTE | 2021-08-10 11:58 | PDOC3 ---
Discharge Summary Visit Information Date of Admission: Aug 07, 2021 Date of Discharge: Aug 10, 2021 Admitting Diagnosis: Abdominal, scrotal, neck pain. Angioedema Final Diagnosis Problems Medical Problems: (1) Hereditary angioedema Status: Acute Brief Hospital Course Allergies Allergies Coded Allergies Type Severity Reaction Last Updated Verified iodine Allergy Severe 09/15/19 Yes metoclopramide Allergy Severe 09/15/19 Yes ondansetron Allergy Severe ANAPHYLAXIS 09/15/19 Yes prochlorperazine Allergy Severe 09/16/20 Yes NSAIDS (Non-Steroidal Anti-Inflamma Allergy Intermediate 09/15/19 Yes aspirin Allergy Intermediate 09/15/19 Yes morphine Allergy Intermediate 09/15/19 Yes prednisone Allergy Intermediate 09/15/19 Yes Uncoded Allergies Type Severity Reaction Last Updated Verified ALL STEROIDS Allergy Unknown "MAKES ME REALLY SICK" 08/07/21 Vital Signs Vital Signs Date Time Temp Pulse Resp B/P (MAP) Pulse Ox O2 Delivery O2 Flow Rate FiO2 08/10/21 09:48 Room Air 08/10/21 08:21 2.0 08/10/21 07:00 98.3 76 18 116/72 (87) 96 98.3 Lab Results Laboratory Tests Test 08/09/21 14:05 Creatinine 0.8 mg/dL (0.7-1.3) Estimated GFR (Cockcroft-Gault) 122.8 Laboratory Tests Test 08/09/21 14:05 Creatinine 0.8 mg/dL (0.7-1.3) Estimated GFR (Cockcroft-Gault) 122.8 Brief Hospital Course Mr Christensen is a 50-year-old male who has a history of sarcoidosis, hereditary angioedema, DVT/PE and Factor V leiden mutation with polysubstance abuse and multiple intubations for hereditary angioedema who comes to ED c/o bilateral jaw, abdominal, and scrotal pain and throat swelling. He awoke having difficulty speaking and took IM epinephrine at home 0.3mg and had some improvement but has neck pain abdominal pain scrotal pain worsened he felt his throat closing came to the ED for further care. EKG ordered and interpreted by myself 1111 hrs. as sinus rhythm at 99 bpm, unremarkable intervals, no axis deviation, no acute ischemic findings, No labs available. Chest x-ray no infiltrates Given benadryl and fentanyl IV with improvement in his symptoms. Notes he is amenable to elective traceostomy at this time. Admitted to ICU for further care. 08/08: Patient afebrile, currently breathing on room air. Multiple admissions for angioedema, and history of leaving AGAINST MEDICAL ADVICE. He is agreeable to elective trach at this time. Discussed with general surgery, this would not be until Wednesday. The patient and I have concerned that he would leave AMA if trach is not performed on Wednesday. We will keep him comfortable with as needed fentanyl until such time trach can be placed. Can transfer out of ICU to med/surg. 08/09: Pain worse today neck swelling worse abdominal swelling and scrotal swelling feels symptomatically nourished patient he is also having some difficulty swallowing. FFP ordered however his IV access is too small to accommodate this and despite multiple times by nursing anesthesia physician unable to get peripheral access, awaiting central line 08/10: Symptomatically improved today with Benadryl and has 2 additional rounds of epinephrine. He is a little frustrated but notes his pain is controlled he is breathing better he is able to swallow a little better today and he would prefer discharge rather than waiting for FFP infusion. Have counseled him on the risks and benefits and if observed him eating and drinking will discharge with strict instructions for return he is going to be with his sister will bring him to the ED if symptoms do recur. Total had 3 doses of epinephrine IM. Consults: Pulmonology, General surgery Hereditary angioedema with acute throat swelling - He has declined to have a tracheostomy in the past. IV decadron declined, benadryl. Admitted to ICU, consult general surgery, pulmonology. Transfusion of FFP ordered 08/09 for persistent symptoms, unable to get, had epi instead due to IV loss Intractable abdominal pain - IV fentanyl ordered for angioedema related pain History of polysubstance abuse History of deep venous thrombosis and pulmonary embolism in the past and HX factor V Leiden mutation for which he is on ELIQUIS Narcotic dependence hx HX CVA, Diabetes-Type II, Greater than 30 minutes spent on d/c home with self care. Discharge Information Condition at Discharge: Improved Follow Up: Weeks Disposition/Orders: D/C to Home Scheduled Apixaban (Eliquis) 5 Mg Tablet, 5 MG PO DAILY for blood thinner, (Reported) Entered as Reported by: SHWETHA PAYNE RN on 09/13/19 7834 Diphenhydramine Hcl (Benadryl) 25 Mg Capsule, 50 MG PO Q6HRS for Allergic reaction , (Reported) Entered as Reported by: SHWETHA PAYNE RN on 09/13/19644 Epinephrine (Epipen) 0.3 Mg/0.3 Ml Auto.injct, 0.3 MG IM UD for allergic reaction, #1 Ref 0 (Reported) Entered as Reported by: SHWETHA PAYNE RN on 09/13/19629 Oxycodone HCl (Oxycontin) 10 Mg Tab.er.12h, 10 MG PO BID for pain, (Reported) Entered as Reported by: SHWETHA PAYNE RN on 09/13/19644 Last Action: Continued on 08/08/21 0723 by HATTIE PETERSON MD Pantoprazole Sodium (Protonix ) 40 Mg Tablet.dr, 40 MG PO DAILYAC for GERD, (Reported) Entered as Reported by: SHWETHA PAYNE RN on 09/13/19644 Last Action: Continued on 08/07/21 1606 by HATTIE PETERSON MD Scheduled PRN Oxycodone/Apap 10-325 (Percocet 10-325 Mg Tablet ) 1 Each Tablet, 2 TAB PO PRN Q4-6HRS PRN for PAIN, Ref 0 (Reported) Entered as Reported by: SHWETHA PAYNE RN on 09/13/19644 Promethazine Hcl (Promethazine Hcl) 25 Mg Tablet, 25 MG PO PRN BID PRN for NAUSEA/VOMITING, (Reported) Entered as Reported by: EVANS VALDES on 09/16/20 1258 Justicifation of Admission Dx: Justifications for Admission: Justification of Admission Dx: Yes Respiratory Failure: Airway Obstruction HATTIE PETERSON MD Aug 10, 2021 11:58
--- NOTE | 2021-08-10 12:15 | NUR ---
Discharge Note: Patient was discharged home with self care. Patients IV was discontinued by himself. Patient was given discharge summary/instructions, follow-ups and educational material. Patient did not have any further questions or concerns. Patient preferred to do trach as an outpatient basis. Patient ambulated to the main entrance accompanied by JACKELYN Ruiz, where patients cab was waiting for him to take him home.
[2021-08-22] MEDS ORDERED: OLAN5TAB7 PO (12:00)
[2021-08-22] MEDS ORDERED: POLY17PO52 PO (12:00)
[2021-08-22] MEDS ORDERED: SENN-209 PO (12:00)
== END 2021-08-10 12:18 | disposition home or self-care (01) | DRG 642 ==
LOC: ER 10:42 → 1 WEST ICU 13:07 → EEVIPCON 13:07 → 5 NORTH 08-08 16:06
PROVIDERS: ADMIT Internal Medicine; ATTEND Internal Medicine
DX: D84.1 Defects in the complement system (principal); D68.51 Activated protein C resistance; F11.20 Opioid dependence, uncomplicated; D86.9 Sarcoidosis, unspecified; E11.9 Type 2 diabetes mellitus without complications; E78.5 Hyperlipidemia, unspecified; F17.210 Nicotine dependence, cigarettes, uncomplicated; J44.9 Chronic obstructive pulmonary disease, unspecified; N50.82 Scrotal pain; N50.89 Other specified disorders of the male genital organs; R13.10 Dysphagia, unspecified; Z79.01 Long term (current) use of anticoagulants; Z82.49 Family history of ischemic heart disease and other diseases of the circulatory system; Z86.711 Personal history of pulmonary embolism; Z86.718 Personal history of other venous thrombosis and embolism; Z86.73 Personal history of transient ischemic attack (TIA), and cerebral infarction without residual deficits; Z93.1 Gastrostomy status; Z95.828 Presence of other vascular implants and grafts; Z20.822 Contact with and (suspected) exposure to COVID-19; R59.0 Localized enlarged lymph nodes
CPT/HCPCS: 36415; 71045; 80307; 82565; 86850; 86900; 86901; 93005; 96372; 96374; 96375; 96376; J1200; J3010; J3490; U0003; U0005; 99285-25; G0378

== ENCOUNTER 2021-08-18 10:56 | Inpatient (IN) | payer MEDICAID ==
[~2021-08-18] VITALS: Ht 182.9 cm; Wt 87.5 kg
[2021-08-18] VITALS (8 sets, daily range): BP systolic 127–161; BP diastolic 78–98
--- NOTE | 2021-08-18 11:23 | PHYS DOC ---
Past Medical History Past Medical History: CVA, Diabetes-Type II, DVT, CT Additional Past Medical Histor: PE,substance abuse,HEREDITARY ANGIOEDEMA,SARCOIDOSIS,ACUTE RESP FAILURE Past Surgical History: Cholecystectomy, Other Additional Past Surgical Histo: CHEST TUBE INSERTION;PEG TUBE,PAC X 2/WITH REMOVAL,INTUBATED 18X'S Smoking Status: Former Smoker Alcohol Use: None Drug Use: None General Adult HPI: HPI: 51 yo M PMH sarcoidosis, hereditary angioedema, DVT/PE and Factor V leiden mutation (on eliquis) with polysubstance abuse and multiple intubations for hereditary angioedema who comes to ED c/o jaw and hand swelling, used his epipen prior to arrival. Hx somewhat limited-pt able to speak but reports he cannot (appears voluntary). Is writing on paper- refusing any intubation. Pt is concerned about his blood pressure with epinephrine use. Review of Systems: Review of Systems: Constitutional: Denies fever or chills. [] Eyes: Denies change in visual acuity. [] HENT: Denies nasal congestion or sore throat. [] Respiratory: Denies cough or hemoptysis Cardiovascular: Denies chest pain or edema. [] GI: Denies nausea and vomiting, : Denies dysuria or hematuria Musculoskeletal: Denies back pain or joint pain. [] Integument: Denies rash or diaphoresis Neurologic: Denies headache, focal weakness or sensory changes. [] Endocrine: Denies polyuria or polydipsia. [] Lymphatic: Denies swollen glands. [] Psychiatric: Denies depression or anxiety. [] Heart Score: C/O Chest Pain: No Risk Factors: Risk Factors: DM, Current or recent (<one month) smoker, HTN, HLP, family hist ory of CAD, obesity. Risk Scores: Score 0 - 3: 2.5% MACE over next 6 weeks - Discharge Home Score 4 - 6: 20.3% MACE over next 6 weeks - Admit for Clinical Observation Score 7 - 10: 72.7% MACE over next 6 weeks - Early Invasive Strategies Allergies: Allergies: Allergies Coded Allergies Type Severity Reaction Last Updated Verified iodine Allergy Severe 09/15/19 Yes metoclopramide Allergy Severe 09/15/19 Yes ondansetron Allergy Severe ANAPHYLAXIS 09/15/19 Yes prochlorperazine Allergy Severe 09/16/20 Yes NSAIDS (Non-Steroidal Anti-Inflamma Allergy Intermediate 09/15/19 Yes aspirin Allergy Intermediate 09/15/19 Yes morphine Allergy Intermediate 09/15/19 Yes prednisone Allergy Intermediate 09/15/19 Yes Uncoded Allergies Type Severity Reaction Last Updated Verified ALL STEROIDS Allergy Unknown "MAKES ME REALLY SICK" 08/07/21 Physical Exam: PE: Constitutional: no acute distress, non-toxic appearance. HENT: Normocephalic, atraumatic, swelling over lower cheeks, cannot appreciate any lip/tongue/oropharyngeal edema Eyes: EOMI, conjunctiva normal, no discharge. Neck: Normal range of motion, supple, Cardiovascular: S1/2 present, regular rhythm Lungs & Thorax: Speaking in full sentences, bilateral equal chest rise, no tachypnea or increased work of breathing Abdomen: soft, no tenderness, Skin: Warm, dry, no erythema, no rash. [] Back: No tenderness, no CVA tenderness. [] Extremities: No tenderness, no cyanosis, no lower extremity edema Neurologic: Alert and oriented X 3, normal motor function, normal sensory function, no focal deficits noted. [] Psychologic: emotionally labile, keeps stating he's in pain, easily upset by staff who recognize him and he becomes defensive stating "I didn't leave [facility], they just don't like me" EKG: EKG: Sinus tachycardia 111 bpm, no axis deviation, QTC 458, no T wave inversion, no ST elevation or ST depression Radiology/Procedures: Radiology/Procedures: IMAGING REPORT Signed PATIENT: JAY WHITE CACCOUNT: [id number] : 1970 LOCATION: ER AGE: 51 SEX: M EXAM STATUS: PRE ER ORD. PHYSICIAN: CASSANDRA AGUILA DO REASON: angioedema PROCEDURE: PORTABLE CHEST 1V Single view of the chest. 08/18/2021 11:19 AM Indication: angioedema Comparison: Chest radiograph November 18, 2020 Findings: There is no pneumothorax, pleural effusion, or focal infiltrate. Heart size is normal. Bony thorax is grossly intact. There is a cylindrical radiopacity projecting over the left mid chest, stable for many years which appears to be the result of retained connector previously used to connect the port catheter to the port reservoir. The port appears to be removed sometime between November and June 2007 based on available comparisons. Impression: 1. No evidence of acute cardiopulmonary process 2. Small retained connecting device in the anterior chest wall from prior removal of a port between November and June 2007. Electronically signed by: Cristi Regalado MD (08/18/2021 11:52 AM) [id number] DICTATED and SIGNED BY: CRISTI REGALADO MD DATE: 08/18/21 [id number] 0 Indication: Vascular access Consent: The patient provided consent for this procedure. Procedure: The patient was positioned appropriately and the skin over the right internal jugular vein was prepped and draped in a sterile fashion. Local anesthesia was used. Ultrasound guidance utilized. A large bore needle was used to identify the vein. A guide wire was then inserted into the vein through the needle. A triple lumen catheter was then inserted into the vessel over the guide wire using the Seldinger technique-unable to advance more than 10 cm. Line and guidewire removed and direct pressure held for at least 10 minutes. The patient tolerated the procedure well. Complications: Could not advance triple-lumen catheter more than 10 cm (suspect blockage in distal vessel). Pt moving multiple times during placement despite verbal re-direction (noncompliant). Indication: Vascular access Consent: The patient provided consent for this procedure. Procedure: The patient was positioned appropriately and the skin over the left femoral vein was prepped and draped in a sterile fashion. Local anesthesia was used. Ultrasound guidance utilized. A large bore needle was used to identify the vein. A guide wire was then inserted into the vein through the needle. A triple lumen catheter was then inserted into the vessel over the guide wire using the Seldinger technique. All ports showed good, free flowing blood return and were flushed with saline solution. The catheter was then securely fastened to the skin with sutures and covered with a sterile dressing. The patient tolerated the procedure well. Complications: none-I gave fentanyl for procedure Course & Med Decision Making: Course & Med Decision Making Pertinent Labs and Imaging studies reviewed. (See chart for details) Concern for angioedema. EMR reviewed-pt left [facility] prior to trach. Pt with intermittent speech which I suspect is voluntary. Pulse ox never below 90%. Cheek swelling decreased after epi x 3. I discussed patient's care with hospitalist Dr. Dietrich and motor coach driver Dr. Romero. Will admit to ICU for further medical management. I have spoken with the patient and/or caregivers. I have explained the patient's condition, diagnosis and treatment plan based on the information available to me at this time. I have answered the patient's and/or caregivers questions and answered any concerns. The patient and/or caregivers have as good an understanding of the patient's diagnosis, condition and treatment plan as can be expected at this point. The patient has been stabilized within the capability of the emergency department. The patient will be transported for further care and management or will be moved to an observation or inpatient service. I have communicated with the staff or medical practitioner taking over this patient's care. Critical Care: Authorized and Performed by: Cassandra Aguila DO Total critical care time: approximately 60 minutes Due to a high probability of clinically significant, life threatening deterioration, the patient required my highest level of preparedness to intervene emergently and I personally spent this critical care time directly and personally managing the patient. This critical care time included obtaining a history; examining the patient; pulse oximetry; ventilator management if necessary; ordering and review of studies; arranging urgent treatment with development of a management plan; evaluation of patient's response to treatment; frequent reassessment; discussion with patient/family; and, discussions with other providers. This critical care time was performed to assess and manage the high probability of imminent, life-threatening deterioration that could result in multi-organ failure. It was exclusive of separately billable procedures and treating other patients and teaching time. Please see MDM section and the rest of the note for further information on patient assessment and treatment. Dragon Disclaimer: Marguerite Disclaimer: This electronic medical record was generated, in whole or in part, using a voice recognition dictation system. Departure Departure Impression: Primary Impression: Hereditary angioedema Disposition: ADMITTED INPATIENT Admitting Physician: ALEX (Dr. Corbin) Condition: CRITICAL Referrals: NO PCP (PCP) CASSANDRA AGUILA DO Aug 18, 2021 11:23
[2021-08-18] MEDS ORDERED: diphenhydrAMINE 50 MG/ML VIAL IM ONE (11:30)
[2021-08-18] MEDS ORDERED: DEXAMETHASONE SOD PHOS 20 MG/5 ML VIAL. IV ONE (11:30)
[2021-08-18] MEDS ORDERED: diphenhydrAMINE 50 MG/ML VIAL IV ONE (11:30)
[2021-08-18] MEDS ORDERED: EPINEPHrine 1 MG/ML VIAL IM ONE (11:30)
[2021-08-18] MEDS ORDERED: IV NORMAL SALINE 1000ML BAG 1,000 ML IV SCH (11:30)
[2021-08-18] MEDS ORDERED: FAMOTIDINE 20 MG/2 ML VIAL IVP ONE (11:30)
[2021-08-18] MEDS: DEXAMETHASONE SOD PHOS 20 MG/5 ML VIAL. IM ONE ×2 (11:30→11:33)
[2021-08-18] MEDS ORDERED: EPINEPHrine 1 MG/ML VIAL SQ ONE ×2 (11:45)
[2021-08-18] MEDS ORDERED: fentaNYL PF VIAL 100 MCG/2 ML VIAL IVP ONE (11:45)
--- NOTE | 2021-08-18 11:55 | RAD ---
Single view of the chest. 08/18/2021 11:19 AM Indication: angioedema Comparison: Chest radiograph November 18, 2020 Findings: There is no pneumothorax, pleural effusion, or focal infiltrate. Heart size is normal. Bony thorax is grossly intact. There is a cylindrical radiopacity projecting over the left mid chest, stable for many years which ap pears to be the result of retained connector previously used to connect the port catheter to the port reservoir. The port appears to be removed sometime between November and June 2007 based on avai lable comparisons. Impression: 1. No evidence of acute cardiopulmonary process 2. Small retained connecting device in the anterior chest wall from prior removal of a port between and June 2007. Electronically signed by: Cristi Raza MD (08/18/2021 11:52 AM) [id number]
[2021-08-18] MEDS ORDERED: MIDAZOLAM HCL/PF 2 MG/2 ML VIAL. ONE (12:22)
[2021-08-18] MEDS ORDERED: MIDAZOLAM HCL/PF 2 MG/2 ML VIAL. IM ONE (12:30)
[2021-08-18] MEDS ORDERED: fentaNYL PF VIAL 100 MCG/2 ML VIAL IM ONE (12:30)
[2021-08-18 13:49] LABS: CALCIUM 8.6 mg/dL (8.5-10.1); CREATININE 0.9 mg/dL (0.7-1.3); GFR 107.2; POTASSIUM 3.3 mmol/L (3.5-5.1)
[2021-08-18 13:55] LABS: ALBUMIN 3.4 g/dL (3.4-5.0); ALBUMIN/GLOBULIN RATIO 0.9 (1.0-1.7); TOTAL BILIRUBIN 0.3 mg/dL (0.2-1.0); TOTAL PROTEIN 7.1 g/dL (6.4-8.2)
--- NOTE | 2021-08-18 13:55 | PDOC1 ---
History and Physical Date of Admission Date of Admission DATE: 08/18/21 TIME: 13:44 Source Source: Chart review, Patient History of Present Illness History of Present Illness Mr Christensen is a 50-year-old male who has a history of sarcoidosis, hereditary angioedema, DVT/PE and Factor V leiden mutation with polysubstance abuse and multiple intubations for hereditary angioedema who comes to ED c/o bilateral jaw, abdominal, and scrotal pain and throat swelling. He awoke having difficulty speaking and came to ER, has acute neck pain abdominal pain scrotal pain. He reports he was unable to take his PO meds. ER unable to place IJ, femoral line placed Notes he is amenable to elective traceostomy at this time. I saw him with Dr. Romero, pt could talk at times, other times could not and had to write on a notepad to communicate. Dr. Guzman discussed with Dr. Corbin, IV FFP ordered Past Medical History Pulmonary: Bronchitis GI: No pertinent hx Heme/Onc: Anemia NOS, Other ENT: No pertinent hx Renal/: No pertinent hx Past Surgical History Past Surgical History: Other Family History Family History: No Significant, Hypertension Social History Smoke: No ALCOHOL: none Drugs: Marijuana, Other Current Problem List Problem List Problems Medical Problems: (1) Hereditary angioedema Status: Acute Current Medications Current Medications Current Medications Diphenhydramine HCl (Benadryl) 50 mg 1X ONCE IV ; Start 08/18/21 at 11:30; Stop 08/18/21 at 11:31; Status Cancel Famotidine (Pepcid Vial) 20 mg 1X ONCE IVP ; Start 08/18/21 at 11:30; Stop 08/18/21 at 11:31; Status Cancel Epinephrine HCl (Adrenalin) 0.3 mg 1X ONCE IM Last administered on 08/18/21at 11:33; Start 08/18/21 at 11:30; Stop 08/18/21 at 11:31; Status DC Sodium Chloride 1,000 ml @ 1,000 mls/hr Q1H IV ; Start 08/18/21 at 11:30; Stop 08/18/21 at 12:29; Status DC Dexamethasone Sodium Phosphate (Decadron) 10 mg 1X ONCE IV ; Start 08/18/21 at 11:30; Stop 08/18/21 at 11:31; Status Cancel Diphenhydramine HCl (Benadryl) 50 mg 1X ONCE IM Last administered on 08/18/21at 11:34; Start 08/18/21 at 11:30; Stop 08/18/21 at 11:31; Status DC Dexamethasone Sodium Phosphate (Decadron) 12 mg 1X ONCE IM ; Start 08/18/21 at 11:30; Stop 08/18/21 at 11:31; Status DC Epinephrine HCl (Adrenalin) 0.3 mg 1X ONCE SQ Last administered on 08/18/21at 11:43; Start 08/18/21 at 11:45; Stop 08/18/21 at 11:46; Status DC Epinephrine HCl (Adrenalin) 0.3 mg 1X ONCE SQ Last administered on 08/18/21at 12:14; Start 08/18/21 at 11:45; Stop 08/18/21 at 11:46; Status DC Fentanyl Citrate (Fentanyl 2ml Vial) 75 mcg 1X ONCE IVP ; Start 08/18/21 at 11:45; Stop 08/18/21 at 11:46; Status DC Fentanyl Citrate (Fentanyl 2ml Vial) 75 mcg 1X ONCE IM Last administered on 08/18/21at 12:02; Start 08/18/21 at 12:30; Stop 08/18/21 at 12:31; Status DC Midazolam HCl (Versed) 2 mg STK-MED ONCE .ROUTE ; Start 08/18/21 at 12:22; Stop 08/18/21 at 12:23; Status DC Midazolam HCl (Versed) 2 mg 1X ONCE IM Last administered on 08/18/21at 12:27; Start 08/18/21 at 12:30; Stop 08/18/21 at 12:31; Status DC Diphenhydramine HCl (Benadryl) 50 mg Q6HRS PO ; Start 08/18/21 at 18:00 Oxycodone HCl (OxyCONTIN) 10 mg BID PO ; Start 08/18/21 at 21:00 Oxycodone/ Acetaminophen (Percocet 10/325) 2 tab PRN Q4HRS PRN PO PAIN; Start 08/18/21 at 13:45 Pantoprazole Sodium (Protonix) 40 mg DAILYAC PO ; Start 08/19/21 at 07:30 Active Scripts Active Reported Promethazine Hcl 25 Mg Tablet 25 Mg PO PRN BID PRN Percocet 10-325 Mg Tablet (Oxycodone/Acetaminophen) 1 Each Tablet 2 Tab PO PRN Q4-6HRS PRN Oxycontin (Oxycodone HCl) 10 Mg Tab.er.12h 10 Mg PO BID Benadryl (Diphenhydramine Hcl) 25 Mg Capsule 50 Mg PO Q6HRS Eliquis (Apixaban) 5 Mg Tablet 5 Mg PO DAILY Protonix (Pantoprazole Sodium) 40 Mg Tablet.dr 40 Mg PO DAILYAC Epipen (Epinephrine) 0.3 Mg/0.3 Ml Auto.injct 0.3 Mg IM UD Allergies Allergies: Coded Allergies: iodine (Verified Allergy, Severe, 09/15/19) metoclopramide (Verified Allergy, Severe, 09/15/19) ondansetron (Verified Allergy, Severe, ANAPHYLAXIS, 09/15/19) prochlorperazine (Verified Allergy, Severe, 09/16/20) NSAIDS (Non-Steroidal Anti-Inflamma (Verified Allergy, Intermediate, 09/15/19) aspirin (Verified Allergy, Intermediate, 09/15/19) morphine (Verified Allergy, Intermediate, 09/15/19) prednisone (Verified Allergy, Intermediate, 09/15/19) Uncoded Allergies: ALL STEROIDS (Allergy, Unknown, "MAKES ME REALLY SICK", 08/07/21) ROS General: YES: Chills; No: Night Sweats, Fatigue, Malaise, Appetite, Other PSYCHOLOGICAL ROS: No: Anxiety, Behavioral Disorder, Concentration difficultie, Decreased libido, Depression, Disorientation, Hallucinations, Hostility, Irritablity, Memory difficulties, Mood Swings, Obsessive thoughts, Physical abuse, Sexual abuse, Sleep disturbances, Suicidal ideation, Other Eyes: No Blurry vision, No Decreased vision, No Double vision, No Dry eyes, No Excessive tearing, No Eye Pain, No Itchy Eyes, No Loss of vision, No Photophobia, No Scotomata, No Uses contacts, No Uses glasses, No Other HEENT: YES: Heacaches; No: Visual Changes, Hearing change, Nasal congestion, Nasal discharge, Oral lesions, Sinus pain, Sore Throat, Epistaxis, Sneezing, Snoring, Tinnitus, Vertigo, Vocal changes, Other Respiratory: YES: Shortness of breath Gastrointestinal: No Nausea, No Vomiting, No Abdominal Pain, No Diarrhea, No Constipation, No Melena, No Hematochezia, No Other Genitourinary: No Dysuria, No Frequency, No Incontinence, No Hematuria, No Retention, No Discharge, No Urgency, No Pain, No Flank Pain, No Other, No , No , No , No , No , No , No Musculoskeletal: No Gait Disturbance, No Joint Pain, No Joint Stiffness, No Joint Swelling, No Muscle Pain, No Muscular Weakness, No Pain In:, No Swelling In:, No Other Neurological: No Behavorial Changes, No Bowel/Bladder ControlChng, No Confusion, No Dizziness, No Gait Disturbance, No Headaches, No Impaired Coord/balance, No Memory Loss, No Numbness/Tingling, No Seizures, No Speech Problems, No Tremors, No Visual Changes, No Weakness, No Other Skin: Yes Dry Skin; No Eczema, No Hair Changes, No Lumps, No Mole Changes, No Mottling, No Nail Changes, No Pruritus, No Rash, No Skin Lesion Changes, No Other, No Acne Physical Exam General: Alert, Cooperative, moderate distress, Other (marked lateral jaw swelling, very thin neck) HEENT: PERRLA, EOMI Lungs: Clear to auscultation Heart: RRR Abdomen: Soft Rectal Exam: not examined Extremities: Normal pulses Skin: No significant lesion, Other (groin redness and rash, ) Neuro: Normal speech, Sensation intact Psych/Mental Status: Mental status NL, Mood NL Vitals Vitals Vital Signs Date Time Temp Pulse Resp B/P (MAP) Pulse Ox O2 Delivery O2 Flow Rate FiO2 08/18/21 13:38 98 161/90 (113) 95 08/18/21 12:02 18 Room Air 08/18/21 11:18 98.4 98.4 VTE Prophylaxis Ordered VTE Prophylaxis Devices: No VTE Pharmacological Prophylaxi: Yes Assessment/Plan Assessment/Plan He complains of acute throat swelling, recurrent Labs tests at OSH could not confirm heriditary angioedema He has declined to have a tracheostomy in the past, would like to consider today, will hold eliquis, consult surg . IV decadron declined - allergy IV benadryl given, admit to ICU, airway is stable History of polysubstance abuse, narcotic dependence ,chroinc pain disorder, he reports pancreatitis History of deep venous thrombosis and pulmonary embolism in the past - recent HX factor V Leiden assay negative HX CVA, Diabetes-Type II, Justifications for Admission Other Justification ANGIOEDEMA LINO FINCH MD Aug 18, 2021 13:54
[2021-08-18] MEDS ORDERED: fentaNYL PF VIAL 100 MCG/2 ML VIAL IVP PRN (14:45)
[2021-08-18] MEDS ORDERED: diphenhydrAMINE 50 MG/ML VIAL IVP ONE (14:45)
--- NOTE | 2021-08-18 15:55 | CONS ---
DATE OF CONSULTATION: 08/18/2021 PULMONARY CONSULTATION REASON FOR CONSULTATION: Respiratory insufficiency, history of hereditary angioedema. ATTENDING PHYSICIAN: Dr. Dietrich. HISTORY OF PRESENT ILLNESS: The patient is a 51-year-old male who is very well known to us from his multiple hospitalizations in the past. He has history of hereditary angioedema, although his C1q esterase levels at two different hospitals were within normal limits. He has required multiple intubations in the past at different hospitals. He was offered elective tracheostomy, but had declined prior to the procedure after initially agreeing to it. The patient also has history of factor V Leiden mutation for which he has been on chronic anticoagulation with Eliquis. It also should be noted that his factor V Leiden mutation at [facility] previously was normal. The patient also has a history of narcotic dependence. He has reportedly chronic pancreatitis, although per GI note, all the workup in the past had failed to show chronic pancreatitis. The patient was brought into the hospital again with complaining of difficulty in swallowing, along with bilateral jaw pain, abdominal pain, scrotal pain and neck pain. The patient is able to speak with some difficulty. I saw the patient in the Emergency Room. His oxygen saturations were 97%. Emergency Room physician placed a femoral line on him. I had a discussion with the patient regarding elective tracheostomy again and he agrees to pursue with it. I saw the patient along with Dr. Dietrich in the Emergency Room. His chest x-ray was clear. PAST MEDICAL HISTORY: Significant for history of hereditary angioedema, although two previous C1q esterase level at different hospitals were normal. History of factor V Leiden mutation. History of chronic anticoagulation secondary to above. History of CVA. History of chronic pancreatitis, although the workup in the past did not reveal such etiology. History of narcotic dependence. History of multiple intubations in the past at least 8-10 times. PAST SURGICAL HISTORY: IVC filter. ALLERGIES: MULTIPLE THEY WERE ALL LISTED IN THE CHART AND REVIEWED INCLUDING STEROIDS. SOCIAL HISTORY: Has history of marijuana use. MEDICATIONS: Given in the ER were reviewed. REVIEW OF SYSTEMS: Ten-point system obtained. Pertinent positives discussed in my history of present illness, otherwise noncontributory. All systems that were negative were reviewed as well. PHYSICAL EXAMINATION: VITAL SIGNS: Reviewed in the ER, pulse ox 95% on room air, blood pressure 161/90. GENERAL: He is able to open his jaw. He is able to communicate with difficulty. He cannot speak full sentences. He says he has difficulty in swallowing saliva. NECK: Supple. LUNGS: With clear breath sounds. CARDIOVASCULAR: With a regular rate. ABDOMEN: Soft. EXTREMITIES: With no pitting edema. LABORATORY DATA: Reviewed. Sodium 139, potassium 3.3, BUN 7 and creatinine 0.9. Chemistries are pending. IMPRESSION: 1. Acute on chronic respiratory failure in a patient who has history of hereditary angioedema and who has required intubations at least 8-10 times in the past. It should be noted that C1q esterase levels twice at 2 different hospitals have been within normal limits. He has been offered elective tracheostomies multiple times in the past. He initially agreed, but has refused prior to surgery. I think he would be a candidate for elective tracheostomy. I had a long discussion with him along with Dr. Dietrich and he is agreeable to be reevaluated for tracheostomy. 2. History of factor V Leiden mutation with history of deep venous thrombosis and pulmonary embolism, on chronic apixaban. Previous factor V Leiden mutation level at [facility] was within normal limits. 3. Type 2 diabetes. 4. Prior history of PEG. 5. History of chronic pancreatitis, although extensive workup per GI and has a mention in the note from January admission revealed no obvious evidence of chronic pancreatitis. 6. Chronic pain syndrome with narcotic dependence. RECOMMENDATIONS: 1. I have discussed with the patient along with Dr. Dietrich in the ER and he is agreeable to be reevaluated for tracheostomy. We will consult General Surgery. 2. Pain control per Dr. Dietrich. We will reassess him in next 24 hours. It has been noted that after receiving narcotics for 24 hours, the patient usually leaves the hospital and decline tracheostomy. 3. Airway appears to be protected, no need for intubation at present. I have discussed with ER physician. 4. IV Benadryl. 5. Avoid any STEROIDS SINCE HE IS ALLERGIC TO IT. 6. Hold Eliquis in anticipation for tracheostomy. 7. Chart reviewed, imaging studies reviewed. Discussed with Dr. Dietrich and ER physician. Total critical care time [address]: Cory TID: [id number] [facility]
[2021-08-18] MEDS: fentaNYL PF VIAL 100 MCG/2 ML VIAL IVP PRN ×4 (16:16→23:30)
[2021-08-18] MEDS ORDERED: diphenhydrAMINE HCL 25 MG CAPSULE PO SCH (18:00)
[2021-08-18 20:59] LABS: PROTHROMBIN TIME PATIENT 13.3 SEC (11.7-14.0)
[2021-08-18] MEDS ORDERED: oxyCODONE ER 10 MG TAB.ER.12H PO SCH (21:00)
[2021-08-18] MEDS: diphenhydrAMINE 50 MG/ML VIAL IVP SCH (21:15)
--- NOTE | 2021-08-18 21:15 | NUR ---
Talked with Dr. Dietrich at patients request. Wanted more pain meds and Benadryl to be IV. States he can't swallow. Airway has some swelling but is not occluded.
[2021-08-19] VITALS (14 sets, daily range): BP systolic 121–162; BP diastolic 77–102
[2021-08-19] MEDS: diphenhydrAMINE 50 MG/ML VIAL IVP SCH ×3 (00:29→12:00)
[2021-08-19] MEDS: fentaNYL PF VIAL 100 MCG/2 ML VIAL IVP PRN ×8 (02:04→22:05)
--- NOTE | 2021-08-19 02:30 | EKG ---
[facility] [address] [place] [address] Test Date: 2021-08-18 Test Time: 11:25:55 Pat Name: JAY WHITE Department: Room: 104 1 Gender: M [employer]: : 1970 Requested By: MITCH AGUILA Order Number: [id number] Reading MD: Christopher Barajas MD Measurements Intervals [place] Rate: 111 P: 94 NE: 150 QRS: 18 QRSD: 86 T: 87 QT: 334 QTc: 458 Interpretive Statements SINUS TACHYCARDIA NON-SPECIFIC ST/T CHANGES BASELINE ARTIFACT Electronically Signed On 08-19-2021 9:42:14 [employer] by Christopher Barajas MD
[2021-08-19] MEDS: PANTOPRAZOLE 40 MG TABLET.DR. PO SCH (07:30)
--- NOTE | 2021-08-19 07:42 | PDOC ---
[facility] PROGRESS NOTE Date of Service DOS: DATE: 08/19/21 TIME: 07:26 Chief Complaint Chief Complaint A/P: Hereditary angioedema with acute throat swelling - He has declined to have a tracheostomy in the past. IV decadron declined, benadryl. Admitted to ICU, consult general surgery, pulmonology. Transfusion of FFP ordered for persistent symptoms previously. Previously with normal C1q esterase. Intractable abdominal pain - IV fentanyl ordered for angioedema related pain. On chronic pain medications History of polysubstance abuse History of deep venous thrombosis and pulmonary embolism in the past and HX factor V Leiden mutation for which he is on ELIQUIS. Not confirmed on laboratory studies at [facility] Narcotic dependence hx HX CVA Diabetes-Type II History of Present Illness History of Present Illness Mr Christensen is a 50-year-old male who has a history of sarcoidosis, hereditary angioedema, DVT/PE and Factor V leiden mutation with polysubstance abuse and multiple intubations for hereditary angioedema who comes to ED c/o bilateral jaw, abdominal, and scrotal pain and throat swelling. He awoke having difficulty speaking and came to ER, has acute neck pain abdominal pain scrotal pain. He reports he was unable to take his PO meds. ER unable to place IJ, femoral line placed He awoke having difficulty speaking and took IM epinephrine at home 0.3mg and had some improvement but has neck pain abdominal pain scrotal pain worsened he felt his throat closing came to the ED for further care. Given x3 additional epinephrine in ED with improvement in his perceived symptoms. Chest x-ray no infiltrates Given benadryl and fentanyl IV with improvement in his symptoms. Notes he is amenable to elective traceostomy at this time. Admitted to ICU for further care. Seen in ICU.. Improved speech improved still complains of very little out of bed scrotal neck. He is amenable to FFP transfusion. I will discuss with pulmonology prior to transfusion given historic lack of abnormal C1q esterase activity, may not benefit from FFP and risk may outweigh the benefit, already with some improvement with epi x3. Vitals/I&O Vitals/I&O: Vital Signs Date Time Temp Pulse Resp B/P (MAP) Pulse Ox O2 Delivery O2 Flow Rate FiO2 08/19/21 06:00 60 12 134/86 (102) Room Air 08/19/21 05:13 96 08/19/21 04:00 98.0 98.0 I & O 08/18/21 08/18/21 08/19/21 15:00 23:00 07:00 Intake Total 0 ml Output Total 250 ml 380 ml Balance -250 ml -380 ml Physical Exam General: Alert, Cooperative, moderate distress, Other Lungs: Clear Abdomen: Soft Extremities: Normal pulses Skin: No significant lesion, Other Labs Labs: Laboratory Tests Test 08/18/21 12:45 08/18/21 20:40 Sodium Level 139 mmol/L (136-145) Potassium Level 3.3 mmol/L (3.5-5.1) Chloride Level 104 mmol/L (98-107) Carbon Dioxide Level 29 mmol/L (21-32) Anion Gap 6 (6-14) Blood Urea Nitrogen 7 mg/dL (8-26) Creatinine 0.9 mg/dL (0.7-1.3) Estimated GFR (Cockcroft-Gault) 107.2 BUN/Creatinine Ratio 8 (6-20) Glucose Level 122 mg/dL (70-99) Calcium Level 8.6 mg/dL (8.5-10.1) Total Bilirubin 0.3 mg/dL (0.2-1.0) Aspartate Amino Transf (AST/SGOT) 14 U/L (15-37) Alanine Aminotransferase (ALT/SGPT) 17 U/L (16-63) Alkaline Phosphatase 124 U/L (46-116) Total Protein 7.1 g/dL (6.4-8.2) Albumin 3.4 g/dL (3.4-5.0) Albumin/Globulin Ratio 0.9 (1.0-1.7) Prothrombin Time 13.3 SEC (11.7-14.0) Prothromb Time International Ratio 1.0 (0.8-1.1) Activated Partial Thromboplast Time 33 SEC (24-38) Assessment and Plan Assessmemt and Plan Problems Medical Problems: (1) Hereditary angioedema Status: Acute Comment Review of Relevant I have reviewed the following items wandy (where applicable) has been applied. Medications: Current Medications Medications (Trade) Dose Ordered Sig/Shane Route PRN Reason Start Time Stop Time Status Last Admin Dose Admin Epinephrine HCl (Adrenalin) 0.3 mg 1X ONCE IM 08/18/21 11:30 08/18/21 11:31 DC 08/18/21 11:33 Diphenhydramine HCl (Benadryl) 50 mg 1X ONCE IM 08/18/21 11:30 08/18/21 11:31 DC 08/18/21 11:34 Epinephrine HCl (Adrenalin) 0.3 mg 1X ONCE SQ 08/18/21 11:45 08/18/21 11:46 DC 08/18/21 11:43 Epinephrine HCl (Adrenalin) 0.3 mg 1X ONCE SQ 08/18/21 11:45 08/18/21 11:46 DC 08/18/21 12:14 Fentanyl Citrate (Fentanyl 2ml Vial) 75 mcg 1X ONCE IM 08/18/21 12:30 08/18/21 12:31 DC 08/18/21 12:02 Midazolam HCl (Versed) 2 mg 1X ONCE IM 08/18/21 12:30 08/18/21 12:31 DC 08/18/21 12:27 Diphenhydramine HCl (Benadryl) 50 mg 1X ONCE IVP 08/18/21 14:45 08/18/21 14:46 DC 08/18/21 16:18 Fentanyl Citrate (Fentanyl 2ml Vial) 25 mcg PRN Q2HR PRN IVP PAIN 08/18/21 15:30 08/18/21 21:03 DC 08/18/21 20:44 Diphenhydramine HCl (Benadryl) 50 mg Q6HRS IVP 08/18/21 21:30 08/19/21 00:29 Fentanyl Citrate (Fentanyl 2ml Vial) 100 mcg PRN Q2HR PRN IVP SEVERE PAIN 7-10 08/18/21 21:00 08/19/21 04:43 Justifications for Admission Other Justification ANGIOEDEMA HATTIE PETERSON MD Aug 19, 2021 07:42
[2021-08-19] MEDS ORDERED: EPINEPHrine 1 MG/ML VIAL IM PRN (07:45)
[2021-08-19] MEDS ORDERED: SENNOSIDES/DOCUSATE 8.6/50MG TABLET. PO PRN (08:15)
[2021-08-19] MEDS: POLYETHYLENE GLYCOL 3350 17 GM PACKET. PO SCH (09:00)
[2021-08-19] MEDS: oxyCODONE ER 10 MG TAB.ER.12H PO SCH ×2 (09:00→21:00)
--- NOTE | 2021-08-19 10:33 | PDOC ---
PULMONARY PROGRESS NOTES DATE: 08/19/21 TIME: 10:30 Subjective Patient is able to speak full sentences. Patient is demanding to leave AGAINST MEDICAL ADVICE if his pain needs are not addressed. Vitals Vital Signs Date Time Temp Pulse Resp B/P (MAP) Pulse Ox O2 Delivery O2 Flow Rate FiO2 08/19/21 07:44 14 97 Room Air 08/19/21 06:00 60 134/86 (102) 08/19/21 04:00 98.0 98.0 General: Alert, No acute distress Lungs: Clear Cardiovascular: S1, S2 Abdomen: Soft, Non-tender Extremities: No Edema Skin: Warm Labs Laboratory Tests Test 08/18/21 12:45 08/18/21 20:40 Sodium Level 139 mmol/L (136-145) Potassium Level 3.3 mmol/L (3.5-5.1) Chloride Level 104 mmol/L (98-107) Carbon Dioxide Level 29 mmol/L (21-32) Anion Gap 6 (6-14) Blood Urea Nitrogen 7 mg/dL (8-26) Creatinine 0.9 mg/dL (0.7-1.3) Estimated GFR (Cockcroft-Gault) 107.2 BUN/Creatinine Ratio 8 (6-20) Glucose Level 122 mg/dL (70-99) Calcium Level 8.6 mg/dL (8.5-10.1) Total Bilirubin 0.3 mg/dL (0.2-1.0) Aspartate Amino Transf (AST/SGOT) 14 U/L (15-37) Alanine Aminotransferase (ALT/SGPT) 17 U/L (16-63) Alkaline Phosphatase 124 U/L (46-116) Total Protein 7.1 g/dL (6.4-8.2) Albumin 3.4 g/dL (3.4-5.0) Albumin/Globulin Ratio 0.9 (1.0-1.7) Prothrombin Time 13.3 SEC (11.7-14.0) Prothromb Time International Ratio 1.0 (0.8-1.1) Activated Partial Thromboplast Time 33 SEC (24-38) Laboratory Tests Test 08/18/21 12:45 08/18/21 20:40 Sodium Level 139 mmol/L (136-145) Potassium Level 3.3 mmol/L (3.5-5.1) Chloride Level 104 mmol/L (98-107) Carbon Dioxide Level 29 mmol/L (21-32) Anion Gap 6 (6-14) Blood Urea Nitrogen 7 mg/dL (8-26) Creatinine 0.9 mg/dL (0.7-1.3) Estimated GFR (Cockcroft-Gault) 107.2 BUN/Creatinine Ratio 8 (6-20) Glucose Level 122 mg/dL (70-99) Calcium Level 8.6 mg/dL (8.5-10.1) Total Bilirubin 0.3 mg/dL (0.2-1.0) Aspartate Amino Transf (AST/SGOT) 14 U/L (15-37) Alanine Aminotransferase (ALT/SGPT) 17 U/L (16-63) Alkaline Phosphatase 124 U/L (46-116) Total Protein 7.1 g/dL (6.4-8.2) Albumin 3.4 g/dL (3.4-5.0) Albumin/Globulin Ratio 0.9 (1.0-1.7) Prothrombin Time 13.3 SEC (11.7-14.0) Prothromb Time International Ratio 1.0 (0.8-1.1) Activated Partial Thromboplast Time 33 SEC (24-38) Medications Active Scripts Medications Dose Route/Sig Max Daily Dose Days Date Category Promethazine Hcl 25 Mg Tablet 25 Mg PO PRN BID PRN 09/16/20 Reported Percocet 10-325 Mg Tablet (Oxycodone/Acetaminophen) 1 Each Tablet 2 Tab PO PRN Q4-6HRS PRN 09/13/19 Reported Oxycontin (Oxycodone HCl) 10 Mg Tab.er.12h 10 Mg PO BID 09/13/19 Reported Benadryl (Diphenhydramine Hcl) 25 Mg Capsule 50 Mg PO Q6HRS 09/13/19 Reported Eliquis (Apixaban) 5 Mg Tablet 5 Mg PO DAILY 09/13/19 Reported Protonix (Pantoprazole Sodium) 40 Mg Tablet.dr 40 Mg PO DAILYAC 09/13/19 Reported Epipen (Epinephrine) 0.3 Mg/0.3 Ml Auto.injct 0.3 Mg IM UD 09/13/19 Reported Impression . IMPRESSION: 1. Acute on chronic respiratory failure in a patient who has history of hereditary angioedema and who has required intubations at least 8-10 times in the past. It should be noted that C1q esterase levels twice at 2 different hospitals have been within normal limits. He has been offered elective tracheostomies multiple times in the past. He initially agreed, but has refused prior to surgery. I think he would be a candidate for elective tracheostomy. I had a long discussion with him along with Dr. Dietrich and he is agreeable to be reevaluated for tracheostomy. 2. History of factor V Leiden mutation with history of deep venous thrombosis and pulmonary embolism, on chronic apixaban. Previous factor V Leiden mutation level at [facility] was within normal limits. 3. Type 2 diabetes. 4. Prior history of PEG. 5. History of chronic pancreatitis, although extensive workup per GI and has a mention in the note from January admission revealed no obvious evidence of chronic pancreatitis. 6. Chronic pain syndrome with narcotic dependence. Plan . 1. Patient's respiratory status is stable. He is able to speak full sentences. 2. Patient is demanding more narcotics IV at a much higher doses. He is threa tening to leave AGAINST MEDICAL ADVICE if his pain needs are not addressed. Tracheostomy has been tentatively scheduled for tomorrow at noon. I have discussed with Dr. Smith. There is a very likely chance that patient will leave the hospital prior to surgical procedure. 3. Airway appears to be well protected, 5. Avoid any STEROIDS SINCE HE IS ALLERGIC TO IT. 6. Hold Eliquis in anticipation for tracheostomy. 7. Discussed with Dr. Kam. He will readdress doses of pain medications with the patient. Discussed with TEGAN ZHOU MD Aug 19, 2021 10:33
[2021-08-19] MEDS: oxyCODONE/APAP 10/325 1 TAB TABLET PO PRN ×3 (10:36→23:22)
--- NOTE | 2021-08-19 10:43 | NUR ---
Fentanyl order decreased to 25 mcg q 2 hours. Patient given that 25 mcg by Enmanuel, patient immediately questioned why his dose was changed, complained that it won't work to help with his pain, said to call Dr. Corbin and have him come down to talk to him. Within 10 minutes, patient pressed call light 3 times complaining about the dose of the pain medication dose, said we "are not helping him or being a good advocate for him or his pain and just want him to leave AMA". PO Percocet offered to him now that his voice is clearly stronger with no obvious swelling, every time it was offered he said he "didn't want his normal pain medication, it clearly won't work, I want to talk to my doctor". Notified Dr. Corbin, said he will be down shortly to talk to the patient as he was in the middle of something. Notified the patient. Eventually the patient agreed to taking the Percocet, which he swallowed with Jello without coughing or pain.
[2021-08-19] MEDS: diphenhydrAMINE HCL 25 MG CAPSULE PO PRN ×3 (12:27→23:21)
--- NOTE | 2021-08-19 14:18 | NUR ---
SS following for discharge planning. SS reviewed pt chart and discussed with pt RN. Pt is from home and is currently on room air. Tentative trach placement scheduled for noon tomorrow. Pt threatening to leave AMA if pain needs are not addressed. Jaiden from PAT team met with pt. Pt provided with referrals to [facility], [facility], and [facility]. SS will continue to follow for discharge planning.
--- NOTE | 2021-08-19 15:27 | RAD ---
XR NECK SOFT TISSUE History: Reason: Perceived neck swelling / Spl. Instructions: / History: Technique: 2 views neck soft tissues. Comparison: None. Findings: Degraded evaluation due to patient body habitus. Normal prevertebral soft tissue thickness. Normal ap pearance of the epiglottis. Straightening of the cervical spine. Mild cervical spondylosis. Impression: 1. Degraded evaluation. 2. No radiographic evidence of acute pathology within the neck soft tissues. Electronically signed by: Bobo Hopkins DO (08/19/2021 3:25 PM) [id number]
--- NOTE | 2021-08-19 18:34 | PDOC2 ---
CONSULT Date of Consult Date of Consult DATE: 08/19/21 TIME: 18:22 Reason for Consult Reason for Consult: angioedema Referring Physician Referring Physician: Dr. Romero Identification/Chief Complaint Chief Complaint difficulty breathing Source Source: Chart review, Patient History of Present Illness Reason for Visit: 51 yo M with multiple admissions for angioedema. He has considered tracheostomy previously. He has c/o abd pain and some difficulty swallowing. Past Medical History Pulmonary: Bronchitis GI: No pertinent hx Heme/Onc: Anemia NOS, Other ENT: No pertinent hx Renal/: No pertinent hx Past Surgical History Past Surgical History: Other Family History Family History: No Significant, Hypertension Social History No ALCOHOL: none Drugs: Marijuana, Other Current Problem List Problem List Problems Medical Problems: (1) Hereditary angioedema Status: Acute Current Medications Current Medications Current Medications Diphenhydramine HCl (Benadryl) 50 mg 1X ONCE IV ; Start 08/18/21 at 11:30; Stop 08/18/21 at 11:31; Status Cancel Famotidine (Pepcid Vial) 20 mg 1X ONCE IVP ; Start 08/18/21 at 11:30; Stop 08/18/21 at 11:31; Status Cancel Epinephrine HCl (Adrenalin) 0.3 mg 1X ONCE IM Last administered on 08/18/21at 11:33; Start 08/18/21 at 11:30; Stop 08/18/21 at 11:31; Status DC Sodium Chloride 1,000 ml @ 1,000 mls/hr Q1H IV ; Start 08/18/21 at 11:30; Stop 08/18/21 at 12:29; Status DC Dexamethasone Sodium Phosphate (Decadron) 10 mg 1X ONCE IV ; Start 08/18/21 at 11:30; Stop 08/18/21 at 11:31; Status Cancel Diphenhydramine HCl (Benadryl) 50 mg 1X ONCE IM Last administered on 08/18/21at 11:34; Start 08/18/21 at 11:30; Stop 08/18/21 at 11:31; Status DC Dexamethasone Sodium Phosphate (Decadron) 12 mg 1X ONCE IM ; Start 08/18/21 at 11:30; Stop 08/19/21 at 07:26; Status DC Epinephrine HCl (Adrenalin) 0.3 mg 1X ONCE SQ Last administered on 08/18/21at 11:43; Start 08/18/21 at 11:45; Stop 08/18/21 at 11:46; Status DC Epinephrine HCl (Adrenalin) 0.3 mg 1X ONCE SQ Last administered on 08/18/21at 12:14; Start 08/18/21 at 11:45; Stop 08/18/21 at 11:46; Status DC Fentanyl Citrate (Fentanyl 2ml Vial) 75 mcg 1X ONCE IVP ; Start 08/18/21 at 11:45; Stop 08/18/21 at 11:46; Status DC Fentanyl Citrate (Fentanyl 2ml Vial) 75 mcg 1X ONCE IM Last administered on 08/18/21at 12:02; Start 08/18/21 at 12:30; Stop 08/18/21 at 12:31; Status DC Midazolam HCl (Versed) 2 mg STK-MED ONCE .ROUTE ; Start 08/18/21 at 12:22; Stop 08/18/21 at 12:23; Status DC Midazolam HCl (Versed) 2 mg 1X ONCE IM Last administered on 08/18/21at 12:27; Start 08/18/21 at 12:30; Stop 08/18/21 at 12:31; Status DC Diphenhydramine HCl (Benadryl) 50 mg Q6HRS PO ; Start 08/18/21 at 18:00; Stop 08/18/21 at 21:04; Status DC Oxycodone HCl (OxyCONTIN) 10 mg BID PO ; Start 08/18/21 at 21:00; Stop 08/18/21 at 21:03; Status DC Oxycodone/ Acetaminophen (Percocet 10/325) 2 tab PRN Q4HRS PRN PO PAIN Last administered on 08/19/21at 16:30; Start 08/18/21 at 13:45 Pantoprazole Sodium (Protonix) 40 mg DAILYAC PO ; Start 08/19/21 at 07:30 Diphenhydramine HCl (Benadryl) 50 mg 1X ONCE IVP Last administered on 08/18/21at 16:18; Start 08/18/21 at 14:45; Stop 08/19/21 at 12:12; Status DC Lorazepam (Ativan Inj) 2 mg 1X ONCE IVP ; Start 08/18/21 at 14:45; Stop 08/18/21 at 14:46; Status DC Fentanyl Citrate (Fentanyl 2ml Vial) 100 mcg PRN Q2HR PRN IVP PAIN; Start 08/18/21 at 14:45; Stop 08/18/21 at 15:18; Status DC Fentanyl Citrate (Fentanyl 2ml Vial) 25 mcg PRN Q2HR PRN IVP PAIN Last administered on 08/18/21at 20:44; Start 08/18/21 at 15:30; Stop 08/18/21 at 21:03; Status DC Diphenhydramine HCl (Benadryl) 50 mg Q6HRS IVP Last administered on 08/19/21at 07:44; Start 08/18/21 at 21:30; Stop 08/19/21 at 13:11; Status DC Fentanyl Citrate (Fentanyl 2ml Vial) 100 mcg PRN Q2HR PRN IVP SEVERE PAIN 7-10 Last administered on 08/19/21at 07:44; Start 08/18/21 at 21:00; Stop 08/19/21 at 08:15; Status DC Epinephrine HCl (Adrenalin) 0.3 mg PRN Q5MIN PRN IM ALLERGIC REACTION; Start 08/19/21 at 07:45 Fentanyl Citrate (Fentanyl 2ml Vial) 25 mcg PRN Q2HR PRN IVP SEVERE PAIN 7-10 Last administered on 08/19/21at 15:17; Start 08/19/21 at 08:15; Stop 08/19/21 at 16:15; Status DC Senna/Docusate Sodium (Senna Plus) 2 tab PRN BID PRN PO CONSTIPATION; Start 08/19/21 at 08:15 Polyethylene Glycol (miraLAX PACKET) 17 gm DAILY PO ; Start 08/19/21 at 09:00 Psyllium Hydrophilic Mucilloid (Metamucil Fiber Packet) 1 pkt QHS PO ; Start 08/19/21 at 21:00 Oxycodone HCl (OxyCONTIN) 10 mg Q12HR PO ; Start 08/19/21 at 09:00 Diphenhydramine HCl (Benadryl) 50 mg PRN Q6HRS PRN PO ITCHING Last administered on 08/19/21at 16:29; Start 08/19/21 at 12:15 Fentanyl Citrate (Fentanyl 2ml Vial) 25 mcg PRN Q5MIN PRN IVP MILD PAIN 1-3; Start 08/20/21 at 06:00; Stop 08/21/21 at 05:59 Fentanyl Citrate (Fentanyl 2ml Vial) 50 mcg PRN Q5MIN PRN IVP MODERATE PAIN 4- 6; Start 08/20/21 at 06:00; Stop 08/21/21 at 05:59 Morphine Sulfate (Morphine Sulfate) 1 mg PRN Q10MIN PRN IVP SEVERE PAIN 7-10; Start 08/20/21 at 06:00; Stop 08/21/21 at 05:59 Ringer's Solution 1,000 ml @ 30 mls/hr Q24H IV ; Start 08/20/21 at 06:00; Stop 08/20/21 at 17:59 Hydromorphone HCl (Dilaudid) 0.5 mg PRN Q10MIN PRN IVP SEVERE PAIN 7-10, 2nd CHOICE; Start 08/20/21 at 06:00; Stop 08/21/21 at 05:59 Prochlorperazine Edisylate (Compazine) 5 mg PACU PRN PRN IVP NAUSEA, MRX1; Start 08/20/21 at 06:00; Stop 08/21/21 at 05:59; Status Cancel Fentanyl Citrate (Fentanyl 2ml Vial) 50 mcg PRN Q2HR PRN IVP SEVERE PAIN 7-10 Last administered on 08/19/21at 17:31; Start 08/19/21 at 16:15; Stop 08/21/21 at 16:14 Active Scripts Active Reported Promethazine Hcl 25 Mg Tablet 25 Mg PO PRN BID PRN Percocet 10-325 Mg Tablet (Oxycodone/Acetaminophen) 1 Each Tablet 2 Tab PO PRN Q4-6HRS PRN Oxycontin (Oxycodone HCl) 10 Mg Tab.er.12h 10 Mg PO BID Benadryl (Diphenhydramine Hcl) 25 Mg Capsule 50 Mg PO Q6HRS Eliquis (Apixaban) 5 Mg Tablet 5 Mg PO DAILY Protonix (Pantoprazole Sodium) 40 Mg Tablet.dr 40 Mg PO DAILYAC Epipen (Epinephrine) 0.3 Mg/0.3 Ml Auto.injct 0.3 Mg IM UD Allergies Allergies: Coded Allergies: iodine (Verified Allergy, Severe, 09/15/19) metoclopramide (Verified Allergy, Severe, 09/15/19) ondansetron (Verified Allergy, Severe, ANAPHYLAXIS, 09/15/19) prochlorperazine (Verified Allergy, Severe, 09/16/20) Corticosteroids (Glucocorticoids) (Verified Allergy, Intermediate, MAKES HIM SICK, 08/18/21) NSAIDS (Non-Steroidal Anti-Inflamma (Verified Allergy, Intermediate, 09/15/19) aspirin (Verified Allergy, Intermediate, 09/15/19) morphine (Verified Allergy, Intermediate, 09/15/19) prednisone (Verified Allergy, Intermediate, 09/15/19) ROS Gastrointestinal: Yes Abdominal Pain Physical Exam General: Alert, Oriented X3, Cooperative, mild distress HEENT: Atraumatic, Other (thickening of the neck) Lungs: Normal air movement Abdomen: Soft, Other (diffuse TTP mild) Extremities: No clubbing, No cyanosis Skin: No rashes, No breakdown Neuro: Normal speech Vitals VITALS Vital Signs Date Time Temp Pulse Resp B/P (MAP) Pulse Ox O2 Delivery O2 Flow Rate FiO2 08/19/21 12:57 18 Room Air 08/19/21 12:27 98 08/19/21 11:00 161/98 (119) 08/19/21 10:00 79 08/19/21 08:00 98.5 98.5 Labs Labs Laboratory Tests Test 08/18/21 12:45 08/18/21 20:40 Sodium Level 139 mmol/L (136-145) Potassium Level 3.3 mmol/L (3.5-5.1) Chloride Level 104 mmol/L (98-107) Carbon Dioxide Level 29 mmol/L (21-32) Anion Gap 6 (6-14) Blood Urea Nitrogen 7 mg/dL (8-26) Creatinine 0.9 mg/dL (0.7-1.3) Estimated GFR (Cockcroft-Gault) 107.2 BUN/Creatinine Ratio 8 (6-20) Glucose Level 122 mg/dL (70-99) Calcium Level 8.6 mg/dL (8.5-10.1) Total Bilirubin 0.3 mg/dL (0.2-1.0) Aspartate Amino Transf (AST/SGOT) 14 U/L (15-37) Alanine Aminotransferase (ALT/SGPT) 17 U/L (16-63) Alkaline Phosphatase 124 U/L (46-116) Total Protein 7.1 g/dL (6.4-8.2) Albumin 3.4 g/dL (3.4-5.0) Albumin/Globulin Ratio 0.9 (1.0-1.7) Prothrombin Time 13.3 SEC (11.7-14.0) Prothromb Time International Ratio 1.0 (0.8-1.1) Activated Partial Thromboplast Time 33 SEC (24-38) Laboratory Tests Test 08/18/21 20:40 Prothrombin Time 13.3 SEC (11.7-14.0) Prothromb Time International Ratio 1.0 (0.8-1.1) Activated Partial Thromboplast Time 33 SEC (24-38) Assessment/Plan Assessment/Plan angioedema will tentatively plan trach in AM d/w Pulmonary Thanks for consult! EVANS HIGUERA MD Aug 19, 2021 18:34
[2021-08-19] MEDS: PSYLLIUM HUSK (SUGAR FREE) 1 PKT PACKET PO SCH (21:00)
[2021-08-20] MEDS: fentaNYL PF VIAL 100 MCG/2 ML VIAL IVP PRN ×10 (00:31→21:48)
[2021-08-20 03:00] VITALS: BP 111/77
[2021-08-20] MEDS ORDERED: IV RINGERS,LACTATED 1000ML 1,000 ML IV SCH ×2 (06:00→07:30)
[2021-08-20] MEDS ORDERED: HYDROmorphone 2 MG/ML VIAL IVP PRN (06:00)
[2021-08-20] MEDS ORDERED: PROCHLORPERAZINE 10 MG/2 ML VIAL. IVP PRN (06:00)
[2021-08-20] MEDS ORDERED: MORPHINE SULFATE 2 MG/ML INJ. IVP PRN (06:00)
[2021-08-20] MEDS ORDERED: fentaNYL PF VIAL 100 MCG/2 ML VIAL IVP PRN ×2 (06:00)
[2021-08-20] MEDS: diphenhydrAMINE HCL 25 MG CAPSULE PO PRN ×4 (06:09→23:57)
[2021-08-20] MEDS: oxyCODONE/APAP 10/325 1 TAB TABLET PO PRN ×4 (06:10→23:57)
[2021-08-20] MEDS: PANTOPRAZOLE 40 MG TABLET.DR. PO SCH (07:30)
--- NOTE | 2021-08-20 07:39 | PDOC ---
[employer] PROGRESS NOTE Date of Service DOS: DATE: 08/20/21 TIME: 07:36 Chief Complaint Chief Complaint A/P: Hereditary angioedema with acute throat swelling - He has declined to have a tracheostomy in the past. IV decadron declined, benadryl. Admitted to ICU, consult general surgery, pulmonology. Transfusion of FFP ordered for persistent symptoms previously. Previously with normal C1q esterase. Intractable abdominal pain - IV fentanyl ordered for angioedema related pain. On chronic pain medications History of polysubstance abuse History of deep venous thrombosis and pulmonary embolism in the past and HX factor V Leiden mutation for which he is on ELIQUIS. Not confirmed on laboratory studies at [facility] Narcotic dependence hx HX CVA Diabetes-Type II History of Present Illness History of Present Illness Mr Christensen is a 50-year-old male who has a history of sarcoidosis, hereditary angioedema, DVT/PE and Factor V leiden mutation with polysubstance abuse and multiple intubations for hereditary angioedema who comes to ED c/o bilateral jaw, abdominal, and scrotal pain and throat swelling. He awoke having difficulty speaking and came to ER, has acute neck pain abdominal pain scrotal pain. He reports he was unable to take his PO meds. ER unable to place IJ, femoral line placed He awoke having difficulty speaking and took IM epinephrine at home 0.3mg and had some improvement but has neck pain abdominal pain scrotal pain worsened he felt his throat closing came to the ED for further care. Given x3 additional epinephrine in ED with improvement in his perceived symptoms. Chest x-ray no infiltrates Given benadryl and fentanyl IV with improvement in his symptoms. Notes he is amenable to elective traceostomy at this time. Admitted to ICU for further care. 08/19: Seen in ICU.. Improved speech improved still complains of very little out of bed scrotal neck. He is amenable to FFP transfusion. I will discuss with pulmonology prior to transfusion given historic lack of abnormal C1q esterase activity, may not benefit from FFP and risk may outweigh the benefit, already with some improvement with epi x3. He notes he has been on opioids since he was 7 years old abdominal scrotal and neck pain and feels medical staff do not believe with his medical history. Counseled him on drug-seeking behavior and noted chronic opioid dependence is medical condition for which she is still being given prescription for opioids I offered outpatient Suboxone therapy and he has met with PAT nurse liaison No overnight events. Pain well controlled though he still requiring IV fentanyl. He is very anxious about tracheostomy today. No chest pain or shortness of breath but does have abdominal pain mild scrotal pain and swelling. Will order labs pre-operatively Vitals/I&O Vitals/I&O: Vital Signs Date Time Temp Pulse Resp B/P (MAP) Pulse Ox O2 Delivery O2 Flow Rate FiO2 08/20/21 07:05 18 96 Room Air 08/20/21 03:00 98.0 76 111/77 (88) 98.0 I & O 08/19/21 08/19/21 08/20/21 15:00 23:00 07:00 Intake Total 0 ml 10 ml 440 ml Output Total 120 ml 0 ml 200 ml Balance -120 ml 10 ml 240 ml Physical Exam General: Alert, Oriented X3, Cooperative, mild distress Lungs: Clear Abdomen: Soft, Other (diffuse TTP mild) Extremities: No clubbing, No cyanosis Skin: No rashes, No breakdown Assessment and Plan Assessmemt and Plan Problems Medical Problems: (1) Hereditary angioedema Status: Acute Comment Review of Relevant I have reviewed the following items wandy (where applicable) has been applied. Medications: Current Medications Medications (Trade) Dose Ordered Sig/Shane Route PRN Reason Start Time Stop Time Status Last Admin Dose Admin Fentanyl Citrate (Fentanyl 2ml Vial) 25 mcg PRN Q2HR PRN IVP SEVERE PAIN 7-10 08/19/21 08:15 08/19/21 16:15 DC 08/19/21 15:17 Diphenhydramine HCl (Benadryl) 50 mg PRN Q6HRS PRN PO ITCHING 08/19/21 12:15 08/20/21 06:09 Fentanyl Citrate (Fentanyl 2ml Vial) 50 mcg PRN Q5MIN PRN IVP MODERATE PAIN 4-6 08/20/21 06:00 08/21/21 05:59 08/19/21 20:01 Fentanyl Citrate (Fentanyl 2ml Vial) 50 mcg PRN Q2HR PRN IVP SEVERE PAIN 7-10 08/19/21 16:15 08/21/21 16:14 08/20/21 07:05 Justifications for Admission Other Justification ANGIOEDEMA HATTIE PETERSON MD Aug 20, 2021 07:39
--- NOTE | 2021-08-20 07:57 | PDOC ---
PULMONARY PROGRESS NOTES DATE: 08/20/21 TIME: 07:55 Subjective Patient resting on room air no overnight concerns planned for trach at noon today Vitals Vital Signs Date Time Temp Pulse Resp B/P (MAP) Pulse Ox O2 Delivery O2 Flow Rate FiO2 08/20/21 07:05 18 96 Room Air 08/20/21 03:00 98.0 76 111/77 (88) 98.0 ROS: No Nausea, No Chest Pain, No Abdominal Pain, No Increase Cough General: Alert, No acute distress Lungs: Clear Cardiovascular: S1, S2 Abdomen: Soft, Non-tender Extremities: No Edema Skin: Warm Labs Laboratory Tests Test 08/18/21 12:45 08/18/21 20:40 Sodium Level 139 mmol/L (136-145) Potassium Level 3.3 mmol/L (3.5-5.1) Chloride Level 104 mmol/L (98-107) Carbon Dioxide Level 29 mmol/L (21-32) Anion Gap 6 (6-14) Blood Urea Nitrogen 7 mg/dL (8-26) Creatinine 0.9 mg/dL (0.7-1.3) Estimated GFR (Cockcroft-Gault) 107.2 BUN/Creatinine Ratio 8 (6-20) Glucose Level 122 mg/dL (70-99) Calcium Level 8.6 mg/dL (8.5-10.1) Total Bilirubin 0.3 mg/dL (0.2-1.0) Aspartate Amino Transf (AST/SGOT) 14 U/L (15-37) Alanine Aminotransferase (ALT/SGPT) 17 U/L (16-63) Alkaline Phosphatase 124 U/L (46-116) Total Protein 7.1 g/dL (6.4-8.2) Albumin 3.4 g/dL (3.4-5.0) Albumin/Globulin Ratio 0.9 (1.0-1.7) Prothrombin Time 13.3 SEC (11.7-14.0) Prothromb Time International Ratio 1.0 (0.8-1.1) Activated Partial Thromboplast Time 33 SEC (24-38) Medications Active Scripts Medications Dose Route/Sig Max Daily Dose Days Date Category Promethazine Hcl 25 Mg Tablet 25 Mg PO PRN BID PRN 09/16/20 Reported Percocet 10-325 Mg Tablet (Oxycodone/Acetaminophen) 1 Each Tablet 2 Tab PO PRN Q4-6HRS PRN 09/13/19 Reported Oxycontin (Oxycodone HCl) 10 Mg Tab.er.12h 10 Mg PO BID 09/13/19 Reported Benadryl (Diphenhydramine Hcl) 25 Mg Capsule 50 Mg PO Q6HRS 09/13/19 Reported Eliquis (Apixaban) 5 Mg Tablet 5 Mg PO DAILY 09/13/19 Reported Protonix (Pantoprazole Sodium) 40 Mg Tablet.dr 40 Mg PO DAILYAC 09/13/19 Reported Epipen (Epinephrine) 0.3 Mg/0.3 Ml Auto.injct 0.3 Mg IM UD 09/13/19 Reported Impression . IMPRESSION: 1. Acute on chronic respiratory failure in a patient who has history of hereditary angioedema and who has required intubations at least 8-10 times in the past. It should be noted that C1q esterase levels twice at 2 different hospitals have been within normal limits. He has been offered elective tracheostomies multiple times in the past. He initially agreed, but has refused prior to surgery. I think he would be a candidate for elective tracheostomy. 2. History of factor V Leiden mutation with history of deep venous thrombosis and pulmonary embolism, on chronic apixaban. Previous factor V Leiden mutation level at [facility] was within normal limits. 3. Type 2 diabetes. 4. Prior history of PEG. 5. History of chronic pancreatitis, although extensive workup per GI and has a mention in the note from [facility] admission revealed no obvious evidence of chronic pancreatitis. 6. Chronic pain syndrome with narcotic dependence. Plan . 1. Patient's respiratory status is stable. remains on room air 2. Pain management per PCP 3. Airway appears to be well protected, 5. Avoid any STEROIDS SINCE HE IS ALLERGIC TO IT. 6. Hold Eliquis in anticipation for tracheostomy, planned for trach today at noon --follow surgery recs 7. Discussed with Dr. Kam. Discussed with TEGAN ZHOU MD Aug 20, 2021 07:57
[2021-08-20 09:00] VITALS: BP 128/86
[2021-08-20] MEDS: oxyCODONE ER 10 MG TAB.ER.12H PO SCH ×2 (09:00→20:54)
[2021-08-20] MEDS: POLYETHYLENE GLYCOL 3350 17 GM PACKET. PO SCH (09:00)
[2021-08-20 09:31] LABS: BASO # 0.1 x10^3/uL (0.0-0.2); BASO % 2 % (0-3); EOS # 0.4 x10^3/uL (0.0-0.7); EOS % 13 % (0-3); HEMATOCRIT 35.5 % (39.0-53.0); HEMOGLOBIN 11.8 g/dL (13.0-17.5); LYMPH % 33 % (24-48); MEAN CORPUSCULAR HEMOGLOBIN 28 pg (25-35); MEAN CORPUSCULAR HGB CONC 33 g/dL (31-37); MEAN CORPUSCULAR VOLUME 85 fL (79-100); MONO # 0.5 x10^3/uL (0.0-1.1); MONO % 15 % (0-9); NEUT # 1.2 x10^3/uL (1.8-7.7); NEUT % 39 % (31-73); PLATELET COUNT 229 x10^3/uL (140-400); RED BLOOD COUNT 4.17 x10^6/uL (4.30-5.70); RED CELL DISTRIBUTION WIDTH 16.2 % (11.5-14.5); WHITE BLOOD COUNT 3.2 x10^3/uL (4.0-11.0)
[2021-08-20 09:45] LABS: PROTHROMBIN TIME PATIENT 13.4 SEC (11.7-14.0)
[2021-08-20 09:47] LABS: ALBUMIN 3.1 g/dL (3.4-5.0); ALBUMIN/GLOBULIN RATIO 0.8 (1.0-1.7); CALCIUM 8.4 mg/dL (8.5-10.1); CREATININE 0.8 mg/dL (0.7-1.3); GFR 122.8; MAGNESIUM 1.7 mg/dL (1.8-2.4); POTASSIUM 3.6 mmol/L (3.5-5.1); TOTAL BILIRUBIN 0.4 mg/dL (0.2-1.0); TOTAL PROTEIN 7.1 g/dL (6.4-8.2)
--- NOTE | 2021-08-20 10:46 | NUR ---
SS following up with discharge planning. SS reviewed pt chart and discussed with pt RN. Pt is currently on room air. Trach placement tentatively scheduled for noon today. LTACH discussed with physician. SS was informed that pt has [place] Medicaid. Referral phoned and faxed to [facility] in [place], [place], ; fax [phone]. SS will continue to follow for discharge planning. Addendum: 08/20/21 at [address] Taylor met with pt and pt signed consents for trach. SS notified that trach now scheduled for tomorrow.
[2021-08-20 11:00] VITALS: BP 141/90
--- NOTE | 2021-08-20 11:08 | PDOC ---
SURGICAL PROGRESS NOTE DATE: 08/20/21 TIME: 11:05 Subjective Pt without new c/o, nervous about tracheostomy Vital Signs Vital Signs Date Time Temp Pulse Resp B/P (MAP) Pulse Ox O2 Delivery O2 Flow Rate FiO2 08/20/21 09:57 96 Room Air 08/20/21 09:00 98.2 16 128/86 (100) 98.2 08/20/21 03:00 76 I&O Intake and Output 08/20/21 07:00 Intake Total 450 ml Output Total 320 ml Balance 130 ml Intake Oral 450 ml Output Urine Total 320 ml # Voids 1 General: Alert, Oriented X3, Cooperative, No acute distress HEENT: Atraumatic, Other (neck supple) Labs Laboratory Tests Test 08/18/21 12:45 08/18/21 20:40 08/20/21 09:09 Sodium Level 139 mmol/L (136-145) 138 mmol/L (136-145) Potassium Level 3.3 mmol/L (3.5-5.1) 3.6 mmol/L (3.5-5.1) Chloride Level 104 mmol/L (98-107) 102 mmol/L (98-107) Carbon Dioxide Level 29 mmol/L (21-32) 28 mmol/L (21-32) Anion Gap 6 (6-14) 8 (6-14) Blood Urea Nitrogen 7 mg/dL (8-26) 10 mg/dL (8-26) Creatinine 0.9 mg/dL (0.7-1.3) 0.8 mg/dL (0.7-1.3) Estimated GFR (Cockcroft-Gault) 107.2 122.8 BUN/Creatinine Ratio 8 (6-20) 13 (6-20) Glucose Level 122 mg/dL (70-99) 86 mg/dL (70-99) Calcium Level 8.6 mg/dL (8.5-10.1) 8.4 mg/dL (8.5-10.1) Total Bilirubin 0.3 mg/dL (0.2-1.0) 0.4 mg/dL (0.2-1.0) Aspartate Amino Transf (AST/SGOT) 14 U/L (15-37) 17 U/L (15-37) Alanine Aminotransferase (ALT/SGPT) 17 U/L (16-63) 16 U/L (16-63) Alkaline Phosphatase 124 U/L (46-116) 114 U/L (46-116) Total Protein 7.1 g/dL (6.4-8.2) 7.1 g/dL (6.4-8.2) Albumin 3.4 g/dL (3.4-5.0) 3.1 g/dL (3.4-5.0) Albumin/Globulin Ratio 0.9 (1.0-1.7) 0.8 (1.0-1.7) Prothrombin Time 13.3 SEC (11.7-14.0) 13.4 SEC (11.7-14.0) Prothromb Time International Ratio 1.0 (0.8-1.1) 1.0 (0.8-1.1) Activated Partial Thromboplast Time 33 SEC (24-38) White Blood Count 3.2 x10^3/uL (4.0-11.0) Red Blood Count 4.17 x10^6/uL (4.30-5.70) Hemoglobin 11.8 g/dL (13.0-17.5) Hematocrit 35.5 % (39.0-53.0) Mean Corpuscular Volume 85 fL (79-100) Mean Corpuscular Hemoglobin 28 pg (25-35) Mean Corpuscular Hemoglobin Concent 33 g/dL (31-37) Red Cell Distribution Width 16.2 % (11.5-14.5) Platelet Count 229 x10^3/uL (140-400) Neutrophils (%) (Auto) 39 % (31-73) Lymphocytes (%) (Auto) 33 % (24-48) Monocytes (%) (Auto) 15 % (0-9) Eosinophils (%) (Auto) 13 % (0-3) Basophils (%) (Auto) 2 % (0-3) Neutrophils # (Auto) 1.2 x10^3/uL (1.8-7.7) Lymphocytes # (Auto) 1.0 x10^3/uL (1.0-4.8) Monocytes # (Auto) 0.5 x10^3/uL (0.0-1.1) Eosinophils # (Auto) 0.4 x10^3/uL (0.0-0.7) Basophils # (Auto) 0.1 x10^3/uL (0.0-0.2) Magnesium Level 1.7 mg/dL (1.8-2.4) Laboratory Tests Test 08/20/21 09:09 White Blood Count 3.2 x10^3/uL (4.0-11.0) Red Blood Count 4.17 x10^6/uL (4.30-5.70) Hemoglobin 11.8 g/dL (13.0-17.5) Hematocrit 35.5 % (39.0-53.0) Mean Corpuscular Volume 85 fL (79-100) Mean Corpuscular Hemoglobin 28 pg (25-35) Mean Corpuscular Hemoglobin Concent 33 g/dL (31-37) Red Cell Distribution Width 16.2 % (11.5-14.5) Platelet Count 229 x10^3/uL (140-400) Neutrophils (%) (Auto) 39 % (31-73) Lymphocytes (%) (Auto) 33 % (24-48) Monocytes (%) (Auto) 15 % (0-9) Eosinophils (%) (Auto) 13 % (0-3) Basophils (%) (Auto) 2 % (0-3) Neutrophils # (Auto) 1.2 x10^3/uL (1.8-7.7) Lymphocytes # (Auto) 1.0 x10^3/uL (1.0-4.8) Monocytes # (Auto) 0.5 x10^3/uL (0.0-1.1) Eosinophils # (Auto) 0.4 x10^3/uL (0.0-0.7) Basophils # (Auto) 0.1 x10^3/uL (0.0-0.2) Prothrombin Time 13.4 SEC (11.7-14.0) Prothromb Time International Ratio 1.0 (0.8-1.1) Sodium Level 138 mmol/L (136-145) Potassium Level 3.6 mmol/L (3.5-5.1) Chloride Level 102 mmol/L (98-107) Carbon Dioxide Level 28 mmol/L (21-32) Anion Gap 8 (6-14) Blood Urea Nitrogen 10 mg/dL (8-26) Creatinine 0.8 mg/dL (0.7-1.3) Estimated GFR (Cockcroft-Gault) 122.8 BUN/Creatinine Ratio 13 (6-20) Glucose Level 86 mg/dL (70-99) Calcium Level 8.4 mg/dL (8.5-10.1) Magnesium Level 1.7 mg/dL (1.8-2.4) Total Bilirubin 0.4 mg/dL (0.2-1.0) Aspartate Amino Transf (AST/SGOT) 17 U/L (15-37) Alanine Aminotransferase (ALT/SGPT) 16 U/L (16-63) Alkaline Phosphatase 114 U/L (46-116) Total Protein 7.1 g/dL (6.4-8.2) Albumin 3.1 g/dL (3.4-5.0) Albumin/Globulin Ratio 0.8 (1.0-1.7) Problem List Problems Medical Problems: (1) Hereditary angioedema Status: Acute Assessment/Plan pt is nervous about tracheostomy, wishes to delay surgery until tomorrow will reschedule for 08/21 at 1030 R/R/B/A d/w pt. Risks, including, but not limited to: bleeding, infection, damage to surrounding structures, risk of anesthesia. He appears to understand, his questions are answered and he elects to proceed. Justicifation of Admission Dx: Justifications for Admission: Justification of Admission Dx: Yes Respiratory Failure: Airway Obstruction EVANS HIGUERA MD Aug 20, 2021 11:08
[2021-08-20] MEDS ORDERED: MIDAZOLAM HCL/PF 2 MG/2 ML VIAL. IV ONE (13:15)
[2021-08-20] MEDS ORDERED: MIDAZOLAM HCL/PF 5 MG/5 ML VIAL. IVP ONE (14:15)
[2021-08-20] MEDS ORDERED: fentaNYL PF VIAL 100 MCG/2 ML VIAL IVP ONE (14:15)
[2021-08-20 15:00] VITALS: BP 130/92
--- NOTE | 2021-08-20 15:16 | PDOC ---
Provider Note Date of Service: DATE: 08/20/21 TIME: 15:01 Provider Note Called for IJ placement. Patient examined with Dr. James. Right IJ identified. Sedation with Versed 4 mg and Fentanyl 100 mcg given Sterile prep and drape. 1% local used. Ultrasound guidance used. Multiple attempts at insertion of right IJ CVL without success. Jugular vein entered multiple times but wire would not pass to appropriate distance. Procedure eventually abandoned. Consider left IJ place tomorrow while patient under general anesthesia for tracheotomy. Chema Carmona MD Justifications for Admission Other Justification ANGIOEDEMA CHEMA CARMONA MD Aug 20, 2021 15:16
[2021-08-20 19:46] VITALS: BP 142/85
[2021-08-20] MEDS: PSYLLIUM HUSK (SUGAR FREE) 1 PKT PACKET PO SCH (20:54)
[2021-08-20 23:01] VITALS: BP 114/68
[2021-08-21] VITALS (12 sets, daily range): BP systolic 92–141; BP diastolic 54–106
[2021-08-21] MEDS: fentaNYL PF VIAL 100 MCG/2 ML VIAL IVP PRN ×7 (00:35→12:55)
[2021-08-21] MEDS: diphenhydrAMINE 50 MG/ML VIAL IVP PRN ×2 (02:02→08:38)
[2021-08-21] MEDS ORDERED: PROCHLORPERAZINE 10 MG/2 ML VIAL. IVP PRN (06:00)
[2021-08-21] MEDS ORDERED: MORPHINE SULFATE 2 MG/ML INJ. IVP PRN (06:00)
[2021-08-21] MEDS ORDERED: fentaNYL PF VIAL 100 MCG/2 ML VIAL IVP PRN ×3 (06:00→13:00)
[2021-08-21] MEDS ORDERED: HYDROmorphone 2 MG/ML VIAL IVP PRN (06:00)
[2021-08-21] MEDS ORDERED: IV RINGERS,LACTATED 1000ML 1,000 ML IV SCH ×2 (06:00→15:15)
--- NOTE | 2021-08-21 06:36 | PDOC ---
[facility] PROGRESS NOTE Date of Service DOS: DATE: 08/21/21 TIME: 06:35 Chief Complaint Chief Complaint A/P: Hereditary angioedema with acute throat swelling - He has declined to have a tracheostomy in the past. IV decadron declined, benadryl. Admitted to ICU, consult general surgery, pulmonology. Transfusion of FFP ordered for persistent symptoms previously. Previously with normal C1q esterase. Intractable abdominal pain - IV fentanyl ordered for angioedema related pain. On chronic pain medications History of polysubstance abuse History of deep venous thrombosis and pulmonary embolism in the past and HX factor V Leiden mutation for which he is on ELIQUIS. Not confirmed on laboratory studies at [facility] Narcotic dependence hx HX CVA Diabetes-Type II History of Present Illness History of Present Illness Mr Christensen is a 50-year-old male who has a history of sarcoidosis, hereditary angioedema, DVT/PE and Factor V leiden mutation with polysubstance abuse and multiple intubations for hereditary angioedema who comes to ED c/o bilateral jaw, abdominal, and scrotal pain and throat swelling. He awoke having difficulty speaking and came to ER, has acute neck pain abdominal pain scrotal pain. He reports he was unable to take his PO meds. ER unable to place IJ, femoral line placed He awoke having difficulty speaking and took IM epinephrine at home 0.3mg and had some improvement but has neck pain abdominal pain scrotal pain worsened he felt his throat closing came to the ED for further care. Given x3 additional epinephrine in ED with improvement in his perceived symptoms. Chest x-ray no infiltrates Given benadryl and fentanyl IV with improvement in his symptoms. Notes he is amenable to elective traceostomy at this time. Admitted to ICU for further care. 08/19: Seen in ICU.. Improved speech improved still complains of very little out of bed scrotal neck. He is amenable to FFP transfusion. I will discuss with pulmonology prior to transfusion given historic lack of abnormal C1q esterase activity, may not benefit from FFP and risk may outweigh the benefit, already with some improvement with epi x3. He notes he has been on opioids since he was 7 years old abdominal scrotal and neck pain and feels medical staff do not believe with his medical history. Counseled him on drug-seeking behavior and noted chronic opioid dependence is medical condition for which she is still being given prescription for opioids I offered outpatient Suboxone therapy and he has met with PAT nurse liaison 08/20: No overnight events. Pain well controlled though he still requiring IV fentanyl. He is very anxious about tracheostomy today. No chest pain or shortness of breath but does have abdominal pain mild scrotal pain and swelling. Will order labs pre-operatively Overnight transferred to [facility]. Little anxious prior to surgery. Given Ativan overnight with improvement. Discussed plan for vent weaning at LTACH. Able to speak in full sentences and was able to swallow yesterday. N.p.o. for tracheostomy today discussed with surgery. Vitals/I&O Vitals/I&O: Vital Signs Date Time Temp Pulse Resp B/P (MAP) Pulse Ox O2 Delivery O2 Flow Rate FiO2 08/21/21 05:25 Room Air 08/21/21 03:13 97.9 74 18 124/78 (93) 94 97.9 I & O 08/20/21 08/20/21 08/21/21 15:00 23:00 07:00 Intake Total 480 ml 240 ml Output Total 650 ml 550 ml Balance -650 ml 480 ml -310 ml Physical Exam General: Alert, Oriented X3, Cooperative, No acute distress Lungs: Clear Abdomen: Soft, Other (diffuse TTP mild) Extremities: No clubbing, No cyanosis Skin: No rashes, No breakdown Labs Labs: Laboratory Tests Test 08/20/21 09:09 White Blood Count 3.2 x10^3/uL (4.0-11.0) Red Blood Count 4.17 x10^6/uL (4.30-5.70) Hemoglobin 11.8 g/dL (13.0-17.5) Hematocrit 35.5 % (39.0-53.0) Mean Corpuscular Volume 85 fL (79-100) Mean Corpuscular Hemoglobin 28 pg (25-35) Mean Corpuscular Hemoglobin Concent 33 g/dL (31-37) Red Cell Distribution Width 16.2 % (11.5-14.5) Platelet Count 229 x10^3/uL (140-400) Neutrophils (%) (Auto) 39 % (31-73) Lymphocytes (%) (Auto) 33 % (24-48) Monocytes (%) (Auto) 15 % (0-9) Eosinophils (%) (Auto) 13 % (0-3) Basophils (%) (Auto) 2 % (0-3) Neutrophils # (Auto) 1.2 x10^3/uL (1.8-7.7) Lymphocytes # (Auto) 1.0 x10^3/uL (1.0-4.8) Monocytes # (Auto) 0.5 x10^3/uL (0.0-1.1) Eosinophils # (Auto) 0.4 x10^3/uL (0.0-0.7) Basophils # (Auto) 0.1 x10^3/uL (0.0-0.2) Prothrombin Time 13.4 SEC (11.7-14.0) Prothromb Time International Ratio 1.0 (0.8-1.1) Sodium Level 138 mmol/L (136-145) Potassium Level 3.6 mmol/L (3.5-5.1) Chloride Level 102 mmol/L (98-107) Carbon Dioxide Level 28 mmol/L (21-32) Anion Gap 8 (6-14) Blood Urea Nitrogen 10 mg/dL (8-26) Creatinine 0.8 mg/dL (0.7-1.3) Estimated GFR (Cockcroft-Gault) 122.8 BUN/Creatinine Ratio 13 (6-20) Glucose Level 86 mg/dL (70-99) Calcium Level 8.4 mg/dL (8.5-10.1) Magnesium Level 1.7 mg/dL (1.8-2.4) Total Bilirubin 0.4 mg/dL (0.2-1.0) Aspartate Amino Transf (AST/SGOT) 17 U/L (15-37) Alanine Aminotransferase (ALT/SGPT) 16 U/L (16-63) Alkaline Phosphatase 114 U/L (46-116) Total Protein 7.1 g/dL (6.4-8.2) Albumin 3.1 g/dL (3.4-5.0) Albumin/Globulin Ratio 0.8 (1.0-1.7) Assessment and Plan Assessmemt and Plan Problems Medical Problems: (1) Hereditary angioedema Status: Acute Comment Review of Relevant I have reviewed the following items wandy (where applicable) has been applied. Medications: Current Medications Medications (Trade) Dose Ordered Sig/Shane Route PRN Reason Start Time Stop Time Status Last Admin Dose Admin Midazolam HCl (Versed) 5 mg 1X ONCE IV 08/20/21 13:15 08/20/21 13:16 DC 08/20/21 14:06 Fentanyl Citrate (Fentanyl 2ml Vial) 100 mcg 1X ONCE IVP 08/20/21 14:15 08/20/21 14:19 DC 08/20/21 14:19 Midazolam HCl (Versed) 2 mg 1X ONCE IVP 08/20/21 14:15 08/20/21 14:19 DC 08/20/21 14:15 Lorazepam (Ativan Inj) 1 mg PRN Q6HRS PRN IVP ANXIETY / AGITATION 08/20/21 22:15 08/21/21 04:41 Diphenhydramine HCl (Benadryl) 25 mg PRN Q6HRS PRN IVP ITCHING 08/21/21 02:00 08/21/21 02:02 Justifications for Admission Other Justification ANGIOEDEMA HATTIE PETERSON MD Aug 21, 2021 06:36
[2021-08-21] MEDS: PANTOPRAZOLE 40 MG TABLET.DR. PO SCH (07:30)
[2021-08-21] MEDS ORDERED: SURGICEL FIBRILLAR 1X2 EACH. ONE (07:42)
[2021-08-21] MEDS ORDERED: BUPIVACAINE-EPI 0.5% 30 ML VIAL KIT. ONE (07:42)
[2021-08-21] MEDS: oxyCODONE ER 10 MG TAB.ER.12H PO SCH ×2 (09:00→21:00)
[2021-08-21] MEDS: POLYETHYLENE GLYCOL 3350 17 GM PACKET. PO SCH (09:00)
--- NOTE | 2021-08-21 10:07 | NUR ---
SW following. Discussed with RN, pt from home, room air, NPO. Trach planned for today. Yesi (OVIDIO) screening pt at [facility] in , however pt apparently won't qualify. SW to try [facility] due to pt having [place], Medicaid. Awaiting for trach placement to include the operative report. BIBIANA will continue to follow.
--- NOTE | 2021-08-21 10:21 | PDOC ---
PULMONARY PROGRESS NOTES DATE: 08/21/21 TIME: 10:18 Subjective Patient resting on room air no overnight concerns planned for trach today Speaking full sentences. Vitals Vital Signs Date Time Temp Pulse Resp B/P (MAP) Pulse Ox O2 Delivery O2 Flow Rate FiO2 08/21/21 07:00 98.0 68 18 115/76 (89) 94 Room Air 98.0 ROS: No Nausea, No Chest Pain, No Abdominal Pain, No Increase Cough General: Alert, No acute distress Lungs: Clear Cardiovascular: S1, S2 Abdomen: Soft, Non-tender Extremities: No Edema Skin: Warm Labs Laboratory Tests Test 08/20/21 09:09 White Blood Count 3.2 x10^3/uL (4.0-11.0) Red Blood Count 4.17 x10^6/uL (4.30-5.70) Hemoglobin 11.8 g/dL (13.0-17.5) Hematocrit 35.5 % (39.0-53.0) Mean Corpuscular Volume 85 fL (79-100) Mean Corpuscular Hemoglobin 28 pg (25-35) Mean Corpuscular Hemoglobin Concent 33 g/dL (31-37) Red Cell Distribution Width 16.2 % (11.5-14.5) Platelet Count 229 x10^3/uL (140-400) Neutrophils (%) (Auto) 39 % (31-73) Lymphocytes (%) (Auto) 33 % (24-48) Monocytes (%) (Auto) 15 % (0-9) Eosinophils (%) (Auto) 13 % (0-3) Basophils (%) (Auto) 2 % (0-3) Neutrophils # (Auto) 1.2 x10^3/uL (1.8-7.7) Lymphocytes # (Auto) 1.0 x10^3/uL (1.0-4.8) Monocytes # (Auto) 0.5 x10^3/uL (0.0-1.1) Eosinophils # (Auto) 0.4 x10^3/uL (0.0-0.7) Basophils # (Auto) 0.1 x10^3/uL (0.0-0.2) Prothrombin Time 13.4 SEC (11.7-14.0) Prothromb Time International Ratio 1.0 (0.8-1.1) Sodium Level 138 mmol/L (136-145) Potassium Level 3.6 mmol/L (3.5-5.1) Chloride Level 102 mmol/L (98-107) Carbon Dioxide Level 28 mmol/L (21-32) Anion Gap 8 (6-14) Blood Urea Nitrogen 10 mg/dL (8-26) Creatinine 0.8 mg/dL (0.7-1.3) Estimated GFR (Cockcroft-Gault) 122.8 BUN/Creatinine Ratio 13 (6-20) Glucose Level 86 mg/dL (70-99) Calcium Level 8.4 mg/dL (8.5-10.1) Magnesium Level 1.7 mg/dL (1.8-2.4) Total Bilirubin 0.4 mg/dL (0.2-1.0) Aspartate Amino Transf (AST/SGOT) 17 U/L (15-37) Alanine Aminotransferase (ALT/SGPT) 16 U/L (16-63) Alkaline Phosphatase 114 U/L (46-116) Total Protein 7.1 g/dL (6.4-8.2) Albumin 3.1 g/dL (3.4-5.0) Albumin/Globulin Ratio 0.8 (1.0-1.7) Medications Active Scripts Medications Dose Route/Sig Max Daily Dose Days Date Category Promethazine Hcl 25 Mg Tablet 25 Mg PO PRN BID PRN 09/16/20 Reported Percocet 10-325 Mg Tablet (Oxycodone/Acetaminophen) 1 Each Tablet 2 Tab PO PRN Q4-6HRS PRN 09/13/19 Reported Oxycontin (Oxycodone HCl) 10 Mg Tab.er.12h 10 Mg PO BID 09/13/19 Reported Benadryl (Diphenhydramine Hcl) 25 Mg Capsule 50 Mg PO Q6HRS 09/13/19 Reported Eliquis (Apixaban) 5 Mg Tablet 5 Mg PO DAILY 09/13/19 Reported Protonix (Pantoprazole Sodium) 40 Mg Tablet.dr 40 Mg PO DAILYAC 09/13/19 Reported Epipen (Epinephrine) 0.3 Mg/0.3 Ml Auto.injct 0.3 Mg IM UD 09/13/19 Reported Impression . IMPRESSION: 1. Acute on chronic respiratory failure in a patient who has history of hereditary angioedema and who has required intubations at least 8-10 times in the past. It should be noted that C1q esterase levels twice at 2 different hospitals have been within normal limits. He has been offered elective tracheostomies multiple times in the past. He initially agreed, but has refused prior to surgery. He would be a candidate for elective tracheostomy. 2. History of factor V Leiden mutation with history of deep venous thrombosis and pulmonary embolism, on chronic apixaban. Previous factor V Leiden mutation level at [facility] was within normal limits. 3. Type 2 diabetes. 4. Prior history of PEG. 5. History of chronic pancreatitis, although extensive workup per GI and has a mention in the note from January admission revealed no obvious evidence of chronic pancreatitis. 6. Chronic pain syndrome with narcotic dependence. Plan . 1. Patient's respiratory status is stable. remains on room air 2. Pain management per PCP 3. Airway appears to be well protected, 5. Avoid any STEROIDS SINCE HE IS ALLERGIC TO IT. 6. Holding Eliquis for tracheostomy, planned for trach today at noon --follow surgery recs 7. Discussed with Dr. Schmitz and Dr. Smith. Discussed with TEGAN ZHOU MD Aug 21, 2021 10:21
[2021-08-21] MEDS ORDERED: SUCCINYLCHOLINE 200 MG/10 ML VIAL. ONE (10:24)
[2021-08-21] MEDS ORDERED: LIDOCAINE 1% PF 5 ML VIAL. ONE (10:24)
[2021-08-21] MEDS ORDERED: PROPOFOL 10 MG/ML (20ML) VIAL. IV ONE (10:24)
--- NOTE | 2021-08-21 10:24 | PDOC ---
SURGICAL PROGRESS NOTE DATE: 08/21/21 TIME: 10:22 Subjective Pre-Op Note 51 yo M with hereditary angioedema TO OR for tracheostomy R/R/B/A d/w pt. Risks, including, but not limited to: bleeding, infection, damage to surrounding structures, risk of anesthesia. He appears to understand, his questions are answered and he elects to proceed. Vital Signs Vital Signs Date Time Temp Pulse Resp B/P (MAP) Pulse Ox O2 Delivery O2 Flow Rate FiO2 08/21/21 07:00 98.0 68 18 115/76 (89) 94 Room Air 98.0 I&O Intake and Output 08/21/21 07:00 Intake Total 720 ml Output Total 1200 ml Balance -480 ml Intake Oral 720 ml Output Urine Total 1200 ml Labs Laboratory Tests Test 08/20/21 09:09 White Blood Count 3.2 x10^3/uL (4.0-11.0) Red Blood Count 4.17 x10^6/uL (4.30-5.70) Hemoglobin 11.8 g/dL (13.0-17.5) Hematocrit 35.5 % (39.0-53.0) Mean Corpuscular Volume 85 fL (79-100) Mean Corpuscular Hemoglobin 28 pg (25-35) Mean Corpuscular Hemoglobin Concent 33 g/dL (31-37) Red Cell Distribution Width 16.2 % (11.5-14.5) Platelet Count 229 x10^3/uL (140-400) Neutrophils (%) (Auto) 39 % (31-73) Lymphocytes (%) (Auto) 33 % (24-48) Monocytes (%) (Auto) 15 % (0-9) Eosinophils (%) (Auto) 13 % (0-3) Basophils (%) (Auto) 2 % (0-3) Neutrophils # (Auto) 1.2 x10^3/uL (1.8-7.7) Lymphocytes # (Auto) 1.0 x10^3/uL (1.0-4.8) Monocytes # (Auto) 0.5 x10^3/uL (0.0-1.1) Eosinophils # (Auto) 0.4 x10^3/uL (0.0-0.7) Basophils # (Auto) 0.1 x10^3/uL (0.0-0.2) Prothrombin Time 13.4 SEC (11.7-14.0) Prothromb Time International Ratio 1.0 (0.8-1.1) Sodium Level 138 mmol/L (136-145) Potassium Level 3.6 mmol/L (3.5-5.1) Chloride Level 102 mmol/L (98-107) Carbon Dioxide Level 28 mmol/L (21-32) Anion Gap 8 (6-14) Blood Urea Nitrogen 10 mg/dL (8-26) Creatinine 0.8 mg/dL (0.7-1.3) Estimated GFR (Cockcroft-Gault) 122.8 BUN/Creatinine Ratio 13 (6-20) Glucose Level 86 mg/dL (70-99) Calcium Level 8.4 mg/dL (8.5-10.1) Magnesium Level 1.7 mg/dL (1.8-2.4) Total Bilirubin 0.4 mg/dL (0.2-1.0) Aspartate Amino Transf (AST/SGOT) 17 U/L (15-37) Alanine Aminotransferase (ALT/SGPT) 16 U/L (16-63) Alkaline Phosphatase 114 U/L (46-116) Total Protein 7.1 g/dL (6.4-8.2) Albumin 3.1 g/dL (3.4-5.0) Albumin/Globulin Ratio 0.8 (1.0-1.7) Problem List Problems Medical Problems: (1) Hereditary angioedema Status: Acute Justicifation of Admission Dx: Justifications for Admission: Justification of Admission Dx: Yes Respiratory Failure: Airway Obstruction EVANS HIGUERA MD Aug 21, 2021 10:24
[2021-08-21] MEDS ORDERED: MIDAZOLAM HCL/PF 2 MG/2 ML VIAL. ONE (10:35)
[2021-08-21] MEDS ORDERED: fentaNYL PF VIAL 100 MCG/2 ML VIAL ONE ×2 (10:36→11:45)
[2021-08-21] MEDS ORDERED: DEXMEDETOMIDINE 200 MCG/2 ML VIAL. IV ONE (11:00)
[2021-08-21] MEDS ORDERED: ROCURONIUM 50 MG/5 ML VIAL. ONE (11:07)
[2021-08-21] MEDS ORDERED: BUPIVACAINE-EPI 0.25%-1:200000 MPF 30 ML VIAL. INJ ONE (11:25)
[2021-08-21] MEDS ORDERED: PROPOFOL 50 ML IV ONE (11:44)
--- NOTE | 2021-08-21 11:57 | PDOC4 ---
OPERATIVE NOTE Date: Date: Aug 21, 2021 Pre-Op Diagnosis: Hereditary angioedema Post-Op Diagnosis: same Procedure Performed: Tracheostomy placement, open, specifically 6 shiley cuffed tracheostomy Surgeon: Oc Higuera Anesthesia Type: GETA plus local Blood Loss: 5 Specimans Obtained: none Findings: normal anatomy Complications: none Operative Note: After obtaining informed consent, patient was taken to OR, induced under GETA and prepped in the usual fashion. Vertical incision was made with cautery. Incision carried down through subcutaneous tissues. Trachea identified. 1st tracheal ring selected for 3 0 PDS stay suture. 2nd tracheal ring opened sharply with 15 blade and trap door created with metzenbaum. Traceostomy introduced under direct vision. Balloon inflated. End tidal CO2 detected and patient was successfully oxygenated and ventilated. Surgicel placed in wound. Tracheostomy secured with 3 0 nylon. PDS secured with steristrips. Tracheal collar placed. EVANS HIGUERA MD Aug 21, 2021 11:57
[2021-08-21] MEDS ORDERED: SEVOFLURANE 31 TO 60 MINUTES. IH ONE (12:32)
[2021-08-21] MEDS ORDERED: HYDROmorphone 2 MG/ML VIAL IV PRN (13:00)
[2021-08-21] MEDS ORDERED: ONDANSETRON PF 4 MG/2 ML VIAL. IVP PRN (13:00)
[2021-08-21] MEDS ORDERED: MIDAZOLAM HCL/PF 2 MG/2 ML VIAL. IV PRN (13:00)
[2021-08-21] MEDS ORDERED: PROPOFOL 100 ML IV PRN (13:00)
[2021-08-21] MEDS ORDERED: DEXMEDETOMIDINE 400 MCG in IV NORMAL SALINE 100ML 96 ML IV PRN (13:15)
[2021-08-21] MEDS: PROPOFOL 100 ML IV PRN ×4 (14:00→19:57)
--- NOTE | 2021-08-21 14:21 | RAD ---
Study: XR CHEST 1V Indication: Tracheostomy placement. Comparison: 08/18/2021 Findings: Tracheostomy tube tip terminates at the level of the clavicles. There is likely a component of basilar atelectasis. No pleural effusion or pneumothorax. Unchanged ca rdiomediastinal silhouette and zach. Impression: Adequately positioned tracheostomy tube with the tip at the level of the clavicles. Electronically signed by: XANDER ROCHA MD (08/21/2021 2:18 PM) [facility]
--- NOTE | 2021-08-21 15:14 | NUR ---
SS following up with discharge planning. SS reviewed pt chart and discussed with pt RN. Trach placed today and pt transferred back to ICU room 110. Pt is currently on the vent at 30%. Pt on Propofol and Fentanyl. Pt has [place] Medicaid. Referrals have been sent to [facility] in [place], [place], ; fax [phone], and [facility], ; fax [phone]. [facility] concerned that pt won't qualify with [place] Medicaid but are continuing to review clinical. SS will continue to follow for discharge planning.
[2021-08-21] MEDS: fentaNYL HIGH DOSE PCA 55 ML IV PRN ×2 (15:44→21:48)
[2021-08-21] MEDS: PSYLLIUM HUSK (SUGAR FREE) 1 PKT PACKET PO SCH (21:00)
[2021-08-22] VITALS (16 sets, daily range): BP systolic 118–179; BP diastolic 63–106
[2021-08-22] MEDS: PROPOFOL 100 ML IV PRN ×3 (00:18→10:00)
--- NOTE | 2021-08-22 07:16 | PDOC ---
[facility] PROGRESS NOTE Date of Service DOS: DATE: 08/22/21 TIME: 07:15 Chief Complaint Chief Complaint A/P: Hereditary angioedema with acute throat swelling - s/p tracheostomy 08/21/2021. Previously with normal C1q esterase. Intractable abdominal pain - IV fentanyl ordered for angioedema related pain. On chronic pain medications History of polysubstance abuse History of deep venous thrombosis and pulmonary embolism in the past and HX factor V Leiden mutation for which he is on ELIQUIS. Not confirmed on laboratory studies at [facility] Narcotic dependence hx HX CVA Diabetes-Type II History of Present Illness History of Present Illness Mr Christensen is a 50-year-old male who has a history of sarcoidosis, hereditary angioedema, DVT/PE and Factor V leiden mutation with polysubstance abuse and multiple intubations for hereditary angioedema who comes to ED c/o bilateral jaw, abdominal, and scrotal pain and throat swelling. He awoke having difficulty speaking and came to ER, has acute neck pain abdominal pain scrotal pain. He reports he was unable to take his PO meds. ER unable to place IJ, femoral line placed He awoke having difficulty speaking and took IM epinephrine at home 0.3mg and had some improvement but has neck pain abdominal pain scrotal pain worsened he felt his throat closing came to the ED for further care. Given x3 additional epinephrine in ED with improvement in his perceived sympto ms. Chest x-ray no infiltrates Given benadryl and fentanyl IV with improvement in his symptoms. Notes he is amenable to elective traceostomy at this time. Admitted to ICU for further care. 08/19: Seen in ICU.. Improved speech improved still complains of very little out of bed scrotal neck. He is amenable to FFP transfusion. I will discuss with pulmonology prior to transfusion given historic lack of abnormal C1q esterase activity, may not benefit from FFP and risk may outweigh the benefit, already with some improvement with epi x3. He notes he has been on opioids since he was 7 years old abdominal scrotal and neck pain and feels medical staff do not believe with his medical history. Counseled him on drug-seeking behavior and noted chronic opioid dependence is medical condition for which she is still being given prescription for opioids I offered outpatient Suboxone therapy and he has met with PAT nurse liaison 08/20: No overnight events. Pain well controlled though he still requiring IV fentanyl. He is very anxious about tracheostomy today. No chest pain or shortness of breath but does have abdominal pain mild scrotal pain and swelling. Will order labs pre-operatively 08/21: Overnight transferred to [facility]. Little anxious prior to surgery. Given Ativan overnight with improvement. Discussed plan for vent weaning at LTACH. Able to speak in full sentences and was able to swallow yesterday. N.p.o. for tracheostomy today discussed with surgery. Status post tracheostomy. Left groin central line pulled unable to maintain IV access MD unable to place IV and now has IO access in right shoulder sedated on propofol 30 and fentanyl 200 with his eyes open able to write notes to communicate he is comfortable. Afebrile cc time 31 min Vitals/I&O Vitals/I&O: Vital Signs Date Time Temp Pulse Resp B/P (MAP) Pulse Ox O2 Delivery O2 Flow Rate FiO2 08/22/21 06:00 44 15 150/83 (105) 97 Ventilator 08/22/21 04:00 96.5 96.5 I & O0 08/21/21 08/21/21 08/22/21 15:00 23:00 07:00 Intake Total 900 ml 913 ml Output Total 480 ml 360 ml 340 ml Balance 420 ml -360 ml 573 ml Physical Exam General: Alert, Oriented X3, Cooperative, No acute distress Lungs: Clear Abdomen: Soft, Other (diffuse TTP mild) Extremities: No clubbing, No cyanosis Skin: No rashes, No breakdown Labs Labs: Laboratory Tests Test 08/21/21 12:13 Glucose (Fingerstick) 119 mg/dL (70-99) Assessment and Plan Assessmemt and Plan Problems Medical Problems: (1) Hereditary angioedema Status: Acute Comment Review of Relevant I have reviewed the following items wandy (where applicable) has been applied. Medications: Current Medications Medications (Trade) Dose Ordered Sig/Shane Route PRN Reason Start Time Stop Time Status Last Admin Dose Admin Cellulose (Surgicel Fibrillar 1x2) 1 each STK-MED ONCE .ROUTE 08/21/21 07:42 08/21/21 07:43 DC 08/21/21 11:30 Bupivacaine HCl/ Epinephrine Bitart (Sensorcaine-Epi 0.25%-1:[id number] Mpf) 30 ml STK-MED ONCE INJ 08/21/21 11:25 08/21/21 11:26 DC 08/21/21 11:25 Propofol 100 ml @ 13.125 mls/ hr CONT PRN PRN IV SEDATION 08/21/21 13:00 08/21/21 13:13 DC 08/21/21 12:45 Fentanyl Citrate 30 ml @ 2.5 mls/hr CONT PRN IV SEE PROTOCOL 08/21/21 13:15 08/21/21 15:18 DC 08/21/21 14:00 Propofol 100 ml @ 2.625 mls/ hr CONT PRN IV PER PROTOCOL 08/21/21 13:15 08/22/21 06:19 Ringer's Solution 1,000 ml @ 75 mls/hr [id number] IV 08/21/21 15:15 08/23/21 07:14 08/21/21 21:51 Fentanyl Citrate 55 ml @ 1 mls/hr CONT PRN PRN IV SEE PROTOCOL 08/21/21 15:30 08/21/21 21:48 Justifications for Admission Other Justification ANGIOEDEMA HATTIE PETERSON MD Aug 22, 2021 07:16
[2021-08-22] MEDS: PANTOPRAZOLE 40 MG TABLET.DR. PO SCH (07:30)
[2021-08-22] MEDS ORDERED: MAGNESIUM SULFATE 2GM 50 ML IV ONE ×2 (08:00→15:00)
[2021-08-22 08:34] LABS: BASE EXCESS ABG 1 mmol/L (-3-3); HCO3 ABG 26 mmol/L (21-28); PCO2 ABG 39 mmHg (35-46); PO2 ABG 72 mmHg (75-108); SAT O2 ABG 94 % (92-99)
[2021-08-22 08:36] LABS: FIO2 ABG 30
[2021-08-22 08:43] LABS: HEMATOCRIT 33.1 % (39.0-53.0); HEMOGLOBIN 10.9 g/dL (13.0-17.5); RED BLOOD COUNT 3.88 x10^6/uL (4.30-5.70); RED CELL DISTRIBUTION WIDTH 16.7 % (11.5-14.5); WHITE BLOOD COUNT 7.5 x10^3/uL (4.0-11.0)
[2021-08-22 08:53] LABS: ALBUMIN 2.9 g/dL (3.4-5.0); ALBUMIN/GLOBULIN RATIO 0.8 (1.0-1.7); CALCIUM 8.8 mg/dL (8.5-10.1); CREATININE 0.6 mg/dL (0.7-1.3); GFR 171.2; POTASSIUM 3.9 mmol/L (3.5-5.1); TOTAL BILIRUBIN 0.3 mg/dL (0.2-1.0); TOTAL PROTEIN 6.6 g/dL (6.4-8.2)
[2021-08-22] MEDS: oxyCODONE ER 10 MG TAB.ER.12H PO SCH (09:00)
[2021-08-22] MEDS: POLYETHYLENE GLYCOL 3350 17 GM PACKET. PO SCH (09:00)
--- NOTE | 2021-08-22 09:04 | NUR ---
PICC Pre-Insertion Note Allergies and reactions Corticosteroids, NSAIDS INR 1.0 BUN 10 Cr 0.8 Platelets 229 Blood culture done n/a blood culture results Order Verified yes Consent signed yes Previous PICC placement yes Past Medical/Surgical history and current diagnosis reviewed yes Patient Medical /Surgical History Related to PICC line placement Diabetes Past central line or venous access device placement Special considerations for PICC line placement None PICC placement indication Multiple/ Frequent blood draws, Poor peripheral intravenous access Kaleigh Dye RN PICC Nurse Addendum: 08/22/21 at 0956 by ERICKA DYE RN Amended: Links added.
--- NOTE | 2021-08-22 09:26 | PDOC ---
PULMONARY PROGRESS NOTES DATE: 08/22/21 TIME: 09:22 Subjective Patient underwent tracheostomy yesterday. Patient required temporary support with mechanical ventilation as he was very agitated and restless and had some tracheal bleeding. Patient is on assist control mode. Vitals Vital Signs Date Time Temp Pulse Resp B/P (MAP) Pulse Ox O2 Delivery O2 Flow Rate FiO2 08/22/21 09:00 65 15 167/98 (121) 100 Ventilator 08/22/21 08:00 97.4 97.4 ROS: No Nausea, No Chest Pain, No Abdominal Pain, No Increase Cough General: No acute distress Lungs: Clear Cardiovascular: S1, S2 Abdomen: Soft, Non-tender Extremities: No Edema Skin: Warm Labs Laboratory Tests Test 08/21/21 12:13 08/22/21 08:30 Glucose (Fingerstick) 119 mg/dL (70-99) White Blood Count 7.5 x10^3/uL (4.0-11.0) Red Blood Count 3.88 x10^6/uL (4.30-5.70) Hemoglobin 10.9 g/dL (13.0-17.5) Hematocrit 33.1 % (39.0-53.0) Mean Corpuscular Volume 85 fL (79-100) Mean Corpuscular Hemoglobin 28 pg (25-35) Mean Corpuscular Hemoglobin Concent 33 g/dL (31-37) Red Cell Distribution Width 16.7 % (11.5-14.5) Platelet Count 204 x10^3/uL (140-400) O2 Saturation 94 % (92-99) Arterial Blood pH 7.44 (7.35-7.45) Arterial Blood pCO2 at Patient Temp 39 mmHg (35-46) Arterial Blood pO2 at Patient Temp 72 mmHg (75-108) Arterial Blood HCO3 26 mmol/L (21-28) Arterial Blood Base Excess 1 mmol/L (-3-3) FiO2 30 Sodium Level 137 mmol/L (136-145) Potassium Level 3.9 mmol/L (3.5-5.1) Chloride Level 104 mmol/L (98-107) Carbon Dioxide Level 26 mmol/L (21-32) Anion Gap 7 (6-14) Blood Urea Nitrogen 13 mg/dL (8-26) Creatinine 0.6 mg/dL (0.7-1.3) Estimated GFR (Cockcroft-Gault) 171.2 BUN/Creatinine Ratio 22 (6-20) Glucose Level 113 mg/dL (70-99) Calcium Level 8.8 mg/dL (8.5-10.1) Total Bilirubin 0.3 mg/dL (0.2-1.0) Aspartate Amino Transf (AST/SGOT) 13 U/L (15-37) Alanine Aminotransferase (ALT/SGPT) 12 U/L (16-63) Alkaline Phosphatase 105 U/L (46-116) Total Protein 6.6 g/dL (6.4-8.2) Albumin 2.9 g/dL (3.4-5.0) Albumin/Globulin Ratio 0.8 (1.0-1.7) Laboratory Tests Test 08/21/21 12:13 08/22/21 08:30 Glucose (Fingerstick) 119 mg/dL (70-99) White Blood Count 7.5 x10^3/uL (4.0-11.0) Red Blood Count 3.88 x10^6/uL (4.30-5.70) Hemoglobin 10.9 g/dL (13.0-17.5) Hematocrit 33.1 % (39.0-53.0) Mean Corpuscular Volume 85 fL (79-100) Mean Corpuscular Hemoglobin 28 pg (25-35) Mean Corpuscular Hemoglobin Concent 33 g/dL (31-37) Red Cell Distribution Width 16.7 % (11.5-14.5) Platelet Count 204 x10^3/uL (140-400) O2 Saturation 94 % (92-99) Arterial Blood pH 7.44 (7.35-7.45) Arterial Blood pCO2 at Patient Temp 39 mmHg (35-46) Arterial Blood pO2 at Patient Temp 72 mmHg (75-108) Arterial Blood HCO3 26 mmol/L (21-28) Arterial Blood Base Excess 1 mmol/L (-3-3) FiO2 30 Sodium Level 137 mmol/L (136-145) Potassium Level 3.9 mmol/L (3.5-5.1) Chloride Level 104 mmol/L (98-107) Carbon Dioxide Level 26 mmol/L (21-32) Anion Gap 7 (6-14) Blood Urea Nitrogen 13 mg/dL (8-26) Creatinine 0.6 mg/dL (0.7-1.3) Estimated GFR (Cockcroft-Gault) 171.2 BUN/Creatinine Ratio 22 (6-20) Glucose Level 113 mg/dL (70-99) Calcium Level 8.8 mg/dL (8.5-10.1) Total Bilirubin 0.3 mg/dL (0.2-1.0) Aspartate Amino Transf (AST/SGOT) 13 U/L (15-37) Alanine Aminotransferase (ALT/SGPT) 12 U/L (16-63) Alkaline Phosphatase 105 U/L (46-116) Total Protein 6.6 g/dL (6.4-8.2) Albumin 2.9 g/dL (3.4-5.0) Albumin/Globulin Ratio 0.8 (1.0-1.7) Medications Active Scripts Medications Dose Route/Sig Max Daily Dose Days Date Category Promethazine Hcl 25 Mg Tablet 25 Mg PO PRN BID PRN 09/16/20 Reported Percocet 10-325 Mg Tablet (Oxycodone/Acetaminophen) 1 Each Tablet 2 Tab PO PRN Q4-6HRS PRN 09/13/19 Reported Oxycontin (Oxycodone HCl) 10 Mg Tab.er.12h 10 Mg PO BID 09/13/19 Reported Benadryl (Diphenhydramine Hcl) 25 Mg Capsule 50 Mg PO Q6HRS 09/13/19 Reported Eliquis (Apixaban) 5 Mg Tablet 5 Mg PO DAILY 09/13/19 Reported Protonix (Pantoprazole Sodium) 40 Mg Tablet.dr 40 Mg PO DAILYAC 09/13/19 Reported Epipen (Epinephrine) 0.3 Mg/0.3 Ml Auto.injct 0.3 Mg IM UD 09/13/19 Reported Impression . IMPRESSION: 1. Acute on chronic respiratory failure in a patient who has history of hereditary angioedema and who has required intubations at least 8-10 times in the past. It should be noted that C1q esterase levels twice at 2 different hospitals have been within normal limits. He has been offered elective tracheostomies multiple times in the past but had declined previously. He was agreeable to proceed with tracheostomy during this hospitalization. 2. History of factor V Leiden mutation with history of deep venous thrombosis and pulmonary embolism, on chronic apixaban. Previous factor V Leiden mutation level at [facility] was within normal limits. 3. Type 2 diabetes. 4. Prior history of PEG. 5. History of chronic pancreatitis, although extensive workup per GI and has a mention in the note from January admission revealed no obvious evidence of chronic pancreatitis. 6. Chronic pain syndrome with narcotic dependence. Plan . 1. Patient is status post tracheostomy 08/21/2021. Was rested on assist control mode overnight. We will try to wean him off the ventilator and place him on trach shield today. Will start speaking valve/Passy-Kary valve once he is on trach shield. Trach size is 6.0. He should be able to tolerate even capping later. 2. Pain management per PCP 3. Chest x-ray was reviewed. No infiltrates. 5. Avoid any STEROIDS SINCE HE IS ALLERGIC TO IT. 6. Eliquis can be resumed later today. 7. Patient would be a good candidate for long-term acute care facility. He is not a candidate for decannulation. Discussed with RN and RT. TEGAN MARTIN MD Aug 22, 2021 09:26
--- NOTE | 2021-08-22 09:50 | NUR ---
PICC Insertion Note- Unsuccessful Placement Procedure: Following complete explanation of the PICC procedure including the indications, risks, and potential complications, two nurse consent was obtained. Hand hygiene performed. Standardized central line checklist was utilized. The patient was placed in the supine position, the arm was prepped with chlorhexidine and patient draped with maximum sterile barrier. 3 mL 1% lidocaine was infiltrated into the skin to provide local anesthesia. A thorough assessment of Left upper extremity completed. Using real-time ultrasound guidance and standardized micro puncture set, the Brachial vein was punctured, however at this time the wire wound not advance. Multiple attempts at different aspects of the brachial vein at different places up the left upper arm were attempted, however the same problem was the wire wound not advance. At this time the placement was abandoned and patient was undraped and patient's nurse was informed. Complications: none noted
[2021-08-22] MEDS ORDERED: APIXABAN 5 MG TABLET. PO SCH (10:00)
[2021-08-22] MEDS ORDERED: fentaNYL PF VIAL 100 MCG/2 ML VIAL IM ONE (11:00)
[2021-08-22] MEDS ORDERED: ORPHENADRINE CITRATE 60 MG/2 ML VIAL. IM ONE (11:30)
[2021-08-22] MEDS ORDERED: POLY17PO52 PO (12:00)
[2021-08-22] MEDS ORDERED: OLAN5TAB7 PO (12:00)
[2021-08-22] MEDS ORDERED: SENN-209 PO (12:00)
--- NOTE | 2021-08-22 12:04 | SNU/HH DC ---
DISCHARGE ORDERS DISCHARGE INFORMATION: DISCHARGE DATE: Aug 22, 2021 FINAL DIAGNOSIS Problems Medical Problems: (1) Hereditary angioedema Status: Acute CONDITION ON DISCHARGE: Stable CODE STATUS: Code Status: Full LTAC: ADMIT TO LTAC: Yes POST DISCHARGE ORDERS: ACTIVITY ORDERS: No restrictions WEIGHT BEARING STATUS: No restrictions DIET AFTER DISCHARGE: ADAT with trach cuff deflated per [employer], pulm WOUND/INCISION CARE: Reinforce dressing PRN, Routine catheter care CHECKS AFTER DISCHARGE: CHECKS AFTER DISCHARGE: Check blood press - daily, Check blood sugar, ac/hs, Weigh Yourself Daily FOLLOW-UP: Additional Instructions: Can schedule Trach site check with general surgery in 2-4 weeks - Dr. Taylor [address] [place], [place] [id number] TREATMENT/EQUIPMENT ORDERS: ADAPTIVE EQUIPMENT NEEDED: None INFUSION EQUIPMENT NEEDED: PICC Line RESPIRATORY EQUIPMENT NEEDED: Oxygen Physical Therapy For: Evalulation/Treatment Occupational Therapy For: Evaluation/Treatment Speech Language Pathology For: Swallow Cognition DISCHARGE MEDICATIONS: Home Meds Active Scripts Sennosides/Docusate Sodium (Stool Softener-Stimulant Lax) 1 Each Tablet, 2 TAB PO PRN BID PRN for CONSTIPATION for 30 Days, #30 TAB Prov:HATTIE PETERSON MD 08/22/21 Polyethylene Glycol 3350 (POLYETHYLENE GLYCOL 3350) 17 Gm Powd.pack, 17 GM PO DAILY for Constipation for 30 Days, #30 PKT Prov:HATTIE PETERSON MD 08/22/21 Olanzapine (OLANZAPINE ODT) 5 Mg Tab.rapdis, 5 MG PO PRN BID PRN for ANXIETY / AGITATION for 30 Days, #60 TAB 2 Refills Prov:HATTIE PETERSON MD 08/22/21 Reported Medications Promethazine Hcl (PROMETHAZINE HCL) 25 Mg Tablet, 25 MG PO PRN BID PRN for NAUSEA/VOMITING, TAB 09/16/20 Oxycodone/Apap 10-325 (PERCOCET 10-325 MG TABLET ) 1 Each Tablet, 2 TAB PO PRN Q4-6HRS PRN for PAIN, TAB 0 Refills 09/13/19 Oxycodone HCl (Oxycontin) 10 Mg Tab.er.12h, 10 MG PO BID for pain, TAB.SR 09/13/19 Diphenhydramine Hcl (BENADRYL) 25 Mg Capsule, 50 MG PO Q6HRS for Allergic jailyn ction , CAP 09/13/19 Apixaban (ELIQUIS) 5 Mg Tablet, 5 MG PO DAILY for blood thinner, TAB 09/13/19 Pantoprazole Sodium (PROTONIX ) 40 Mg Tablet.dr, 40 MG PO DAILYAC for GERD, TAB 09/13/19 Epinephrine (Epipen) 0.3 Mg/0.3 Ml Auto.injct, 0.3 MG IM UD for allergic reaction, #1 SYR 0 Refills 09/13/19 HATTIE PETERSON MD Aug 22, 2021 12:04
--- NOTE | 2021-08-22 12:13 | PDOC3 ---
Discharge Summary Visit Information Date of Admission: Aug 18, 2021 Date of Discharge: Aug 22, 2021 Admitting Diagnosis: Herditary angioedema Final Diagnosis Problems Medical Problems: (1) Hereditary angioedema Status: Acute Brief Hospital Course Allergies Allergies Coded Allergies Type Severity Reaction Last Updated Verified iodine Allergy Severe 09/15/19 Yes metoclopramide Allergy Severe 09/15/19 Yes ondansetron Allergy Severe ANAPHYLAXIS 09/15/19 Yes prochlorperazine Allergy Severe 09/16/20 Yes Corticosteroids (Glucocorticoids) Allergy Intermediate MAKES HIM SICK 08/18/21 Yes NSAIDS (Non-Steroidal Anti-Inflamma Allergy Intermediate 09/15/19 Yes aspirin Allergy Intermediate 09/15/19 Yes morphine Allergy Intermediate 09/15/19 Yes prednisone Allergy Intermediate 09/15/19 Yes Vital Signs Vital Signs Date Time Temp Pulse Resp B/P (MAP) Pulse Ox O2 Delivery O2 Flow Rate FiO2 08/22/21 12:00 Mechanical Ventilator 08/22/21 11:00 80 15 159/97 (117) 99 08/22/21 10:30 12.0 08/22/21 10:00 97.9 97.9 Lab Results Laboratory Tests Test 08/21/21 12:13 08/22/21 08:30 08/22/21 12:04 Glucose (Fingerstick) 119 mg/dL (70-99) 80 mg/dL (70-99) White Blood Count 7.5 x10^3/uL (4.0-11.0) Red Blood Count 3.88 x10^6/uL (4.30-5.70) Hemoglobin 10.9 g/dL (13.0-17.5) Hematocrit 33.1 % (39.0-53.0) Mean Corpuscular Volume 85 fL (79-100) Mean Corpuscular Hemoglobin 28 pg (25-35) Mean Corpuscular Hemoglobin Concent 33 g/dL (31-37) Red Cell Distribution Width 16.7 % (11.5-14.5) Platelet Count 204 x10^3/uL (140-400) O2 Saturation 94 % (92-99) Arterial Blood pH 7.44 (7.35-7.45) Arterial Blood pCO2 at Patient Temp 39 mmHg (35-46) Arterial Blood pO2 at Patient Temp 72 mmHg (75-108) Arterial Blood HCO3 26 mmol/L (21-28) Arterial Blood Base Excess 1 mmol/L (-3-3) FiO2 30 Sodium Level 137 mmol/L (136-145) Potassium Level 3.9 mmol/L (3.5-5.1) Chloride Level 104 mmol/L (98-107) Carbon Dioxide Level 26 mmol/L (21-32) Anion Gap 7 (6-14) Blood Urea Nitrogen 13 mg/dL (8-26) Creatinine 0.6 mg/dL (0.7-1.3) Estimated GFR (Cockcroft-Gault) 171.2 BUN/Creatinine Ratio 22 (6-20) Glucose Level 113 mg/dL (70-99) Calcium Level 8.8 mg/dL (8.5-10.1) Total Bilirubin 0.3 mg/dL (0.2-1.0) Aspartate Amino Transf (AST/SGOT) 13 U/L (15-37) Alanine Aminotransferase (ALT/SGPT) 12 U/L (16-63) Alkaline Phosphatase 105 U/L (46-116) Total Protein 6.6 g/dL (6.4-8.2) Albumin 2.9 g/dL (3.4-5.0) Albumin/Globulin Ratio 0.8 (1.0-1.7) Laboratory Tests Test 08/21/21 12:13 08/22/21 08:30 08/22/21 12:04 Glucose (Fingerstick) 119 mg/dL (70-99) 80 mg/dL (70-99) White Blood Count 7.5 x10^3/uL (4.0-11.0) Red Blood Count 3.88 x10^6/uL (4.30-5.70) Hemoglobin 10.9 g/dL (13.0-17.5) Hematocrit 33.1 % (39.0-53.0) Mean Corpuscular Volume 85 fL (79-100) Mean Corpuscular Hemoglobin 28 pg (25-35) Mean Corpuscular Hemoglobin Concent 33 g/dL (31-37) Red Cell Distribution Width 16.7 % (11.5-14.5) Platelet Count 204 x10^3/uL (140-400) O2 Saturation 94 % (92-99) Arterial Blood pH 7.44 (7.35-7.45) Arterial Blood pCO2 at Patient Temp 39 mmHg (35-46) Arterial Blood pO2 at Patient Temp 72 mmHg (75-108) Arterial Blood HCO3 26 mmol/L (21-28) Arterial Blood Base Excess 1 mmol/L (-3-3) FiO2 30 Sodium Level 137 mmol/L (136-145) Potassium Level 3.9 mmol/L (3.5-5.1) Chloride Level 104 mmol/L (98-107) Carbon Dioxide Level 26 mmol/L (21-32) Anion Gap 7 (6-14) Blood Urea Nitrogen 13 mg/dL (8-26) Creatinine 0.6 mg/dL (0.7-1.3) Estimated GFR (Cockcroft-Gault) 171.2 BUN/Creatinine Ratio 22 (6-20) Glucose Level 113 mg/dL (70-99) Calcium Level 8.8 mg/dL (8.5-10.1) Total Bilirubin 0.3 mg/dL (0.2-1.0) Aspartate Amino Transf (AST/SGOT) 13 U/L (15-37) Alanine Aminotransferase (ALT/SGPT) 12 U/L (16-63) Alkaline Phosphatase 105 U/L (46-116) Total Protein 6.6 g/dL (6.4-8.2) Albumin 2.9 g/dL (3.4-5.0) Albumin/Globulin Ratio 0.8 (1.0-1.7) Brief Hospital Course Mr Christensen is a 50-year-old male who has a history of sarcoidosis, hereditary angioedema, DVT/PE and Factor V leiden mutation with polysubstance abuse and multiple intubations for hereditary angioedema who comes to ED c/o bilateral jaw, abdominal, and scrotal pain and throat swelling. He awoke having difficulty speaking and came to ER, has acute neck pain abdominal pain scrotal pain. He reports he was unable to take his PO meds. ER unable to place IJ, femoral line placed He awoke having difficulty speaking and took IM epinephrine at home 0.3mg and had some improvement but has neck pain abdominal pain scrotal pain worsened he felt his throat closing came to the ED for further care. Given x3 additional epinephrine in ED with improvement in his perceived symptoms. Chest x-ray no infiltrates Given benadryl and fentanyl IV with improvement in his symptoms. Notes he is amenable to elective traceostomy at this time. Admitted to ICU for further care. 08/19: Seen in ICU.. Improved speech improved still complains of very little out of bed scrotal neck. He is amenable to FFP transfusion. I will discuss with pulmonology prior to transfusion given historic lack of abnormal C1q esterase activity, may not benefit from FFP and risk may outweigh the benefit, already with some improvement with epi x3. He notes he has been on opioids since he was 7 years old abdominal scrotal and neck pain and feels medical staff do not believe with his medical history. Counseled him on drug-seeking behavior and noted chronic opioid dependence is medical condition for which she is still be ing given prescription for opioids I offered outpatient Suboxone therapy and he has met with PAT nurse liaison 08/20: No overnight events. Pain well controlled though he still requiring IV fentanyl. He is very anxious about tracheostomy today. No chest pain or shortness of breath but does have abdominal pain mild scrotal pain and swelling. Will order labs pre-operatively 08/21: Overnight transferred to [facility]. Little anxious prior to surgery. Given Ativan overnight with improvement. Discussed plan for vent weaning at [facility]. Able to speak in full sentences and was able to swallow yesterday. N.p.o. for tracheostomy today discussed with surgery. Status post tracheostomy. Left groin central line pulled unable to maintain IV access MD unable to place IV and now has IO access in right shoulder sedated on propofol 30 and fentanyl 200 with his eyes open able to write notes to com municate he is comfortable. Afebrile Patient underwent tracheostomy 08/21/2021. Patient required temporary support with mechanical ventilation as he was very agitated and restless and had some tracheal bleeding. Patient is on assist control mode. ABG with PaO2 72 PICC attempted via PICC nurse, procedure abandoned due to inability to advance wire, IR consulted for PICC for discharge. Problem list: Hereditary angioedema with acute throat swelling - s/p tracheostomy 08/21/2021. Previously with normal C1q esterase. Intractable abdominal pain - IV fentanyl ordered for angioedema related pain. On chronic pain medications History of polysubstance abuse History of deep venous thrombosis and pulmonary embolism in the past and HX factor V Leiden mutation for which he is on ELIQUIS. Not confirmed on laboratory studies at [facility] Narcotic dependence hx HX CVA Diabetes-Type II Consults: Pulm, general surgery. Plan d/c to [facility] for trach education and rehabilitation Greater than 30 minutes spent on day of d/c Discharge Information Condition at Discharge: Stable Follow Up: Weeks (1) Disposition/Orders: D/C to Another Facility ([place]) Scheduled Apixaban (Eliquis) 5 Mg Tablet, 5 MG PO DAILY for blood thinner, (Reported) Entered as Reported by: SHWETHA PAYNE RN on 09/13/19644 Last Action: Reviewed on 08/18/211824 by JAY LOPEZ Diphenhydramine Hcl (Benadryl) 25 Mg Capsule, 50 MG PO Q6HRS for Allergic reaction , (Reported) Entered as Reported by: SHWETHA PAYNE RN on 09/13/19644 Last Action: Reviewed on 08/18/211824 by JAY LOPEZ Epinephrine (Epipen) 0.3 Mg/0.3 Ml Auto.injct, 0.3 MG IM UD for allergic reaction, #1 Ref 0 (Reported) Entered as Reported by: SHWETHA PAYNE RN on 09/13/19629 Last Action: Reviewed on 08/18/211824 by JAY LOPEZ Oxycodone HCl (Oxycontin) 10 Mg Tab.er.12h, 10 MG PO BID for pain, (Reported) Entered as Reported by: SHWETHA PAYNE RN on 09/13/19644 Last Action: Reviewed on 08/18/211824 by JAY LOPEZ Pantoprazole Sodium (Protonix ) 40 Mg Tablet.dr, 40 MG PO DAILYAC for GERD, (Reported) Entered as Reported by: SHWETHA PAYNE RN on 09/13/19644 Last Action: Reviewed on 08/18/211824 by JAY LOPEZ Polyethylene Glycol 3350 (Polyethylene Glycol 3350) 17 Gm Powd.pack, 17 GM PO DA DANIELA for Constipation for 30 Days, #30 Prescribed by: HATTIE PETERSON MD on 08/22/21 1200 Scheduled PRN Olanzapine (Olanzapine Odt) 5 Mg Tab.rapdis, 5 MG PO PRN BID PRN for ANXIETY / AGITATION for 30 Days, #60 Ref 2 Prescribed by: HATTIE PETERSON MD on 08/22/21 1200 Oxycodone/Apap 10-325 (Percocet 10-325 Mg Tablet ) 1 Each Tablet, 2 TAB PO PRN Q4-6HRS PRN for PAIN, Ref 0 (Reported) Entered as Reported by: SHWETHA PAYNE RN on 09/13/19 0645 Last Action: Reviewed on 08/18/211824 by JAY LOPEZ Promethazine Hcl (Promethazine Hcl) 25 Mg Tablet, 25 MG PO PRN BID PRN for NAUSEA/VOMITING, (Reported) Entered as Reported by: EVANS VALDES on 09/16/20 1258 Last Action: Reviewed on 08/18/211824 by JAY LOPEZ Sennosides/Docusate Sodium (Stool Softener-Stimulant Lax) 1 Each Tablet, 2 TAB PO PRN BID PRN for CONSTIPATION for 30 Days, #30 Prescribed by: HATTIE PETERSON MD on 08/22/21 1200 Justicifation of Admission Dx: Justifications for Admission: Justification of Admission Dx: Yes Respiratory Failure: Airway Obstruction HATTIE PETERSON MD Aug 22, 2021 12:13
--- NOTE | 2021-08-22 13:07 | NUR ---
SS following up with discharge planning. SS reviewed pt chart and discussed with pt RN. Pt is currently on trach shield at 40%. Central line placed today. Pt accepted at [facility], ; fax [phone], for LTACH placement. [place] Medicaid approved. Bed available. Discharge orders received and phoned and faxed to [facility]. Pt will discharge today and go to [facility] at 1500 via [facility] transport. Packet and ambulance form on the chart. Pt and pt's RN notified.
[2021-08-22] MEDS ORDERED: fentaNYL 100MCG/HR PATCH 1 PATCH PATCH TD ONE (13:15)
[2021-08-22] MEDS ORDERED: fentaNYL PF VIAL 100 MCG/2 ML VIAL IVP PRN ×2 (13:30)
[2021-08-22] MEDS: diphenhydrAMINE 50 MG/ML VIAL IVP PRN (13:42)
--- NOTE | 2021-08-22 14:01 | RAD ---
Single view of the chest. 08/22/2021 1:28 PM Indication: Reason: CENTRAL LINE PLACEMENT Comparison: Chest radiograph, yesterday Findings: Tracheostomy tube in place, tip 4 cm above the vero. No pneumothorax. No pleural effusion . Right sided central line with tip at the cavoatrial junction. No focal infiltrate is identified. Sm all foreign body projecting over left midlung is unchanged. No acute osseous abnormalities. IMPRESSION: The right-sided central line with tip the cavoatrial junction. Electronically signed by: Cristi Raza MD (08/22/2021 1:58 PM) [id number]
--- NOTE | 2021-08-22 15:48 | NUR ---
Discharge Note: [facility] C[facility] [place] ICU Discharge instructions and discharge home medications reviewed with Other facility and a copy given. All questions have been answered and understanding verbalized. The following instructions and handouts were given: Med rec, patient summery report, discharge instructions. Discontinued lines and drains: ELINA condesineladia clean dry and intact. Patient discharged to [facility] with [facility] via [facility]
--- NOTE | 2021-08-22 16:12 | RAD ---
Ultrasound-guided placement of a right neck triple-lumen central venous catheter Sterility: All elements of maximal sterile barrier technique including the use of a cap, mask, steril e gown, sterile gloves, large sterile sheet, appropriate hand hygiene, and 2% chlorhexidine for cutan eous antisepsis (or acceptable alternative antiseptic per current guidelines) were followed for this procedure. Consent: The procedure was explained in its entirety to the patient or the patients designated repres entative by a member of the treatment team, including a discussion of the risks, benefits and commonl y accepted alternatives to the procedure, as well as the expected consequences of no therapy whatsoev er. Discussion of the risks included, but was not limited to, those that are most frequent and thos e that are rare but possibly severe or life-threatening, as well as the possibility of unforeseen com plications. Technique and Findings: Following informed consent, the patient was prepped and draped in the usual s terile fashion. Ultrasound interrogation of the right neck revealed multiple large veins, which were abnormal in course. Patient known to have many prior central venous interventions, with areas of miranda ous occlusion. What appear to be a prominent vein was accessed under direct ultrasound guidance using micropuncture technique. A guidewire was gently advanced centrally. Neck pain is noted on the patien t's surveillance system monitor. A micropuncture sheath was placed and the wire exchanged for an 035 guidewire which again advanced easily. Over this wire following dilatation a triple-lumen central line was advanced. Chest radiograph was obtained demonstrating catheter tip to be in acceptable position. The catheter w as found to flush and aspirate normally. The catheter was secured. Sterile dressings were applied. No immediate complications were identified. IMPRESSION: Ultrasound-guided placement of a right neck central line as described. Electronically signed by: Cristi Raza MD (08/22/2021 4:10 PM) [id number]
== END 2021-08-22 15:00 | DRG 4 ==
LOC: ER 10:56 → 1 WEST ICU 12:43 → EEVIPCON 12:43 → 4 NORTH 08-20 18:04 → 1 WEST ICU 08-21 11:46
PROVIDERS: ADMIT Internal Medicine; ATTEND Internal Medicine
PROC: 5A1945Z Respiratory Ventilation, 24-96 Consecutive Hours (ICD-10-PCS; 2021-08-21)
PROC: 0B110F4 Bypass Trachea to Cutaneous with Tracheostomy Device, Open Approach (ICD-10-PCS; principal; 2021-08-21 10:30)
PROC: 02HV33Z Insertion of Infusion Device into Superior Vena Cava, Percutaneous Approach (ICD-10-PCS; 2021-08-22)
PROC: B548ZZA Ultrasonography of Superior Vena Cava, Guidance (ICD-10-PCS; 2021-08-22)
DX: D84.1 Defects in the complement system (principal); J96.20 Acute and chronic respiratory failure, unspecified whether with hypoxia or hypercapnia; K86.1 Other chronic pancreatitis; D68.51 Activated protein C resistance; F11.20 Opioid dependence, uncomplicated; D86.9 Sarcoidosis, unspecified; E11.9 Type 2 diabetes mellitus without complications; G89.4 Chronic pain syndrome; N50.82 Scrotal pain; R13.10 Dysphagia, unspecified; Z82.49 Family history of ischemic heart disease and other diseases of the circulatory system; Z86.711 Personal history of pulmonary embolism; Z86.718 Personal history of other venous thrombosis and embolism; Z86.73 Personal history of transient ischemic attack (TIA), and cerebral infarction without residual deficits; Z87.891 Personal history of nicotine dependence; Z93.1 Gastrostomy status; D64.9 Anemia, unspecified; Z88.8 Allergy status to other drugs, medicaments and biological substances; Z79.899 Other long term (current) drug therapy
CPT/HCPCS: 36415; 36556; 36569; 36600; 70360; 71045; 76937; 80053; 82805; 82962; 83735; 85025; 85027; 85610; 85730; 93005; 94002; 94003; 96372; A4930; A7521; A7526; C1892; J0171; J0330; J1100; J1200; J2060; J2250; J2704; J3010; J3475; J3490; J7120; 99291-25; G0378; Q0163

== ENCOUNTER 2021-09-13 09:12 | Emergency (ER) | payer MEDICAID ==
[~2021-09-13] VITALS: Ht 185.4 cm; Wt 86.0 kg
[~2021-09-13 09:12] MED LIST changes: +OLAN5TAB7 PO; +POLY17PO52 PO; +SENN-209 PO
[2021-09-13 09:53] VITALS: BP 180/97
--- NOTE | 2021-09-13 10:21 | PHYS DOC ---
Past Medical History Past Medical History: CVA, Diabetes-Type II, DVT, DE Additional Past Medical Histor: PE,substance abuse,HEREDITARY ANGIOEDEMA,SARCOIDOSIS,ACUTE RESP FAILURE Past Surgical History: Cholecystectomy, Other Additional Past Surgical Histo: CHEST TUBE INSERTION;PEG TUBE,PAC X 2,INTUBATED 18X'S, TRACH COLLAR Smoking Status: Never Smoker Alcohol Use: None Drug Use: None General Adult EDM: Chief Complaint: OTHER COMPLAINTS HPI: HPI: Patient is a 51 year old male who presents with here with chronic chest pain and abdominal bloating and groin bloating. States he is having angioedema in his abdomen, chest and groin. Patient was at [place] a week ago and states that the doctor there stated that our surgery Dr. Smith and also dropped his trach and almost killed him because he got clogged up and they had to replace it. Patient is rating his chest is abdominal pain a 10 out of 10. He states he cannot take any p.o. pain medications. Patient has a history of substance abuse, drug-seeking behavior, PE, CVA, DVT, cholecystectomy, PEG tube, PA-C x2, trach, hereditary angioedema, sarcoidosis, acute respiratory failure, DE, diabetes. Patient states he is still taking Eliquis. Review of Systems: Review of Systems: Constitutional: Denies fever or chills. [] Eyes: Denies change in visual acuity. [] HENT: Denies nasal congestion or sore throat. [] Respiratory: Denies cough or shortness of breath. [] Cardiovascular: + chest pain or denies edema. [] GI: +abdominal pain, + abdominal bloating, denies nausea, vomiting, bloody stools or diarrhea. [] : Denies dysuria. [] Musculoskeletal: Denies back pain or joint pain. [] Integument: Denies rash. [] Neurologic: Denies headache, focal weakness or sensory changes. [] Endocrine: Denies polyuria or polydipsia. [] Lymphatic: Denies swollen glands. [] Psychiatric: Denies depression or anxiety. [] Heart Score: C/O Chest Pain: Yes HEART Score for Chest Pain: HEART Score for Chest Pain Response (Comments) Value History Slighlty/Non-Suspicious 0 ECG Normal 0 Age >45 - < 65 1 Risk Factors 1 or 2 Risk Factors 1 Troponin < Normal Limit 0 Total 2 Risk Factors: Risk Factors: DM, Current or recent (<one month) smoker, HTN, HLP, family history of CAD, obesity. Risk Scores: Score 0 - 3: 2.5% MACE over next 6 weeks - Discharge Home Score 4 - 6: 20.3% MACE over next 6 weeks - Admit for Clinical Observation Score 7 - 10: 72.7% MACE over next 6 weeks - Early Invasive Strategies Allergies: Allergies: Allergies Coded Allergies Type Severity Reaction Last Updated Verified iodine Allergy Severe 09/15/19 Yes metoclopramide Allergy Severe 09/15/19 Yes ondansetron Allergy Severe ANAPHYLAXIS 09/15/19 Yes prochlorperazine Allergy Severe 09/16/20 Yes Corticosteroids (Glucocorticoids) Allergy Intermediate MAKES HIM SICK 08/18/21 Yes NSAIDS (Non-Steroidal Anti-Inflamma Allergy Intermediate 09/15/19 Yes aspirin Allergy Intermediate 09/15/19 Yes morphine Allergy Intermediate 09/15/19 Yes orphenadrine Allergy Intermediate 08/28/21 Yes prednisone Allergy Intermediate 09/15/19 Yes Physical Exam: PE: Constitutional: Well developed, well nourished, no acute distress, non-toxic appearance. [] HENT: Normocephalic, atraumatic, bilateral external ears normal, oropharynx moist, no oral exudates, nose normal. [] Eyes: PERRLA, EOMI, conjunctiva normal, no discharge. [] Neck: Normal range of motion, no tenderness, supple, no stridor. Tracheostomy in place. [] Cardiovascular:Heart rate regular rhythm, no murmur [] Lungs & Thorax: Bilateral breath sounds clear to auscultation [] Abdomen: Bowel sounds normal, soft, no tenderness, no masses, no pulsatile masses. [] Skin: Warm, dry, no erythema, no rash. [] Back: No tenderness, no CVA tenderness. [] Extremities: No tenderness, no cyanosis, no clubbing, ROM intact, no edema. [] Neurologic: Alert and oriented X 3, normal motor function, normal sensory function, no focal deficits noted. [] Psychologic: Affect normal, judgement normal, mood normal. [] EKG: EK [address] Hagan as a sinus rhythm with T inversion in V2 and V3 And no STEMI Radiology/Procedures: Radiology/Procedures: [] Impression: [facility] [address] [place] [address] IMAGING REPORT Signed PATIENT: JAY WHITE CACCOUNT: [id number] : 1970 LOCATION: ER AGE: 51 SEX: M EXAM STATUS: REG ER ORD. PHYSICIAN: SHWETHA AME APRN REASON: bloating, chest pain PROCEDURE: ACUTE ABDOMEN SERIES XR ABDOMEN COMP ACUTE History: Reason: bloating, chest pain / Spl. Instructions: / History: Technique: Upright and supine views of the abdomen. Comparison: None. Findings: IVC filter noted. Mild small bowel gas. Air and stool scattered throughout the imaged colon. No consolidation or pleural effusion. No pneumothorax. Normal heart size. Tracheostomy tube noted. No pneumoperitoneum. Lower lumbar spondylosis. Surgical clips right upper quadrant. Impression: 1. Nonobstructed bowel gas pattern. Electronically signed by: Bobo Hopkins DO (09/13/2021 10:39 AM) [facility] DICTATED and SIGNED BY: BOBO HOPKINS DO DATE: 09/13/21 [id number] 0 Course & Med Decision Making: Course & Med Decision Making Pertinent Labs and Imaging studies reviewed. (See chart for details) See HPI. Patient was here on August 22 and on September 02 Dr Corbin and edwin note states the following "Overnight patient continued to call the embossing machine operator helper to ask to call to his nurse 1: It was not responded to within 30 seconds. Patient continues to be demanding and pulled out his inner cannula for his trach. Nursing notes despite his IV PPI n.p.o. orders he has been going to the refrigerator to eat food cuff deflated for his trach. About 45 minutes after initial examination patient was noted to leave the unit in an elevator and found outside of the loading docks. Police were contacted given that he left the hospital AGAINST MEDICAL ADVICE with a central venous catheter. I discussed with nursing staff and nursing airline managerial supervisor patient needs to return to hospital and please custody to have central venous catheter removed as this could be an immediate threat to his health. Patient is left the hospital AGAINST MEDICAL ADVICE." Alert and oriented x4. Speaks in full clear sentences. Lungs are clear all station all lobes. Vital signs within normal limits. Skin pink warm and dry. No central line is seen so patient must have taken it out himself or it was taken out at [facility] a week ago when he was there. Abdomen is soft and nontender. EKG is a sinus rhythm and no STEMI. Radiology wanted to do the acute abdominal series and at first he stated " no" but then radiology asked if they could please just do x-rays and then they would send the physician in to see him. I read the patient Tylenol suppository for pain relief. Patient states that he is needing narcotic pain medication for his pain. Patient is educated that he would not be getting narcotic pain medication at this visit unless it is warranted by his exam findings. Patient leaving AMA. Marguerite Disclaimer: Marguerite Disclaimer: This electronic medical record was generated, in whole or in part, using a voice recognition dictation system. Departure Departure Impression: Primary Impression: Left against medical advice Additional Impression: Drug-seeking behavior Disposition: 07 LEFT AGAINST MEDICAL ADVICE Condition: STABLE Referrals: NO PCP (PCP) SHWETHA MAE COMMUNITY WORKER Sep 13, 2021 10:20
[2021-09-13] MEDS ORDERED: ACETAMINOPHEN 650 MG SUPP.RECT. PR ONE (10:30)
--- NOTE | 2021-09-13 10:42 | RAD ---
XR ABDOMEN COMP ACUTE History: Reason: bloating, chest pain / Spl. Instructions: / History: Technique: Upright and supine views of the abdomen. Comparison: None. Findings: IVC filter noted. Mild small bowel gas. Air and stool scattered throughout the imaged colon. No conso lidation or pleural effusion. No pneumothorax. Normal heart size. Tracheostomy tube noted. No pneumop eritoneum. Lower lumbar spondylosis. Surgical clips right upper quadrant. Impression: 1. Nonobstructed bowel gas pattern. Electronically signed by: Bobo Hopkins DO (09/13/2021 10:39 AM) [facility]
--- NOTE | 2021-09-13 18:47 | EKG ---
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
== END 2021-09-13 10:42 | disposition left against medical advice (07) ==
LOC: ER 09:12
DX: Z76.5 Malingerer [conscious simulation] (principal); R07.89 Other chest pain; R14.0 Abdominal distension (gaseous); E11.9 Type 2 diabetes mellitus without complications; I25.2 Old myocardial infarction; Z86.73 Personal history of transient ischemic attack (TIA), and cerebral infarction without residual deficits; Z86.718 Personal history of other venous thrombosis and embolism; Z90.49 Acquired absence of other specified parts of digestive tract; Z88.5 Allergy status to narcotic agent; Z88.6 Allergy status to analgesic agent; Z88.8 Allergy status to other drugs, medicaments and biological substances; Z88.1 Allergy status to other antibiotic agents
CPT/HCPCS: 74022; 93005; 99283; 99284; 99285